=== PATIENT | female | born 1945 | race Caucasian/White ===

== ENCOUNTER → 2016-11-26 | Outpatient (CLI) | payer MEDICARE, BC ==
[2016-11-26 08:54] LABS: CHLORIDE,CL 108 mmol/L (98-110); SODIUM,NA 142 mmol/L (136-146)
== END ==
LOC: MW.CHFP 08:01
PROVIDERS: ATTEND Emergency Medicine
DX: I10 Essential (primary) hypertension (principal); K21.9 Gastro-esophageal reflux disease without esophagitis; K30 Functional dyspepsia
CPT/HCPCS: 36415; 80048; 80061; 99214

== ENCOUNTER → 2016-12-18 | Outpatient (CLI) | payer MEDICARE, BC | LOC: MW.CHFP 08:00 | PROVIDERS: ATTEND Emergency Medicine | DX: H10.10 Acute atopic conjunctivitis, unspecified eye (principal) | CPT/HCPCS: G0463 ==

== ENCOUNTER → 2016-12-27 | Outpatient (CLI) | payer MEDICARE, BC ==
--- NOTE | 2016-12-27 11:09 | US ---
ULTRASOUND EXAMINATION OF the left lower extremity WITH DOPPLER HISTORY: Pain FINDINGS: Examination of the left leg was performed from the groin to the calf region. All visualized segment s including common femoral, proximal greater saphenous, superficial femoral, popliteal and calf vein s appear patent with good compressibility and augmentation. There is no evidence of deep vein throm bosis. IMPRESSION: No evidence of a DVT.
== END ==
LOC: MW.CHFP 09:16
PROVIDERS: ATTEND Emergency Medicine
DX: M79.669 Pain in unspecified lower leg (principal)
CPT/HCPCS: 93971-26-LT; 93971-LT; G0463

== ENCOUNTER 2017-12-14 09:08 | Emergency (ER) | payer MEDICARE, BC ==
[2017-12-14] MEDS ORDERED: Sodium Chloride 0.9% 10 ML Syringe FLUSH PRN (09:48)
[2017-12-14] MEDS ORDERED: Sodium Chloride 0.9% 2.5 ML Syringe FLUSH PRN (09:48)
--- NOTE | 2017-12-14 09:51 | EDM.PDOC ---
ED HPI GENERAL MEDICAL PROBLEM - General Chief Complaint: Abdominal Pain Stated Complaint: ABDOMINAL PAIN Time Seen by Provider: 12/14/17 09:39 - History of Present Illness INITIAL COMMENTS - FREE TEXT/NARRATIVE: HISTORY AND PHYSICAL: History of present illness: The patient is a 72-year-old female has a history of hypertension and multiple myeloma and follows with Dr. Kirkland in our clinic and presents with complaints of one week of vague left lower and left mid abdominal pain without associated fevers chills nausea or vomiting. The patient said the pain got worse last evening and she had a restless night and she has not had a bowel movement for 2 days but then this morning did have a normal bowel movement without black or bloody stools. It was not hard in character this morning nor was it hard to pass. She said the bowel movement did not make her feel any better. She has no flank pain and no urinary complaints. Patient has a history of diverticulitis with flareups in the past and also has a surgical history of a hysterectomy appendectomy and colon resection for "ruptured intestines". She did not take anything specifically for pain. She has not had anything to eat or drink this morning. She describes the pain as annoying dull and deep and it radiates to her left back. For her history of multiple myeloma she is on oral chemotherapy. She also has an appointment with Dr. Kirkland in the clinic in several days but says she could not wait to see him due to the increase in pain last evening. Review of systems: As per history of present illness and below otherwise all systems reviewed and negative. Past medical history: As per history of present illness and as reviewed below otherwise noncontributory. Surgical history: As per history of present illness and as reviewed below otherwise noncontributory. Social history: No reported history of drug or alcohol abuse. Family history: As per history of present illness and as reviewed below otherwise noncontributory. Physical exam: General: Well-developed well-nourished female who moves easily in the ED without distress. Vital signs are noted by me HEENT: Atraumatic, normocephalic, negative for conjunctival pallor or scleral icterus, mucous membranes moist, throat clear, neck supple, nontender, trachea midline. Lungs: Clear to auscultation, breath sounds equal bilaterally, chest nontender. Heart: S1S2, regular rate and rhythm no overt murmurs Abdomen: Soft, nondistended, bowel sounds are slightly hypoactive but there is no tympany on percussion. There is discrete tenderness on palpation in the left lower and left mid abdominal areas with some voluntary guarding but no involuntary guarding or rebound. Negative for masses or hepatosplenomegaly. Negative for costovertebral tenderness. Pelvis: Stable nontender. Genitourinary: Deferred. Rectal: Deferred. Extremities: Atraumatic, negative for cords or calf pain. Neurovascular unremarkable. Neuro: Awake, alert, oriented. Cranial nerves II through XII unremarkable. Cerebellum unremarkable. Motor and sensory unremarkable throughout. Exam nonfocal. Diagnostics: CBC CMP lactic acid UA CT scan of the abdomen and pelvis Urine culture Therapeutics: IV fluids, patient deferred pain medications on my initial evaluation. Lynnette Dhillon testing results with the patient and have advised on increasing potassium in her diet. We will give her antibiotics for home as well as Bentyl and recommend close follow-up but she tells me she does have an appointment next week for follow-up. Impression: Left lower abdominal pain with descending colonic diverticulitis, UTI, mild hypokalemia Definitive disposition and diagnosis as appropriate pending reevaluation and review of above. left lower abd Pain Score (Numeric/FACES): 8 - Related Data Allergies Allergy/AdvReac Type Severity Reaction Status Date / Time codeine Allergy Difficulty Verified 12/21/15 14:58 Breathing Home Meds: Home Meds Bisoprolol/Hydrochlorothiazide [Bisoprolol/HCTZ 2.5-6.25 MG] 1 tab PO ACBRK [History] Potassium Chloride [Klor-Con 10] 2 tab PO ACBRK 01/01/14 [History] amLODIPine Besylate [Amlodipine Besylate] 5 mg PO ACBRK 01/01/14 [History] Aspirin 1 tab PO DAILY 12/17/15 [History] Calcium Carbonate/Vitamin D3 [Calcium 600 + Vit D Softgel] 1 cap PO DAILY [History] Cholecalciferol (Vitamin D3) [Vitamin D3] 1 tab PO DAILY 12/17/15 [History] Cyanocobalamin (Vitamin B12) [Vitamin B12] 1 tab PO DAILY 12/17/15 [History] Multivitamin [Multivitamins] 1 tab PO DAILY 12/17/15 [History] Lenalidomide [Revlimid] 20 mg PO DAILY 12/14/17 [History] Losartan [Cozaar] 100 mg PO DAILY 12/14/17 [History] Sucralfate 1 gm PO QID 12/14/17 [History] Past Medical History HEENT History: Reports: None Cardiovascular History: Reports: Hypertension Respiratory History: Reports: None Gastrointestinal History: Reports: Diverticulosis, Irritable Bowel Syndrome Other Gastrointestinal History: heartburn Genitourinary History: Reports: None 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 Dermatologic History: Reports: Other (See Below) Other Dermatologic History: Smoldering Myeloma - Infectious Disease History Infectious Disease History: Reports: Chicken Pox, Measles - Past Surgical History Head Surgeries/Procedures: Reports: None HEENT Surgical History: Reports: None GI Surgical History: Reports: Small Bowel Female Surgical History: Reports: Hysterectomy Endocrine Surgical History: Reports: None Neurological Surgical History: Reports: None Musculoskeletal Surgical History: Reports: None Social & Family History - Family History Family Medical History: Unobtainable HEENT: Reports: None Cardiac: Reports: None - Tobacco Use Smoking Status *Q: Never Smoker Month/Year Tobacco Last Used: Quit smoking 40 yrs ago Second Hand Smoke Exposure: No - Caffeine Use Caffeine Use: Reports: Soda - Alcohol Use Days Per Week of Alcohol Use: 0 Number of Drinks Per Day: 0 Total Drinks Per Week: 0 - Recreational Drug Use Recreational Drug Use: No ED ROS GENERAL - Review of Systems Review Of Systems: ROS reveals no pertinent complaints other than HPI. ED EXAM, GENERAL - Physical Exam Exam: See Below (See dictation) Course - Vital Signs Last Recorded V/S: Last Vital Signs Temp 36.9 C 12/14/17 11:38 Pulse 65 12/14/17 11:38 Resp 18 12/14/17 11:38 BP 99/49 L 12/14/17 11:38 Pulse Ox 96 12/14/17 11:38 - Orders/Labs/Meds Orders: Active Orders 24 hr Category Date Time Status Abdomen Pelvis w Cont [CT] Stat Exams 12/14/17 09:48 Taken CULTURE URINE [RM] Stat Lab 12/14/17 09:30 Received UA W/MICROSCOPIC [URIN] Stat Lab 12/14/17 09:30 Ordered Sodium Chloride 0.9% [Normal Saline] 500 ml Med 12/14/17 10:00 Active IV STAT Sodium Chloride 0.9% [Saline Flush] Med 12/14/17 09:48 Active 10 ml FLUSH ASDIRECTED PRN Sodium Chloride 0.9% [Saline Flush] Med 12/14/17 09:48 Active 2.5 ml FLUSH ASDIRECTED PRN metroNIDAZOLE/Normal Saline [Flagyl 500 MG in NS 100 ML Med 12/14/17 12:10 Active ] 500 mg Premix Bag 1 bag IV ONETIME Saline Lock Insert [OM.PC] Stat Oth 12/14/17 09:48 Ordered Medication Orders Sodium Chloride (Normal Saline) 500 mls @ 999 mls/hr IV STAT MARISA Last Admin: 12/14/17 10:24 Dose: 999 mls/hr Metronidazole 500 mg/ Premix 100 mls @ 100 mls/hr IV ONETIME ONE Stop: 12/14/17 13:09 Sodium Chloride (Saline Flush) 10 ml FLUSH ASDIRECTED PRN PRN Reason: Keep Vein Open Sodium Chloride (Saline Flush) 2.5 ml FLUSH ASDIRECTED PRN PRN Reason: Keep Vein Open Labs: Laboratory Tests 12/14/17 12/14/17 12/14/17 Range/Units 09:30 09:57 09:57 WBC 7.55 (4.0-11.0) K/uL RBC 3.61 L (4.30-5.90) M/uL Hgb 12.4 (12.0-16.0) g/dL Hct 35.2 L (36.0-46.0) % MCV 97.5 (80.0-98.0) fL MCH 34.3 H (27.0-32.0) pg MCHC 35.2 (31.0-37.0) g/dL RDW Std Deviation 46.1 (28.0-62.0) fl RDW Coeff of Bubba 13 (11.0-15.0) % Plt Count 192 (150-400) K/uL MPV 10.40 (7.40-12.00) fL Add Manual Diff YES Neutrophils % (Manual) 62 (48.0-80.0) % Band Neutrophils % 10 % Lymphocytes % (Manual) 13 L (16.0-40.0) % Monocytes % (Manual) 12 (0.0-15.0) % Eosinophils % (Manual) 3 (0.0-7.0) % Nucleated RBC % 0.0 /100WBC Absolute Seg Neuts 4.7 (1.4-5.7) Band Neutrophils # 0.8 Lymphocytes # (Manual) 1.0 (0.6-2.4) Monocytes # (Manual) 0.9 H (0.0-0.8) Eosinophils # (Manual) 0.2 (0.0-0.7) Nucleated RBCs # 0 K/uL Lactate 1.6 (0.20-2.00) mmol/L Sodium (136-145) mmol/L Potassium (3.5-5.1) mmol/L Chloride (98-107) mmol/L Carbon Dioxide (21.0-32.0) mmol/L BUN (7.0-18.0) mg/dL Creatinine (0.6-1.0) mg/dL Est Cr Clr Drug Dosing mL/min Estimated GFR (MDRD) ml/min Glucose (74-106) mg/dL Calcium (8.5-10.1) mg/dL Magnesium (1.5-2.0) mg/dL Total Bilirubin (0.2-1.0) mg/dL AST (15-37) IU/L ALT (14-63) IU/L Alkaline Phosphatase (46-116) U/L Total Protein (6.4-8.2) g/dL Albumin (3.4-5.0) g/dL Globulin (2.0-3.5) g/dL Albumin/Globulin Ratio (1.3-2.8) Urine Color YELLOW Urine Appearance CLEAR Urine pH 6.0 (5.0-8.0) Ur Specific Lincoln 1.020 (1.001-1.035) Urine Protein NEGATIVE (NEGATIVE) mg/dL Urine Glucose (UA) NEGATIVE (NEGATIVE) mg/dL Urine Ketones NEGATIVE (NEGATIVE) mg/dL Urine Occult Blood NEGATIVE (NEGATIVE) Urine Nitrite POSITIVE H (NEGATIVE) Urine Bilirubin NEGATIVE (NEGATIVE) Urine Urobilinogen 0.2 (<2.0) EU/dL Ur Leukocyte Esterase NEGATIVE (NEGATIVE) Urine RBC 0-1 (0-2/HPF) Urine WBC 0-1 (0-5/HPF) Ur Epithelial Cells OCCASIONAL (NONE-FEW) Urine Bacteria 1+ H (NEGATIVE) Urine Mucus LIGHT (NONE-MOD) 12/14/17 12/14/17 Range/Units 09:57 09:57 WBC (4.0-11.0) K/uL RBC (4.30-5.90) M/uL Hgb (12.0-16.0) g/dL Hct (36.0-46.0) % MCV (80.0-98.0) fL MCH (27.0-32.0) pg MCHC (31.0-37.0) g/dL RDW Std Deviation (28.0-62.0) fl RDW Coeff of Bubba (11.0-15.0) % Plt Count (150-400) K/uL MPV (7.40-12.00) fL Add Manual Diff Neutrophils % (Manual) (48.0-80.0) % Band Neutrophils % % Lymphocytes % (Manual) (16.0-40.0) % Monocytes % (Manual) (0.0-15.0) % Eosinophils % (Manual) (0.0-7.0) % Nucleated RBC % /100WBC Absolute Seg Neuts (1.4-5.7) Band Neutrophils # Lymphocytes # (Manual) (0.6-2.4) Monocytes # (Manual) (0.0-0.8) Eosinophils # (Manual) (0.0-0.7) Nucleated RBCs # K/uL Lactate (0.20-2.00) mmol/L Sodium 140 (136-145) mmol/L Potassium 2.8 L (3.5-5.1) mmol/L Chloride 103 (98-107) mmol/L Carbon Dioxide 27.4 (21.0-32.0) mmol/L BUN 9 (7.0-18.0) mg/dL Creatinine 0.9 (0.6-1.0) mg/dL Est Cr Clr Drug Dosing 49.16 mL/min Estimated GFR (MDRD) > 60.0 ml/min Glucose 111 H (74-106) mg/dL Calcium 9.0 (8.5-10.1) mg/dL Magnesium 1.9 (1.5-2.0) mg/dL Total Bilirubin 1.0 (0.2-1.0) mg/dL AST 13 L (15-37) IU/L ALT 14 (14-63) IU/L Alkaline Phosphatase 59 (46-116) U/L Total Protein 6.3 L (6.4-8.2) g/dL Albumin 2.9 L (3.4-5.0) g/dL Globulin 3.4 (2.0-3.5) g/dL Albumin/Globulin Ratio 0.9 L (1.3-2.8) Urine Color Urine Appearance Urine pH (5.0-8.0) Ur Specific Lincoln (1.001-1.035) Urine Protein (NEGATIVE) mg/dL Urine Glucose (UA) (NEGATIVE) mg/dL Urine Ketones (NEGATIVE) mg/dL Urine Occult Blood (NEGATIVE) Urine Nitrite (NEGATIVE) Urine Bilirubin (NEGATIVE) Urine Urobilinogen (<2.0) EU/dL Ur Leukocyte Esterase (NEGATIVE) Urine RBC (0-2/HPF) Urine WBC (0-5/HPF) Ur Epithelial Cells (NONE-FEW) Urine Bacteria (NEGATIVE) Urine Mucus (NONE-MOD) Meds: Medications Generic Name Dose Route Start Last Admin Trade Name Freq PRN Reason Stop Dose Admin Sodium Chloride 500 mls @ 999 mls/hr 12/14/17 10:00 12/14/17 10:24 Normal Saline IV 999 mls/hr STAT MARISA Administration Metronidazole 500 mg/ Premix 100 mls @ 100 mls/hr 12/14/17 12:10 IV 12/14/17 13:09 ONETIME ONE Sodium Chloride 10 ml 12/14/17 09:48 Saline Flush FLUSH ASDIRECTED PRN Keep Vein Open Sodium Chloride 2.5 ml 12/14/17 09:48 Saline Flush FLUSH ASDIRECTED PRN Keep Vein Open Discontinued Medications Generic Name Dose Route Start Last Admin Trade Name Freq PRN Reason Stop Dose Admin Ciprofloxacin 500 mg 12/14/17 12:10 Ciprofloxacin Hcl PO 12/14/17 12:11 ONETIME ONE Iopamidol 70 ml 12/14/17 11:04 12/14/17 11:20 Isovue Multipack-370 (76%) IVPUSH 12/14/17 11:05 70 ml ONETIME ONE Administration Potassium Chloride 40 meq 12/14/17 10:56 12/14/17 11:35 Klor-Con M20 PO 12/14/17 10:57 40 meq ONETIME ONE Administration Departure - Departure Time of Disposition: 12:15 Disposition: Home, Self-Care 01 Condition: Good Clinical Impression: Diverticulitis of colon UTI (urinary tract infection) Qualifiers: Urinary tract infection type: site unspecified Hematuria presence: without hematuria Qualified Code(s): N39.0 - Urinary tract infection, site not specified - Discharge Information Referrals: Jonnathan Kirkland MD [Primary Care Provider] - Forms: ED Department Discharge Additional Instructions: The following information is given to patients seen in the emergency department who are being discharged to home. This information is to outline your options for follow-up care. We provide all patients seen in our emergency department with a follow-up referral. The need for follow-up, as well as the timing and circumstances, are variable depending upon the specifics of your emergency department visit. If you don't have a primary care physician on staff, we will provide you with a referral. We always advise you to contact your personal physician following an emergency department visit to inform them of the circumstance of the visit and for follow-up with them and/or the need for any referrals to a consulting specialist. The emergency department will also refer you to a specialist when appropriate. This referral assures that you have the opportunity for followup care with a specialist. All of these measure are taken in an effort to provide you with optimal care, which includes your followup. Under all circumstances we always encourage you to contact your private physician who remains a resource for coordinating your care. When calling for followup care, please make the office aware that this follow-up is from your recent emergency room visit. If for any reason you are refused follow-up, please contact the [facility] emergency department at and ask to speak to the emergency department charge nurse. [facility]- Internal Medicine and Family [address] [address] Please fill all prescriptions and start them today. Push hydration and use over- the-counter meds for pain as needed. Please keep your appointment next week with your provider for follow-up and further care and return to ER as needed and as discussed. - My Orders Last 24 Hours: My Active Orders 12/14/17 09:30 CULTURE URINE [RM] Stat UA W/MICROSCOPIC [URIN] Stat 12/14/17 09:48 Abdomen Pelvis w Cont [CT] Stat Sodium Chloride 0.9% [Saline Flush] 10 ml FLUSH ASDIRECTED PRN Sodium Chloride 0.9% [Saline Flush] 2.5 ml FLUSH ASDIRECTED PRN Saline Lock Insert [OM.PC] Stat 12/14/17 10:00 Sodium Chloride 0.9% [Normal Saline] 500 ml IV STAT 12/14/17 12:10 metroNIDAZOLE/Normal Saline [Flagyl 500 MG in NS 100 ML] 500 mg Premix Bag 1 bag IV ONETIME - Assessment/Plan Last 24 Hours: My Active Orders 12/14/17 09:30 CULTURE URINE [RM] Stat UA W/MICROSCOPIC [URIN] Stat 12/14/17 09:48 Abdomen Pelvis w Cont [CT] Stat Sodium Chloride 0.9% [Saline Flush] 10 ml FLUSH ASDIRECTED PRN Sodium Chloride 0.9% [Saline Flush] 2.5 ml FLUSH ASDIRECTED PRN Saline Lock Insert [OM.PC] Stat 12/14/17 10:00 Sodium Chloride 0.9% [Normal Saline] 500 ml IV STAT 12/14/17 12:10 metroNIDAZOLE/Normal Saline [Flagyl 500 MG in NS 100 ML] 500 mg Premix Bag 1 bag IV ONETIME
[2017-12-14] MEDS ORDERED: Sodium Chloride 0.9% 500 ML IV SCH (10:00)
[2017-12-14 10:27] LABS: CHLORIDE,CL 103 mmol/L (98-107); SODIUM,NA 140 mmol/L (136-145)
[2017-12-14] MEDS ORDERED: Potassium Chloride 20 MEQ Tab.ER PO ONE (10:56)
[2017-12-14] MEDS ORDERED: Iopamidol 755 MG/ML 200 ML Multipack Bottle IVPUSH ONE (11:04)
[2017-12-14 11:41] VITALS: BP 99/49
[2017-12-14] MEDS ORDERED: Ciprofloxacin 500 MG Tab PO ONE (12:10)
[2017-12-14] MEDS ORDERED: metroNIDAZOLE/Normal Saline 500 MG in Premix Bag 1 BAG IV ONE (12:10)
--- NOTE | 2017-12-16 13:35 | CT ---
EXAM DATE: 12/14/17 PATIENT'S AGE: 72 Patient: YOLANDE SHEPPARD Facility: [place], [place] Site . Site : 1945 Study: CT Abdomen/Pelvis W NIKKY [id number] 11:26:31 AM Ordering Physician: Kit Martinez Final Report: INDICATION: Left lower quadrant abdominal pain. TECHNIQUE: CT abdomen and pelvis acquired with IV contrast. COMPARISON: CT 12/21/2015. FINDINGS: Lower chest: Unremarkable. Liver: There is focal fatty infiltration at the falciform ligament. Spleen: Unremarkable. Pancreas: Unremarkable. Gallbladder and bile ducts: Stable mild central intrahepatic biliary duct dilatation and dilatation of the proximal common bile duct is likely secondary to reservoir effect of cholecystectomy. Kidneys: Stable low-density lesion in the posterior lower pole of the right kidney. No other renal lesion. No hydronephrosis in either kidney. Adrenal glands: Stable thickening of the left adrenal gland. Right adrenal gland is normal. GI tract: There is abundant diverticulosis. There is wall thickening and pericolonic inflammatory stranding adjacent to the distal descending colon consistent with diverticulitis. No evidence of perforation or abscess formation. Likely sequelae of appendectomy noted. No acute small bowel abnormality. Vascular structures: No sign of aneurysm. Mild atherosclerotic calcification noted. Lymph nodes: Unremarkable. Miscellaneous: No ascites. No free air. Essentially stable appearance of left paramidline infraumbilical fat containing hernia. Pelvic Organs: The uterus is absent. Urinary bladder is normal. Bones: No acute abnormality. No suspicious bone lesion. Moderate degenerative disc disease at L5-S1. IMPRESSION: 1. Acute uncomplicated diverticulitis of the distal descending colon. 2. The remainder of the study is stable. Dictated by Jose Antonio Cho MD @ 12/14/2017 11:52:04 AM Please note that all CT scans at this facility use dose modulation, iterative reconstruction, and/or weight-based dosing when appropriate to reduce radiation dose to as low as reasonably achievable. Dictated by: Jose Antonio Cho MD @ 12/14/2017 11:52:21 (Electronic Signature) Report Signed by Proxy. [facility]
== END 2017-12-14 13:45 | disposition home or self-care (01) ==
LOC: MW.ED 09:08
DX: K57.30 Diverticulosis of large intestine without perforation or abscess without bleeding (principal); N39.0 Urinary tract infection, site not specified; I10 Essential (primary) hypertension; Z88.5 Allergy status to narcotic agent; Z79.82 Long term (current) use of aspirin; Z79.899 Other long term (current) drug therapy; Z87.891 Personal history of nicotine dependence; Z90.49 Acquired absence of other specified parts of digestive tract
CPT/HCPCS: 36415; 74177; 80053; 81001; 83605; 83735; 85025; 87086; 87088; 87186; 96361; 96365; 99284; A9270; J7040; Q9967; 99283

== ENCOUNTER 2018-01-16 13:23 | Emergency (ER) | payer MEDICARE, BC ==
[2018-01-16] MEDS ORDERED: Sodium Chloride 0.9% 1,000 ML IV ONE (14:13)
--- NOTE | 2018-01-16 14:22 | EDM.PDOC ---
ED HPI GENERAL MEDICAL PROBLEM - General Chief Complaint: Gastrointestinal Problem Stated Complaint: BLEEDING Time Seen by Provider: 01/16/18 13:55 Source of Information: Reports: Patient History Limitations: Reports: No Limitations - History of Present Illness INITIAL COMMENTS - FREE TEXT/NARRATIVE: HISTORY AND PHYSICAL: History of present illness: Patient is a 72-year-old female who presents to the emergency room today with complaints of abdominal pain 2 days and one episode bloody stool about 11:30 this afternoon. She does have a history of multiple GI problems which include but are not limited to IBS and diverticulitis. She states she was recently treated with antibiotics (which she has completed) for her diverticulitis but has never had bloody bowel movements in the past. She denies any fever, chills, chest pain, shortness of breath or cough. She denies any vomiting, diarrhea, constipation. Review of systems: As per history of present illness and below otherwise all systems reviewed and negative. Past medical history: As per history of present illness and as reviewed below otherwise noncontributory. Surgical history: As per history of present illness and as reviewed below otherwise noncontributory. Social history: No reported history of drug or alcohol abuse. Family history: As per history of present illness and as reviewed below otherwise noncontributory. Physical exam: General: Well-developed and well-nourished 72-year-old female. Alert and oriented. Nontoxic appearing and in no acute distress. HEENT: Atraumatic, normocephalic, pupils equal and reactive bilaterally, negative for conjunctival pallor or scleral icterus, mucous membranes moist, throat clear, neck supple, nontender, trachea midline. No drooling or trismus noted. No meningeal signs Lungs: Clear to auscultation, breath sounds equal bilaterally, chest nontender. Heart: S1S2, regular rate and rhythm without overt murmur Abdomen: Soft, nondistended, generalized/diffuse tenderness in all 4 quadrants. Negative for masses or hepatosplenomegaly. Mild costovertebral tenderness to right flank. Pelvis: Stable nontender. Genitourinary: Deferred. Rectal: This was done with a new vehicle sales consultant at the bedside. Patient does have external hemorrhoids noted. Good rectal tone. Hemoccult was positive. Although please note that he stool sample did not have any obvious blood in the sample or on my gloved finger. Skin: Intact, warm, dry. No lesions or rashes noted. Extremities: Atraumatic, negative for cords or calf pain. Neurovascular unremarkable. Neuro: Awake, alert, oriented. Cranial nerves II through XII unremarkable. Cerebellum unremarkable. Motor and sensory unremarkable throughout. Exam nonfocal. Notes: Rectal exam was done with new vehicle sales consultant at bedside. She is Hemoccult positive. We' ll do a CT of her abdomen and pelvis due to her multiple GI conditions/previous surgeries. Patient and deny any further questions at this time. Patient does not currently have an elevated WBC. Her hemoglobin is stable from previous lab draws. CT of the abdomen shows diverticulosis with resolution diverticulitis. This information was shared with the patient. She has not had any bloody stools, just the one isolated episode. She voices that she leaves that she had "hemorrhoid that broke open and let loose". She denies any dizziness or lightheadedness when changing positions or moving about. Vital signs are stable. States that she is comfortable going home, declines admission. Diagnostics: CBC, CMP, H. pylori CT abdomen and pelvis, UA Therapeutics: IV fluid, Bentyl PO Impression: Abdominal Pain History of Diverticulosis Plan: 1. An appointment has been made for you to see Dr. Zafar tomorrow (01/17/2018) at 10:30am at [facility]. 2. As we discussed, please follow-up with your primary care provider for further evaluation and management. Return to the ED as needed and as discussed. Definitive disposition and diagnosis as appropriate pending reevaluation and review of above. Bilateral Lower Abdomen Pain Score (Numeric/FACES): 8 - Related Data Allergies Allergy/AdvReac Type Severity Reaction Status Date / Time codeine Allergy Difficulty Verified 01/16/18 14:08 Breathing Home Meds: Home Meds Bisoprolol/Hydrochlorothiazide [Bisoprolol/HCTZ 2.5-6.25 MG] 1 tab PO ACBRK [History] Potassium Chloride [Klor-Con 10] 2 tab PO ACBRK 01/01/14 [History] amLODIPine Besylate [Amlodipine Besylate] 5 mg PO ACBRK 01/01/14 [History] Aspirin 1 tab PO DAILY 12/17/15 [History] Calcium Carbonate/Vitamin D3 [Calcium 600 + Vit D Softgel] 1 cap PO DAILY [History] Cholecalciferol (Vitamin D3) [Vitamin D3] 1 tab PO DAILY 12/17/15 [History] Cyanocobalamin (Vitamin B12) [Vitamin B12] 1 tab PO DAILY 12/17/15 [History] Multivitamin [Multivitamins] 1 tab PO DAILY 12/17/15 [History] Losartan [Cozaar] 100 mg PO DAILY 12/14/17 [History] Sucralfate 1 gm PO QID 12/14/17 [History] Magnesium Amino Acid Chelate [Magnesium] 100 mg PO DAILY 01/16/18 [History] Past Medical History HEENT History: Reports: Impaired Vision Cardiovascular History: Reports: Hypertension Respiratory History: Reports: None Gastrointestinal History: Reports: Diverticulosis, Irritable Bowel Syndrome Other Gastrointestinal History: heartburn Genitourinary History: Reports: None 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 Dermatologic History: Reports: Other (See Below) Other Dermatologic History: multiple Myeloma - Infectious Disease History Infectious Disease History: Reports: Chicken Pox, Measles - Past Surgical History Head Surgeries/Procedures: Reports: None HEENT Surgical History: Reports: None GI Surgical History: Reports: Cholecystectomy, Small Bowel, Other (See Below) Other GI Surgeries/Procedures: ruptured intestines, dumping syndrome Female Surgical History: Reports: Breast Biopsy, Hysterectomy Endocrine Surgical History: Reports: None Neurological Surgical History: Reports: None Musculoskeletal Surgical History: Reports: None Social & Family History - Family History Family Medical History: Noncontributory HEENT: Reports: None Cardiac: Reports: None - Tobacco Use Smoking Status *Q: Former Smoker Used Tobacco, but Quit: Yes Month/Year Tobacco Last Used: 1977 - Caffeine Use Caffeine Use: Reports: Soda - Recreational Drug Use Recreational Drug Use: No ED ROS GENERAL - Review of Systems Review Of Systems: ROS reveals no pertinent complaints other than HPI. ED EXAM, GI/ABD - Physical Exam Exam: See Below (See dictation) Course - Vital Signs Last Recorded V/S: Last Vital Signs Temp 98.3 F 01/16/18 14:05 Pulse 58 L 01/16/18 14:13 Resp 18 01/16/18 14:13 BP 111/56 L 01/16/18 14:13 Pulse Ox 98 01/16/18 14:13 - Orders/Labs/Meds Orders: Active Orders 24 hr Category Date Time Status Fecal Occult Blood Collection [RC] ASDIRECTED Care 01/16/18 14:20 Active UA W/MICROSCOPIC [URIN] Stat Lab 01/16/18 14:13 Ordered Labs: Laboratory Tests 01/16/18 01/16/18 01/16/18 Range/Units 14:50 14:50 14:50 WBC 3.60 L (4.0-11.0) K/uL RBC 3.45 L (4.30-5.90) M/uL Hgb 11.7 L (12.0-16.0) g/dL Hct 33.9 L (36.0-46.0) % MCV 98.3 H (80.0-98.0) fL MCH 33.9 H (27.0-32.0) pg MCHC 34.5 (31.0-37.0) g/dL RDW Std Deviation 47.9 (28.0-62.0) fl RDW Coeff of Bubba 13 (11.0-15.0) % Plt Count 183 (150-400) K/uL MPV 10.30 (7.40-12.00) fL Add Manual Diff YES Neutrophils % (Manual) 44 L (48.0-80.0) % Lymphocytes % (Manual) 37 (16.0-40.0) % Monocytes % (Manual) 14 (0.0-15.0) % Eosinophils % (Manual) 5 (0.0-7.0) % Nucleated RBC % 0.0 /100WBC Absolute Seg Neuts 1.6 (1.4-5.7) Lymphocytes # (Manual) 1.3 (0.6-2.4) Monocytes # (Manual) 0.5 (0.0-0.8) Eosinophils # (Manual) 0.2 (0.0-0.7) Nucleated RBCs # 0 K/uL Sodium 141 (136-145) mmol/L Potassium 4.1 (3.5-5.1) mmol/L Chloride 107 (98-107) mmol/L Carbon Dioxide 27.1 (21.0-32.0) mmol/L BUN 14 (7.0-18.0) mg/dL Creatinine 1.0 (0.6-1.0) mg/dL Est Cr Clr Drug Dosing 43.32 mL/min Estimated GFR (MDRD) 54.2 ml/min Glucose 101 (74-106) mg/dL Calcium 9.5 (8.5-10.1) mg/dL Total Bilirubin 0.7 (0.2-1.0) mg/dL AST 14 L (15-37) IU/L ALT 19 (14-63) IU/L Alkaline Phosphatase 47 (46-116) U/L Total Protein 6.2 L (6.4-8.2) g/dL Albumin 3.2 L (3.4-5.0) g/dL Globulin 3.0 (2.0-3.5) g/dL Albumin/Globulin Ratio 1.1 L (1.3-2.8) H. pylori IgG Antibody NEGATIVE (NEG) Meds: Medications Discontinued Medications Generic Name Dose Route Start Last Admin Trade Name Freq PRN Reason Stop Dose Admin Dicyclomine HCl 10 mg 01/16/18 16:10 Bentyl PO 01/16/18 16:11 ONETIME ONE Sodium Chloride 1,000 mls @ 999 mls/hr 01/16/18 14:13 01/16/18 15:33 Normal Saline IV 01/16/18 15:13 999 mls/hr STAT ONE Administration Departure - Departure Time of Disposition: 16:17 Disposition: Home, Self-Care 01 Clinical Impression: Abdominal pain Qualifiers: Abdominal location: generalized Qualified Code(s): R10.84 - Generalized abdominal pain - Discharge Information Instructions: Abdominal Pain, Adult, [id number] Referrals: PCP,None [Primary Care Provider] - Forms: ED Department Discharge Additional Instructions: The following information is given to patients seen in the emergency department who are being discharged to home. This information is to outline your options for follow-up care. We provide all patients seen in our emergency department with a follow-up referral. The need for follow-up, as well as the timing and circumstances, are variable depending upon the specifics of your emergency department visit. If you don't have a primary care physician on staff, we will provide you with a referral. We always advise you to contact your personal physician following an emergency department visit to inform them of the circumstance of the visit and for follow-up with them and/or the need for any referrals to a consulting specialist. The emergency department will also refer you to a specialist when appropriate. This referral assures that you have the opportunity for follow-up care with a specialist. All of these measure are taken in an effort to provide you with optimal care, which includes your follow-up. Under all circumstances we always encourage you to contact your private physician who remains a resource for coordinating your care. When calling for follow-up care, please make the office aware that this follow-up is from your recent emergency room visit. If for any reason you are refused follow-up, please contact the [facility] Emergency Department at and asked to speak to the emergency department charge nurse. [facility] [address] [place] [id number] 1. An appointment has been made for you to see Dr. Zafar tomorrow (01/17/2018) at 10:30am at [facility]. 2. As we discussed, please follow-up with your primary care provider for further evaluation and management. Return to the ED as needed and as discussed. - My Orders Last 24 Hours: My Active Orders 01/16/18 14:13 UA W/MICROSCOPIC [URIN] Stat 01/16/18 14:20 Fecal Occult Blood Collection [RC] ASDIRECTED - Assessment/Plan Last 24 Hours: My Active Orders 01/16/18 14:13 UA W/MICROSCOPIC [URIN] Stat 01/16/18 14:20 Fecal Occult Blood Collection [RC] ASDIRECTED
[2018-01-16 15:36] VITALS: BP 111/56
--- NOTE | 2018-01-16 15:45 | CT ---
CT scan of the abdomen and pelvis Clinical history: Abdominal pain and bloody stools. Comparison: Prior examination December 06 8017. Findings: Lung bases are clear. The liver spleen and pancreas are normal. Patient has undergone prior cholecystectomy. The kidneys and retroperitoneum are normal. There is a surgical staple line in the right lower quadrant with no evidence to suggest bowel obstruc tion. Somewhat prominent fluid-filled segment of ascending colon with surgical clips present. There m ay have been partial resection of the cecum. Fluid extends into the right upper quadrant within colon . Previous findings of diverticulitis in the left lower quadrant are no longer evident. There is no e vidence of intra-abdominal abscess or intraperitoneal fluid collection. Diverticulosis of the descend ing colon is still noted. Impression: Somewhat prominent fluid containing right colon with possible partial resection of the ce cum. No intra-abdominal intracranial acute pathology. Diverticulosis with interval resolution of dive rticulitis
[2018-01-16] MEDS ORDERED: Dicyclomine 10 MG Cap PO ONE (16:10)
== END 2018-01-16 17:00 | disposition home or self-care (01) ==
LOC: MW.ED 13:23
DX: R10.84 Generalized abdominal pain (principal); I10 Essential (primary) hypertension; Z88.5 Allergy status to narcotic agent; Z79.899 Other long term (current) drug therapy; Z87.891 Personal history of nicotine dependence
CPT/HCPCS: 36415; 74177; 80053; 85025; 86677; 96360; 99284; A9270; J7040

== ENCOUNTER 2019-04-18 13:26 | Emergency (ER) | payer MEDICARE, BC ==
[2019-04-18] MEDS ORDERED: Ketorolac 30 MG/ML SDV IVPUSH ONE (13:39)
[2019-04-18] MEDS ORDERED: Sodium Chloride 0.9% 500 ML IV SCH (13:45)
--- NOTE | 2019-04-18 13:46 | EDM.PDOC ---
ED HPI GENERAL MEDICAL PROBLEM - General Chief Complaint: Headache Stated Complaint: HEADACHE Time Seen by Provider: 04/18/19 13:38 Source of Information: Reports: Patient History Limitations: Reports: No Limitations - History of Present Illness INITIAL COMMENTS - FREE TEXT/NARRATIVE: HISTORY AND PHYSICAL: History of present illness: Patient is a 73-year-old female who presents to the emergency room with complaints of a headache that is on the right side of her scalp starting above the right ear and goes down into her posterior neck. She states she does have intermittent blurred vision that lasts just a few seconds and feels like she is able to blink a few times and clear her vision back to normal. She does have mild light sensitivity. Denies any head injury, trauma or falls. Patient denies any fever, chills, syncope or near syncope. Denies any difficulty with balance or dizziness. Denies any chest pain, back pain, shortness of breath or cough. Denies any GI or symptoms. Patient has been eating and drinking appropriately. Review of systems: As per history of present illness and below otherwise all systems reviewed and negative. Past medical history: As per history of present illness and as reviewed below otherwise noncontributory. Surgical history: As per history of present illness and as reviewed below otherwise noncontributory. Social history: See social history for further information Family history: As per history of present illness and as reviewed below otherwise noncontributory. Physical exam: General: Well-developed and well-nourished 73-year-old female. Alert and oriented. Nontoxic appearing and in no acute distress. HEENT: Atraumatic, normocephalic, pupils equal and reactive bilaterally, negative for conjunctival pallor or scleral icterus, mucous membranes moist, TMs normal bilaterally, throat clear, neck supple, nontender, trachea midline. No drooling or trismus noted. No meningeal signs. No hot potato voice noted. Lungs: Clear to auscultation, breath sounds equal bilaterally, chest nontender. Heart: S1S2, regular rate and rhythm without overt murmur Abdomen: Soft, nondistended, nontender. Skin: Intact, warm, dry. No lesions or rashes noted. Extremities: Atraumatic, moves all extremities per self without difficulty or deficits, negative for cords or calf pain. Neurovascular unremarkable. Neuro: Awake, alert, oriented. Cranial nerves II through XII unremarkable. Cerebellum unremarkable. Motor and sensory unremarkable throughout. Exam nonfocal. Notes: Patient is describing a tension type headache although does have some migraine components with the light sensitivity. She is agreeable to lab work and IV medications. is at bedside and driving. Lab work is unremarkable. Head CT shows no acute findings. Patient found relief with medications. Supportive care measures were reviewed and discussed. Voices understanding and is agreeable to plan of care. Denies any further questions or concerns at this time. Diagnostics: Head CT Therapeutics: IV fluids, Toradol, Ativan Prescription: None Impression: Headache Plan: 1. Please do not drive the remainder of the afternoon is a medication he received today may cause drowsiness. 2. May use Tylenol and/or ibuprofen as needed for pain management. 3. Follow-up with your primary care provider as we discussed. Return to the ED as needed and as discussed. Definitive disposition and diagnosis as appropriate pending reevaluation and review of above. right side of head Pain Score (Numeric/FACES): 7 - Related Data Allergies Allergy/AdvReac Type Severity Reaction Status Date / Time codeine Allergy Difficulty Verified 04/18/19 13:36 Breathing Home Meds: Home Meds Bisoprolol/Hydrochlorothiazide [Bisoprolol/HCTZ 2.5-6.25 MG] 1 tab PO ACBRK [History] Potassium Chloride [Klor-Con 10] 2 tab PO ACBRK 01/01/14 [History] amLODIPine Besylate [Amlodipine Besylate] 5 mg PO ACBRK 01/01/14 [History] Aspirin 1 tab PO DAILY 12/17/15 [History] Calcium Carbonate/Vitamin D3 [Calcium 600 + Vit D Softgel] 1 cap PO DAILY [History] Cholecalciferol (Vitamin D3) [Vitamin D3] 1 tab PO DAILY 12/17/15 [History] Cyanocobalamin (Vitamin B12) [Vitamin B12] 1 tab PO DAILY 12/17/15 [History] Multivitamin [Multivitamins] 1 tab PO DAILY 12/17/15 [History] Losartan [Cozaar] 100 mg PO DAILY 12/14/17 [History] Sucralfate 1 gm PO QID 12/14/17 [History] Magnesium Amino Acid Chelate [Magnesium] 100 mg PO DAILY 01/16/18 [History] Past Medical History HEENT History: Reports: Impaired Vision Cardiovascular History: Reports: Hypertension Respiratory History: Reports: None Gastrointestinal History: Reports: Diverticulosis Other Gastrointestinal History: heartburn Genitourinary History: Reports: 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 Dermatologic History: Reports: Other (See Below) Other Dermatologic History: multiple Myeloma - Infectious Disease History Infectious Disease History: Reports: Chicken Pox - Past Surgical History Head Surgeries/Procedures: Reports: None HEENT Surgical History: Reports: None GI Surgical History: Reports: Cholecystectomy, Small Bowel, Other (See Below) Other GI Surgeries/Procedures: ruptured intestines, dumping syndrome Female Surgical History: Reports: Breast Biopsy, Hysterectomy Endocrine Surgical History: Reports: None Neurological Surgical History: Reports: None Musculoskeletal Surgical History: Reports: None Social & Family History - Family History Family Medical History: Noncontributory HEENT: Reports: None Cardiac: Reports: None - Tobacco Use Smoking Status *Q: Never Smoker - Caffeine Use Caffeine Use: Reports: Soda - Recreational Drug Use Recreational Drug Use: No ED ROS GENERAL - Review of Systems Review Of Systems: ROS reveals no pertinent complaints other than HPI. - Physical Exam Exam: See Below (See dictation) Course - Vital Signs Last Recorded V/S: Last Vital Signs Temp 96.4 F 04/18/19 13:37 Pulse 83 04/18/19 15:48 Resp 18 04/18/19 15:48 BP 147/86 H 04/18/19 15:48 Pulse Ox 95 04/18/19 15:48 - Orders/Labs/Meds Orders: Active Orders 24 hr Category Date Time Status Visual Acuity [Vision Test] [RC] ASDIRECTED Care 04/18/19 13:54 Active Labs: Laboratory Tests 04/18/19 04/18/19 Range/Units 13:53 13:53 WBC 3.61 L (4.0-11.0) K/uL RBC 3.76 L (4.30-5.90) M/uL Hgb 12.2 (12.0-16.0) g/dL Hct 36.6 (36.0-46.0) % MCV 97.3 (80.0-98.0) fL MCH 32.4 H (27.0-32.0) pg MCHC 33.3 (31.0-37.0) g/dL RDW Std Deviation 50.8 (28.0-62.0) fl RDW Coeff of Bubba 14 (11.0-15.0) % Plt Count 192 (150-400) K/uL MPV 10.80 (7.40-12.00) fL Neut % (Auto) 46.9 L (48.0-80.0) % Lymph % (Auto) 32.1 (16.0-40.0) % Gooding % (Auto) 11.6 (0.0-15.0) % Eos % (Auto) 9.1 H (0.0-7.0) % Baso % (Auto) 0.3 (0.0-1.5) % Neut # (Auto) 1.7 (1.4-5.7) K/uL Lymph # (Auto) 1.2 (0.6-2.4) K/uL Gooding # (Auto) 0.4 (0.0-0.8) K/uL Eos # (Auto) 0.3 (0.0-0.7) K/uL Baso # (Auto) 0.0 (0.0-0.1) K/uL Nucleated RBC % 0.0 /100WBC Nucleated RBCs # 0 K/uL ESR 8 (0-29) mm/hr Sodium 146 H (136-145) mmol/L Potassium 3.9 (3.5-5.1) mmol/L Chloride 106 (98-107) mmol/L Carbon Dioxide 30.0 (21.0-32.0) mmol/L BUN 10 (7.0-18.0) mg/dL Creatinine 0.9 (0.6-1.0) mg/dL Est Cr Clr Drug Dosing 46.64 mL/min Estimated GFR (MDRD) > 60.0 ml/min Glucose 86 (74-106) mg/dL Calcium 9.2 (8.5-10.1) mg/dL Total Bilirubin 0.6 (0.2-1.0) mg/dL AST 14 L (15-37) IU/L ALT 20 (14-63) IU/L Alkaline Phosphatase 109 (46-116) U/L Total Protein 6.0 L (6.4-8.2) g/dL Albumin 3.2 L (3.4-5.0) g/dL Globulin 2.8 (2.6-4.0) g/dL Albumin/Globulin Ratio 1.1 (0.9-1.6) Meds: Medications Discontinued Medications Generic Name Dose Route Start Last Admin Trade Name Nara PRN Reason Stop Dose Admin Sodium Chloride 500 mls @ 999 mls/hr 04/18/19 13:45 04/18/19 14:17 Normal Saline IV 999 mls/hr STAT MARISA Administration Ketorolac Tromethamine 30 mg 04/18/19 13:39 04/18/19 14:18 Toradol IVPUSH 04/18/19 13:40 30 mg ONETIME ONE Administration Lorazepam 0.5 mg 04/18/19 14:32 04/18/19 14:42 Ativan IVPUSH 04/18/19 14:33 0.5 mg ONETIME ONE Administration Departure - Departure Time of Disposition: 15:35 Disposition: Home, Self-Care 01 Clinical Impression: Migraine - Discharge Information Instructions: Migraine Headache, [id number] Referrals: Jonnathan Kirkland MD [Primary Care Provider] - Forms: ED Department Discharge Additional Instructions: The following information is given to patients seen in the emergency department who are being discharged to home. This information is to outline your options for follow-up care. We provide all patients seen in our emergency department with a follow-up referral. The need for follow-up, as well as the timing and circumstances, are variable depending upon the specifics of your emergency department visit. If you don't have a primary care physician on staff, we will provide you with a referral. We always advise you to contact your personal physician following an emergency department visit to inform them of the circumstance of the visit and for follow-up with them and/or the need for any referrals to a consulting specialist. The emergency department will also refer you to a specialist when appropriate. This referral assures that you have the opportunity for follow-up care with a specialist. All of these measure are taken in an effort to provide you with optimal care, which includes your follow-up. Under all circumstances we always encourage you to contact your private physician who remains a resource for coordinating your care. When calling for follow-up care, please make the office aware that this follow-up is from your recent emergency room visit. If for any reason you are refused follow-up, please contact the [facility] Emergency Department at and asked to speak to the emergency department charge nurse. [facility] [address], [place] [address] [facility] [address] [place] [id number] [address] not drive the remainder of the afternoon is a medication he received today may cause drowsiness. 2. May use Tylenol and/or ibuprofen as needed for pain management. 3. Follow-up with your primary care provider as we discussed. Return to the ED as needed and as discussed. - My Orders Last 24 Hours: My Active Orders 04/18/19 13:54 Visual Acuity [Vision Test] [RC] ASDIRECTED - Assessment/Plan Last 24 Hours: My Active Orders 04/18/19 13:54 Visual Acuity [Vision Test] [RC] ASDIRECTED
[2019-04-18 14:15] LABS: CHLORIDE,CL 106 mmol/L (98-107); SODIUM,NA 146 mmol/L (136-145)
[2019-04-18] MEDS ORDERED: LORazepam 2 MG/ML SDV IVPUSH ONE (14:32)
--- NOTE | 2019-04-18 15:28 | CT ---
INDICATION: Headache. TECHNIQUE: CT head without IV contrast. FINDINGS: No acute intracranial hemorrhage, edema, or mass effect. Ill-defined dense calcifications along the right anterior lateral mid and lower cerebellum are of uncertain etiology. These are likely chronic and/or dystrophic but are nonspecific. These calcifications extend over an area of 1.5 cm. Consider comparison with prior imaging of the head to ensure this is stable. 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 Mild cerebral and minimal cerebellar atrophy. Small calcification in the left aspect of the maria l benign. Remainder negative. IMPRESSION: 1. No acute intracranial disease. 2. Focal area of ill-defined nodular dense calcifications in the right mid to lower anterior cerebellum are likely dystrophic and/or chronic in etiology. Comparison with any available imaging of the head or followup imaging would be helpful ensuring these are stable. 3. Other chronic findings intracranially as above. Please note that all CT scans at this facility use dose modulation, iterative reconstruction, and/or weight-based dosing when appropriate to reduce radiation dose to as low as reasonably achievable. Dictated by Pradip Purdy MD @ Apr 18 2019 3:22PM Signed by Dr. Pradip Purdy @ Apr 18 2019 3:27PM
[2019-04-18 15:48] VITALS: BP 147/86
== END 2019-04-18 15:48 | disposition home or self-care (01) ==
LOC: MW.ED 13:26
DX: R51 Headache (principal); I10 Essential (primary) hypertension; Z79.899 Other long term (current) drug therapy; Z88.5 Allergy status to narcotic agent
CPT/HCPCS: 70450; 80053; 85025; 85652; 96361; 96374; 96375; 99284; J1885; J2060; J7040

== ENCOUNTER 2020-03-12 13:25 | Emergency (ER) | payer MEDICARE, BC ==
[2020-03-12] MEDS ORDERED: Sodium Chloride 0.9% 10 ML Syringe FLUSH PRN (13:42)
[2020-03-12] MEDS ORDERED: Sodium Chloride 0.9% 2.5 ML Syringe FLUSH PRN (13:42)
[2020-03-12 14:34] LABS: BLOOD UREA NITROGEN,BUN 12 mg/dL (7.0-18.0); CARBON DIOXIDE,CO2 28.3 mmol/L (21.0-32.0); CHLORIDE,CL 104 mmol/L (98-107); GLUCOSE RANDOM 88 mg/dL (74-106); LIPASE 252 U/L (73-393); POTASSIUM,K 3.1 mmol/L (3.5-5.1); SODIUM,NA 142 mmol/L (136-145)
--- NOTE | 2020-03-12 15:37 | EDM.PDOC ---
ED HPI GENERAL MEDICAL PROBLEM - General Chief Complaint: Gastrointestinal Problem Stated Complaint: BLOOD IN STOOL Time Seen by Provider: 03/12/20 13:32 Source of Information: Reports: Patient History Limitations: Reports: No Limitations - History of Present Illness INITIAL COMMENTS - FREE TEXT/NARRATIVE: 74-year-old female with history of diverticulosis, multiple myeloma presents with rectal bleeding today. She complained of melanotic stool followed by bright red blood per rectum. She denies fever, chills, chest pain, lightheadedness, dizziness, abdominal pain, N,V,D, dysuria. She recently had chemotherapy. ROS: A 10-point review of systems, other than pertinent positives and negatives as stated per HPI, is otherwise negative Past medical history: No additional pertinent history Past Surgical history: No additional pertinent history Social history: No additional pertinent history Family history: No additional pertinent history PHYSICAL EXAM General: AOx4, GCS = 15, No distress HEENT: dry mucous membrane Neck: supple, no meningismus, no Kernig or Brudzinski Cardiac: S1S2 RRR Respiratory: CTAB, no crackles or rales, no wheezing Abdomen: Soft, nontender, no rebound or guarding, nondistended, no pulsatile mass. NO mckinley rectal bleeding on rectal exam, no obvious bleeding on TEMI, however hemoccult positive Back: nontender Musculoskeletal: NVI distally, no deformity Neuro: No focal deficits. - Related Data Allergies Allergy/AdvReac Type Severity Reaction Status Date / Time codeine Allergy Difficulty Verified 03/12/20 13:38 Breathing Home Meds: Home Meds Potassium Chloride [Klor-Con 10] 2 tab PO ACBRK 01/01/14 [History] Aspirin 1 tab PO DAILY 12/17/15 [History] Calcium Carbonate/Vitamin D3 [Calcium 600 + Vit D Softgel] 1 cap PO DAILY 12/17/15 [History] Cholecalciferol (Vitamin D3) [Vitamin D3] 1 tab PO DAILY 12/17/15 [History] Multivitamin [Multivitamins] 1 tab PO DAILY 12/17/15 [History] Losartan [Cozaar] 100 mg PO DAILY 12/14/17 [History] Ciprofloxacin [Ciprofloxacin HCl] 500 mg PO BID #20 tab 03/12/20 [Rx] Lenalidomide [Revlimid] 10 mg PO DAILY 03/12/20 [History] metroNIDAZOLE [Flagyl] 500 mg PO Q8H #30 tab 03/12/20 [Rx] Past Medical History HEENT History: Reports: Impaired Vision Cardiovascular History: Reports: Hypertension Respiratory History: Reports: None Gastrointestinal History: Reports: Diverticulosis Other Gastrointestinal History: heartburn Genitourinary History: Reports: None 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 Dermatologic History: Reports: Other (See Below) Other Dermatologic History: multiple Myeloma - Infectious Disease History Infectious Disease History: Reports: Chicken Pox - Past Surgical History Head Surgeries/Procedures: Reports: None HEENT Surgical History: Reports: None GI Surgical History: Reports: Cholecystectomy, Small Bowel, Other (See Below) Other GI Surgeries/Procedures: ruptured intestines, dumping syndrome Female Surgical History: Reports: Breast Biopsy, Hysterectomy Endocrine Surgical History: Reports: None Neurological Surgical History: Reports: None Musculoskeletal Surgical History: Reports: None Social & Family History - Family History Family Medical History: Noncontributory HEENT: Reports: None Cardiac: Reports: None - Tobacco Use Smoking Status *Q: Never Smoker - Caffeine Use Caffeine Use: Reports: Soda ED ROS GENERAL - Review of Systems Review Of Systems: Comprehensive ROS is negative, except as noted in HPI. ED EXAM, GENERAL - Physical Exam Exam: See Below (see dictation) EKG INTERPRETATION EKG Interpretation Comments: 76 Bpm, NSR, normal QRS interval, no STEMI. EKG and rhythm strip interpreted by me at 1659 Course - Vital Signs Last Recorded V/S: Last Vital Signs Temp 97.8 F 03/12/20 13:39 Pulse 86 03/12/20 13:39 Resp 17 03/12/20 13:39 BP 145/96 H 03/12/20 13:39 Pulse Ox 98 03/12/20 13:39 - Orders/Labs/Meds Orders: Active Orders 24 hr Category Date Time Status EKG Documentation Completion [RC] STAT Care 03/12/20 13:43 Active PROCALCITONIN [REF] Stat Lab 03/12/20 13:48 Received Sodium Chloride 0.9% [Saline Flush] Med 03/12/20 13:42 Active 10 ml FLUSH ASDIRECTED PRN Sodium Chloride 0.9% [Saline Flush] Med 03/12/20 13:42 Active 2.5 ml FLUSH ASDIRECTED PRN Saline Lock Insert [OM.PC] Stat Oth 03/12/20 13:42 Ordered Medication Orders Sodium Chloride (Saline Flush) 10 ml FLUSH ASDIRECTED PRN PRN Reason: Keep Vein Open Sodium Chloride (Saline Flush) 2.5 ml FLUSH ASDIRECTED PRN PRN Reason: Keep Vein Open Labs: Laboratory Tests 03/12/20 03/12/20 03/12/20 Range/Units 13:48 13:48 13:48 WBC 7.08 (4.0-11.0) K/uL RBC 3.98 L (4.30-5.90) M/uL Hgb 12.8 (12.0-16.0) g/dL Hct 38.5 (36.0-46.0) % MCV 96.7 (80.0-98.0) fL MCH 32.2 H (27.0-32.0) pg MCHC 33.2 (31.0-37.0) g/dL RDW Std Deviation 51.3 (28.0-62.0) fl RDW Coeff of Bubba 14 (11.0-15.0) % Plt Count 187 (150-400) K/uL MPV 11.00 (7.40-12.00) fL Neut % (Auto) 62.8 (48.0-80.0) % Lymph % (Auto) 21.5 (16.0-40.0) % Dyer % (Auto) 7.6 (0.0-15.0) % Eos % (Auto) 7.8 H (0.0-7.0) % Baso % (Auto) 0.3 (0.0-1.5) % Neut # (Auto) 4.5 (1.4-5.7) K/uL Lymph # (Auto) 1.5 (0.6-2.4) K/uL Dyer # (Auto) 0.5 (0.0-0.8) K/uL Eos # (Auto) 0.6 (0.0-0.7) K/uL Baso # (Auto) 0.0 (0.0-0.1) K/uL Nucleated RBC % 0.0 /100WBC Nucleated RBCs # 0 K/uL INR 0.97 APTT (18.6-31.3) SEC Lactate 1.9 (0.20-2.00) mmol/L Sodium (136-145) mmol/L Potassium (3.5-5.1) mmol/L Chloride (98-107) mmol/L Carbon Dioxide (21.0-32.0) mmol/L BUN (7.0-18.0) mg/dL Creatinine (0.6-1.0) mg/dL Est Cr Clr Drug Dosing mL/min Estimated GFR (MDRD) ml/min Glucose (74-106) mg/dL Calcium (8.5-10.1) mg/dL Total Bilirubin (0.2-1.0) mg/dL AST (15-37) IU/L ALT (14-63) IU/L Alkaline Phosphatase (46-116) U/L Troponin I (0.000-0.056) ng/mL Total Protein (6.4-8.2) g/dL Albumin (3.4-5.0) g/dL Globulin (2.6-4.0) g/dL Albumin/Globulin Ratio (0.9-1.6) Lipase (73-393) U/L Urine Color Urine Appearance Urine pH (5.0-8.0) Ur Specific Savanna (1.001-1.035) Urine Protein (NEGATIVE) mg/dL Urine Glucose (UA) (NEGATIVE) mg/dL Urine Ketones (NEGATIVE) mg/dL Urine Occult Blood (NEGATIVE) Urine Nitrite (NEGATIVE) Urine Bilirubin (NEGATIVE) Urine Urobilinogen (<2.0) EU/dL Ur Leukocyte Esterase (NEGATIVE) Urine RBC (0-2/HPF) Urine WBC (0-5/HPF) Ur Epithelial Cells (NONE-FEW) Urine Bacteria (NEGATIVE) 03/12/20 03/12/20 03/12/20 Range/Units 13:48 13:48 13:50 WBC (4.0-11.0) K/uL RBC (4.30-5.90) M/uL Hgb (12.0-16.0) g/dL Hct (36.0-46.0) % MCV (80.0-98.0) fL MCH (27.0-32.0) pg MCHC (31.0-37.0) g/dL RDW Std Deviation (28.0-62.0) fl RDW Coeff of Bubba (11.0-15.0) % Plt Count (150-400) K/uL MPV (7.40-12.00) fL Neut % (Auto) (48.0-80.0) % Lymph % (Auto) (16.0-40.0) % Dyer % (Auto) (0.0-15.0) % Eos % (Auto) (0.0-7.0) % Baso % (Auto) (0.0-1.5) % Neut # (Auto) (1.4-5.7) K/uL Lymph # (Auto) (0.6-2.4) K/uL Dyer # (Auto) (0.0-0.8) K/uL Eos # (Auto) (0.0-0.7) K/uL Baso # (Auto) (0.0-0.1) K/uL Nucleated RBC % /100WBC Nucleated RBCs # K/uL INR APTT 22.3 (18.6-31.3) SEC Lactate (0.20-2.00) mmol/L Sodium 142 (136-145) mmol/L Potassium 3.1 L (3.5-5.1) mmol/L Chloride 104 (98-107) mmol/L Carbon Dioxide 28.3 (21.0-32.0) mmol/L BUN 12 (7.0-18.0) mg/dL Creatinine 1.1 H (0.6-1.0) mg/dL Est Cr Clr Drug Dosing 39.15 mL/min Estimated GFR (MDRD) 48.3 ml/min Glucose 88 (74-106) mg/dL Calcium 8.7 (8.5-10.1) mg/dL Total Bilirubin 0.8 (0.2-1.0) mg/dL AST 16 (15-37) IU/L ALT 32 (14-63) IU/L Alkaline Phosphatase 94 (46-116) U/L Troponin I < 0.050 (0.000-0.056) ng/mL Total Protein 6.7 (6.4-8.2) g/dL Albumin 3.8 (3.4-5.0) g/dL Globulin 2.9 (2.6-4.0) g/dL Albumin/Globulin Ratio 1.3 (0.9-1.6) Lipase 252 (73-393) U/L Urine Color YELLOW Urine Appearance CLEAR Urine pH 5.5 (5.0-8.0) Ur Specific Savanna 1.015 (1.001-1.035) Urine Protein NEGATIVE (NEGATIVE) mg/dL Urine Glucose (UA) NEGATIVE (NEGATIVE) mg/dL Urine Ketones NEGATIVE (NEGATIVE) mg/dL Urine Occult Blood TRACE-INTACT H (NEGATIVE) Urine Nitrite POSITIVE H (NEGATIVE) Urine Bilirubin NEGATIVE (NEGATIVE) Urine Urobilinogen 0.2 (<2.0) EU/dL Ur Leukocyte Esterase NEGATIVE (NEGATIVE) Urine RBC 1-2 (0-2/HPF) Urine WBC 1-2 (0-5/HPF) Ur Epithelial Cells RARE (NONE-FEW) Urine Bacteria FEW (NEGATIVE) Meds: Medications Generic Name Dose Route Start Last Admin Trade Name Freq PRN Reason Stop Dose Admin Sodium Chloride 10 ml 03/12/20 13:42 Saline Flush FLUSH ASDIRECTED PRN Keep Vein Open Sodium Chloride 2.5 ml 03/12/20 13:42 Saline Flush FLUSH ASDIRECTED PRN Keep Vein Open Discontinued Medications Generic Name Dose Route Start Last Admin Trade Name Freq PRN Reason Stop Dose Admin Iopamidol 100 ml 03/12/20 16:38 03/12/20 16:38 Isovue Multipack-370 (76%) IVPUSH 03/12/20 16:39 100 ml ONETIME ONE Administration Potassium Chloride 40 meq 03/12/20 16:25 03/12/20 17:00 Potassium Chloride PO 03/12/20 16:26 40 meq ONETIME ONE Administration - Re-Assessments/Exams Free Text/Narrative Re-Assessment/Exam: 03/12/20 18:16 After treatments and observation in the ER, patient improved clinically and is currently stable for discharge. I performed a repeat exam and did not appreciate new abnormal findings. Patient exhibits normal vital signs and has a normal gait. I advised the patient to return to the ER for reevaluation if symptoms worsened, including fever, worsening pain, or any other worrisome symptoms. I instructed the patient to follow up with their PCP within 2-3 days. MEDICAL DECISION MAKING: I reviewed the patients past medical records, lab and radiographic findings. I discussed the case with the patient. My differential diagnosis included: Patient's hemoglobin is stable despite history of rectal bleeding, on my digital rectal exam she had no noticeable blood on my digit, she was however Hemoccult positive, her hemoglobin is stable for discharge, she is not tachycardic, I do not suspect hemorrhagic shock warranting blood transfusion. She is well-appearing in no distress. She denies abdominal discomfort or pain. CT demonstrated diverticulosis with possible colitis, I will give her Cipro and Flagyl for concern for colitis. I gave her strict return precautions for worsening pain, worsening rectal bleeding, dizziness, shortness of breath, lightheadedness. Departure - Departure Time of Disposition: 18:18 Disposition: Home, Self-Care 01 Condition: Good Clinical Impression: Diverticulosis, Rectal bleeding - Discharge Information *PRESCRIPTION DRUG MONITORING PROGRAM REVIEWED*: Not Applicable *COPY OF PRESCRIPTION DRUG MONITORING REPORT IN PATIENT JOHN: Not Applicable Prescriptions: Ciprofloxacin [Ciprofloxacin HCl] 500 mg PO BID #20 tab metroNIDAZOLE [Flagyl] 500 mg PO Q8H #30 tab Instructions: Rectal Bleeding, Diverticulosis Referrals: Jonnathan Kirkland MD [Primary Care Provider] - 3 Days Forms: ED Department Discharge Additional Instructions: The following information is given to patients seen in the emergency department who are being discharged to home. This information is to outline your options for follow-up care. We provide all patients seen in our emergency department with a follow-up referral. The need for follow-up, as well as the timing and circumstances, are variable depending upon the specifics of your emergency department visit. If you don't have a primary care physician on staff, we will provide you with a referral. We always advise you to contact your personal physician following an emergency department visit to inform them of the circumstance of the visit and for follow-up with them and/or the need for any referrals to a consulting specialist. The emergency department will also refer you to a specialist when appropriate. This referral assures that you have the opportunity for follow-up care with a specialist. All of these measure are taken in an effort to provide you with optimal care, which includes your follow-up. Under all circumstances we always encourage you to contact your private physi elena who remains a resource for coordinating your care. When calling for follow- up care, please make the office aware that this follow-up is from your recent emergency room visit. If for any reason you are refused follow-up, please contact the [facility] Emergency Department at and asked to speak to the emergency department charge nurse. If you do not have a primary care doctor, please follow up with the clinics below within 3-5 days. [facility] - Primary Care [address] [place] [id number] [address] [address] Sepsis Event Note (ED) - Evaluation Sepsis Screening Result: No Definite Risk - Focused Exam Vital Signs: Vital Signs Temp Pulse Resp BP Pulse Ox 03/12/20 13:39 97.8 F 86 17 145/96 H 98 - My Orders Last 24 Hours: My Active Orders 03/12/20 13:42 Sodium Chloride 0.9% [Saline Flush] 10 ml FLUSH ASDIRECTED PRN Sodium Chloride 0.9% [Saline Flush] 2.5 ml FLUSH ASDIRECTED PRN Saline Lock Insert [OM.PC] Stat 03/12/20 13:43 EKG Documentation Completion [RC] STAT 03/12/20 13:48 PROCALCITONIN [REF] Stat - Assessment/Plan Last 24 Hours: My Active Orders 07/25/20 13:42 Sodium Chloride 0.9% [Saline Flush] 10 ml FLUSH ASDIRECTED PRN Sodium Chloride 0.9% [Saline Flush] 2.5 ml FLUSH ASDIRECTED PRN Saline Lock Insert [OM.PC] Stat 03/12/20 13:43 EKG Documentation Completion [RC] STAT 03/12/20 13:48 PROCALCITONIN [REF] Stat
[2020-03-12] MEDS ORDERED: Potassium Chloride 10% 20 MEQ/15 ML Soln 30 ML UD Cup PO ONE (16:25)
[2020-03-12] MEDS ORDERED: Iopamidol 755 MG/ML 200 ML Multipack Bottle IVPUSH ONE (16:38)
--- NOTE | 2020-03-12 17:00 | CT ---
CT abdomen and pelvis Technique: Multiple axial sections were obtained from above the dome of the diaphragm inferiorly through the pubic symphysis. Intravenous contrast was utilized. No oral contrast has been given. Comparison: No previous study. Findings: Visualized lung bases show nothing acute. Liver contains no focal abnormality. Slight fatty infiltration is seen next to the ligamentum teres fissure which is believed to be normal. Soft tissue nodule is noted next to the spleen believed to represent accessory splenic tissue. Kidneys show symmetric contrast enhancement without hydronephrosis. Surgical clips are seen from prior cholecystectomy. Aorta shows no aneurysm. No retroperitoneal adenopathy or mesenteric abnormalities are seen. Numerous diverticuli are seen around the sigmoid and descending colon. Anterior lower abdominal wall hernia seen containing fat. No additional abdominal wall abnormality is appreciated. Bone window settings were reviewed which shows diffuse degenerative change within the lumbar spine. No acute osseous finding is appreciated. Impression: 1. Bowel wall thickening within the colon as described above most likely due to a nonspecific colitis. 2. Colonic diverticuli without findings of diverticulitis. Other nonacute findings are seen as described above. Diagnostic code #3 This report was dictated in MDT
[2020-03-12 18:34] VITALS: BP 148/98; PULSE 106
== END 2020-03-12 18:35 | disposition home or self-care (01) ==
LOC: MW.ED 13:25
DX: K57.90 Diverticulosis of intestine, part unspecified, without perforation or abscess without bleeding (principal); K62.5 Hemorrhage of anus and rectum; M19.90 Unspecified osteoarthritis, unspecified site; I10 Essential (primary) hypertension; Z79.82 Long term (current) use of aspirin; Z79.899 Other long term (current) drug therapy; Z88.5 Allergy status to narcotic agent
CPT/HCPCS: 36415; 74177; 80053; 81001; 83605; 83690; 84145; 84484; 85025; 85610; 85730; 93005; 99284; A9270; Q9967; 99283

== ENCOUNTER 2021-02-10 13:48 | Observation (INO) | payer MEDICARE, BC ==
[~2021-02-10 13:48] MED LIST: Apixaban 2.5 MG Tab PO SCH
[2021-02-10] MEDS ORDERED: Sodium Chloride 0.9% 1,000 ML IV ONE ×2 (14:17→14:37)
[2021-02-10] MEDS ORDERED: Diltiazem 25 MG/5 ML SDV IVPUSH ONE (14:43)
[2021-02-10] MEDS ORDERED: Diltiazem 120 MG Cap.CD PO ONE ×2 (14:47→15:21)
[2021-02-10 15:09] LABS: CARBON DIOXIDE,CO2 21.2 mmol/L (21.0-32.0); POTASSIUM,K 3.3 mmol/L (3.5-5.1)
--- NOTE | 2021-02-10 15:37 | PCM.EKG ---
#1 Interpretation EKG Date: 02/10/21 Time: 14:37 Rhythm: A-Fib Rate (Beats/Min): 143 ST-T: Normal
--- NOTE | 2021-02-10 15:43 | CR ---
INDICATION: Pain, shortness of breath. TECHNIQUE: Chest 1 view. COMPARISON: Chest radiograph 12/17/2015. FINDINGS: New small left pleural effusion. Consolidation in the left lung base may represent atelectasis or infiltrate. No pneumothorax. Normal heart size and pulmonary vascularity. Surgical clips right upper quadrant. The bones are unremarkable. IMPRESSION: 1. New small left pleural effusion. 2. Consolidation in the left lung base may represent atelectasis or infiltrate. Dictated by Kavita Arredondo MD @ 02/10/2021 3:41:[address] Kavita Arredondo @ Feb 10 2021 3:41PM
--- NOTE | 2021-02-10 16:50 | CT ---
Indication: Dizziness Technique: Nonenhanced axial CT imaging through the head. Sagittal and coronal reconstructions are provided. Comparison: CT and allowing contrast 04/18/2019 Findings: There is no intracranial hemorrhage, edema, or mass effect. Otoole-white matter differentiation is preserved. Old lacunar infarct is again noted in the right thalamus. There is stable parenchymal calcification in the inferior lateral aspect of the right cerebellar hemisphere. The ventricles are normal in size. The basal cisterns are patent. The calvarium is intact. The visualized paranasal sinuses and mastoid air cells are aerated. Impression: 1. No acute intracranial process. 2. Stable chronic findings, as above. Please note that all CT scans at this facility use dose modulation, iterative reconstruction, and/or weight-based dosing when appropriate to reduce radiation dose to as low as reasonably achievable. Dictated by Rafia Cool MD @ 02/10/2021 4:48:[address] Rafia Cool @ Feb 10 2021 4:48PM
[2021-02-10] MEDS ORDERED: Diltiazem IR 60 MG Tab ONE (16:57)
[2021-02-10] MEDS ORDERED: Diltiazem IR 60 MG Tab PO ONE (17:02)
--- NOTE | 2021-02-10 17:22 | CT ---
INDICATION: Dyspnea, tachycardia, history of cancer TECHNIQUE: CT chest without contrast. COMPARISON: Chest radiograph same date FINDINGS: Cardiovascular structures: Heart size is normal. Coronary artery calcifications. Thoracic aorta and main pulmonary artery are normal in caliber. Mediastinum and luz: No sign of mass or adenopathy. Lungs: Several sub centimeter pulmonary nodules in the left lung. Pleura and pericardium: Small to moderate simple left pleural effusion. Chest wall and axilla: No mass or adenopathy. Upper abdomen: Status post cholecystectomy. Thickening of both adrenal glands. Bones: No significant findings. IMPRESSION: Small to moderate sized left simple pleural effusion. Several sub centimeter pulmonary nodules in the left lung. Coronary artery disease. Bilateral adrenal gland hyperplasia. Status post cholecystectomy. Please note that all CT scans at this facility use dose modulation, iterative reconstruction, and/or weight-based dosing when appropriate to reduce radiation dose to as low as reasonably achievable. Dictated by Vee Johnson MD @ 02/10/2021 5:20:[address] Vee Johnson @ Feb 10 2021 5:20PM
--- NOTE | 2021-02-10 17:52 | PCM.EKG ---
#1 Interpretation EKG Date: 02/10/21 Time: 17:09 Rhythm: A-Fib Rate (Beats/Min): 96 ST-T: Normal
--- NOTE | 2021-02-10 18:16 | EDM.PDOC ---
ED HPI GENERAL MEDICAL PROBLEM - General Chief Complaint: General Stated Complaint: WEAKNESS, VOMITING Time Seen by Provider: 02/10/21 13:49 Source of Information: Reports: Patient History Limitations: Reports: No Limitations - History of Present Illness INITIAL COMMENTS - FREE TEXT/NARRATIVE: HISTORY AND PHYSICAL: History of present illness: Patient is a 75-year-old female with multiple myeloma who is currently on chemotherapy, a fib with prior RVR, and hypertension, who presents to the emergency department secondary to a 1 week history of intermittent non bilious/non bloody vomiting (last vomited 4 days ago) and non bloody / watery diarrhea that has been constant and too numerous to count episodes daily. Patient reports that 5 days ago she vomited and then had diarrhea which has persisted throughout the week. Patient reports that she is able to eat and drink but has felt she has had a reduced appetite. Patient states that she awoke this morning and had a syncopal episode and felt dehydrated and when she woke up was laying on the the ground. Patient denies any pain or injuries due to the fall at this time. Patient reports that she gets monthly chemo infusions and that she has not had an infusion yet this month and was scheduled to do so in a couple of days but does take a pill daily. Patient states that she has been short of breath throughout this last week and she says she is particularly short of breath when she is ambulating and this causes her to feel weak. Patient denies fever, chills, chest pain. Denies headache, neck stiff ness, change in vision. Denies abdominal pain, or dysuria. Has not noted any blood in urine or stool. Patient has been eating and drinking appropriately. Review of systems: As per history of present illness and below otherwise all systems reviewed and negative. Past medical history: As per history of present illness and as reviewed below otherwise noncontributory. Surgical history: As per history of present illness and as reviewed below otherwise noncontributory. Social history: See social history for further information Family history: As per history of present illness and as reviewed below otherwise noncontributory. Physical exam: General: Patient is alert, oriented, and in no acute distress. Patient laying comfortably on exam table. Patient is noted to be tachycardic in the 150s with a blood pressure of 96/58. Patient O2 94%. Patient noted to be dyspneic when ambulating from wheelchair to bed which improves when laying in the bed. HEENT: Atraumatic, normocephalic, pupils equal and reactive bilaterally, negative for conjunctival pallor or scleral icterus, mucous membranes dry, TMs normal bilaterally, throat clear, neck supple, nontender, trachea midline. No drooling or trismus noted. No meningeal signs. No hot potato voice noted. Lungs: Clear to auscultation, breath sounds equal bilaterally, chest nontender. Patient speaking clearly without breathlessness, no wheezing or stridor, no accessory muscle use or respiratory distress. Patient is dyspneic when ambulating from wheelchair to the bed and does have an increased respiratory rate when doing this which resolves once moved to the bed. Heart: S1S2, tachycardic in the 150s without overt murmur Abdomen: Soft, nondistended, nontender. Negative for masses or hepatosplenomegaly. Negative for costovertebral tenderness. Pelvis: Stable nontender. Genitourinary: Deferred. Rectal: Deferred. Skin: Intact, warm, dry. No lesions or rashes noted. Extremities: No obvious deformity the complete spine. No step-offs, crepitus, or point tenderness to palpation of the complete spine. Otherwise, atraumatic, negative for cords or calf pain. Neurovascular unremarkable. Neuro: Awake, alert, oriented. Cranial nerves II through XII unremarkable. Cerebellum unremarkable. Motor and sensory unremarkable throughout. Exam nonfocal. Notes: Patient is a 75-year-old female, with multiple myeloma who is currently on chemotherapy and prior afib with RVR, who presents to the emergency department secondary to a 1 week history of non bloody diarrhea and intermittent diarrhea with syncope episode today. Upon arrival to the ED, she is noted to be tachycardic in the 150s with a blood pressure of 96/58 and O2 on RA 94%. Patient is noted to be mildly short of breath when ambulating from wheelchair to the exam table but alert and oriented and in no acute distress, dyspnea resolves with laying on exam table. Will initiate normal saline bolu. Will obtain cardiac evaluation as well as head CT scan due to syncope with uncertain head injury. See Dr. Crocker's dictation for specific EKG findings, otherwise patient noted to have A. fib with a rapid ventricular rate of 143, otherwise no ST elevation or signs of ischemia. Administered 10 mg of diltiazem IV and noted that the patient's heart rate began to decrease into the low 100s to upper 90s. Patient was provided with 60 mg diltiazem p.o. about 20 minutes later. Patient's heart rate remains in the 90s. Reevaluation of blood pressure improved to 100s/60s. Patient remains otherwise vitally stable. Patient's CBC has mild derangements unremarkable. Patient is noted to have a mildly elevated D-dimer of 0.54. Patient's CMP shows a creatinine of increase 1.8 (1.5 on 02/09/21 and 1.1 on 01/12/21) with an estimated GFR of 27.3 and BNP elevation of 295. Stool studies are negative for C. difficile and the remainder studies stool pending. Troponin negative. Patient's chest x-ray shows new small left pleural effusion. Consolidation in left lung base may represent atelectasis or infiltrate. No pneumothorax. Normal heart size and pulmonary vascularity. Surgical clips right upper quadrant. The bones are unremarkable. Patient's head CT showed no acute intracranial process. Stable chronic findings. Unable to obtain Ang CT chest due to low GFR. I did call and speak to the radiologist Dr. Vee Johnson who would recommend not giving IV contrast at this time and to consider non contrast CT in order to better visualize pleural effusion and consider hydration and Ang CT after repeat GFR. Patient's chest CT w/o contrast showed small to moderate size left simple pleur al effusion. Several subcentimeter pulmonary nodules in the left lung. Coronary artery disease. Bilateral adrenal gland hyperplasia. Status post cholecystectomy. Upon reexamination the patient is noted to have a heart rate in the 90s with blood pressures in the 120s over 80s and O2 94%. Patient is feeling better and feels less fatigued. Patient has not had any more runs of RVR while being in the emergency department. I did call and speak to the hospitalist in tube conversion technician, Dr. Chan, and thoroughly discussed the patient's case. Will admit to observation on telemetry to Dr. Pisano. Patient discharged to the floor under care of Dr. Chan in stable condition. Diagnostics: CBC, CMP, UA, EKG, D-dimer, chest CT w/o cont, head CT, chest x-ray, stool studies Therapeutics: Normal saline, diltiazem Impression: Atrial fibrillation with RVR Dehydration Diarrhea, unspecified Syncope, unspecified Exertional dyspnea Pleural effusion, mild-moderate, left Immunocompromised Plan: Admit to Dr. Pisano for observation on telemetry Definitive disposition and diagnosis as appropriate pending reevaluation and review of above. - Related Data Allergies Allergy/AdvReac Type Severity Reaction Status Date / Time cantaloupe Allergy Other Verified 02/10/21 14:28 codeine Allergy Difficulty Verified 02/10/21 14:28 Breathing Home Meds: Home Meds Potassium Chloride [Klor-Con 10] 2 tab PO ACBRK 01/01/14 [History] Aspirin 1 tab PO DAILY 12/17/15 [History] Calcium Carbonate/Vitamin D3 [Calcium 600 + Vit D Softgel] 1 cap PO DAILY 12/17/15 [History] Cholecalciferol (Vitamin D3) [Vitamin D3] 1 tab PO DAILY 12/17/15 [History] Multivitamin [Multivitamins] 1 tab PO DAILY 12/17/15 [History] Losartan [Cozaar] 100 mg PO DAILY 12/14/17 [History] Lenalidomide [Revlimid] 10 mg PO DAILY 03/12/20 [History] ALPRAZolam [Alprazolam] 0.25 mg PO ASDIRECTED 02/10/21 [History] Diltiazem HCl [Diltiazem 24Hr Cd] 120 mg PO DAILY 02/10/21 [History] Past Medical History HEENT History: Reports: Impaired Vision Cardiovascular History: Reports: Hypertension Respiratory History: Reports: None Gastrointestinal History: Reports: Diverticulosis Other Gastrointestinal History: heartburn Genitourinary History: Reports: None DIRECTOR IMAGING History: Reports: Musculoskeletal History: Reports: Arthritis Neurological History: Reports: Migraines Psychiatric History: Reports: None Endocrine/Metabolic History: Reports: None Hematologic History: Reports: None Immunologic History: Reports: None Oncologic (Cancer) History: Reports: Other (See Below) 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 Dermatologic History: Reports: Other (See Below) Other Dermatologic History: multiple Myeloma - Infectious Disease History Infectious Disease History: Reports: Chicken Pox - Past Surgical History Head Surgeries/Procedures: Reports: None HEENT Surgical History: Reports: None Cardiovascular Surgical History: Reports: None GI Surgical History: Reports: Cholecystectomy, Small Bowel, Other (See Below) Other GI Surgeries/Procedures: ruptured intestines, dumping syndrome Female Surgical History: Reports: Breast Biopsy, Hysterectomy Endocrine Surgical History: Reports: None Neurological Surgical History: Reports: None Musculoskeletal Surgical History: Reports: None Oncologic Surgical History: Reports: None Dermatological Surgical History: Reports: None Social & Family History - Family History Family Medical History: No Pertinent Family History HEENT: Reports: None Cardiac: Reports: None - Tobacco Use Tobacco Use Status *Q: Never Tobacco User - Caffeine Use Caffeine Use: Reports: None - Recreational Drug Use Recreational Drug Use: No ED ROS GENERAL - Review of Systems Review Of Systems: Comprehensive ROS is negative, except as noted in HPI. ED EXAM, GENERAL - Physical Exam Exam: See Below (see dictation) Course - Vital Signs Last Recorded V/S: Last Vital Signs Temp 97.5 F 02/10/21 14:17 Pulse 98 02/10/21 18:00 Resp 17 02/10/21 18:00 BP 121/82 02/10/21 18:00 Pulse Ox 94 L 02/10/21 18:00 - Orders/Labs/Meds Orders: Active Orders 24 hr Category Date Time Status EKG Documentation Completion [RC] STAT Care 02/10/21 14:31 Active EKG Documentation Completion [RC] STAT Care 02/10/21 17:09 Active OVA & PARASITES BY IMMUNOASSAY [MREF] Stat Lab 02/10/21 16:50 Received STOOL CULTURE/SHIGA TOXIN [MREF] Stat Lab 02/10/21 16:50 Received Sodium Chloride 0.9% [Normal Saline] 1,000 ml Med 02/10/21 14:37 Active IV STAT Medication Orders Acetaminophen (Acetaminophen 325 Mg Tab) 650 mg PO Q4H PRN PRN Reason: Pain (Mild 1-3)/fever Albuterol/Ipratropium (Albuterol/Ipratropium 3.0-0.5 Mg/3 Ml Neb Soln) 3 ml NEB Q4HRRT PRN PRN Reason: Shortness Of Breath/wheezing Alprazolam (Alprazolam 0.25 Mg Tab) 0.25 mg PO ASDIRECTED MARISA Aspirin (Aspirin 81 Mg Tab.Chew) 81 mg PO DAILY MARISA Cholecalciferol (Cholecalciferol (Vitamin D3) 25 Mcg Tab) 25 mcg PO DAILY MARISA Diltiazem HCl (Diltiazem 180 Mg Cap.Cd) 120 mg PO DAILY MARISA Heparin Sodium (Porcine) (Heparin Sodium 5,000 Units/Ml Vial) 5,000 units SUBCUT Q8H MARISA Sodium Chloride (Normal Saline) 1,000 mls @ 90 mls/hr IV STAT ONE Stop: 02/11/21 01:43 Last Infusion: 02/10/21 18:58 Dose: 90 mls/hr Documented by: Infusion: 02/10/21 17:00 Dose: 0 mls/hr Documented by: Admin: 02/10/21 14:51 Dose: 90 mls/hr Documented by: MARY Lactated Ringer's (Ringers, Lactated) 1,000 mls @ 125 mls/hr IV ASDIRECTED MARISA Pantoprazole Sodium 40 mg/ (Sodium Chloride) 10 mls @ 300 mls/hr IV DAILY MARISA Levofloxacin/Dextrose 750 mg/ (Premix) 150 mls @ 100 mls/hr IV Q24H [facility] Non-Formulary Medication (Calcium Carbonate/Vitamin D3 [Calcium 600-Vit D3 500 Softgel]) 1 cap PO DAILY MARISA Non-Formulary Medication (Multivitamin [Multivitamins]) 1 tab PO DAILY [facility]ISA Ondansetron HCl (Ondansetron 4 Mg/2 Ml Sdv) 4 mg IVPUSH Q4H PRN PRN Reason: Nausea/Vomiting Labs: Laboratory Tests 02/10/21 02/10/21 02/10/21 Range/Units 14:30 14:30 14:30 WBC 8.59 (4.0-11.0) K/uL RBC 4.58 (4.30-5.90) M/uL Hgb 15.3 (12.0-16.0) g/dL Hct 43.8 (36.0-46.0) % MCV 95.6 (80.0-98.0) fL MCH 33.4 H (27.0-32.0) pg MCHC 34.9 (31.0-37.0) g/dL RDW Std Deviation 48.1 (28.0-62.0) fl RDW Coeff of Bubba 14 (11.0-15.0) % Plt Count 234 (150-400) K/uL MPV 11.10 (7.40-12.00) fL Neut % (Auto) 81.7 H (48.0-80.0) % Lymph % (Auto) 10.1 L (16.0-40.0) % Baca % (Auto) 7.3 (0.0-15.0) % Eos % (Auto) 0.8 (0.0-7.0) % Baso % (Auto) 0.1 (0.0-1.5) % Neut # (Auto) 7.0 H (1.4-5.7) K/uL Lymph # (Auto) 0.9 (0.6-2.4) K/uL Baca # (Auto) 0.6 (0.0-0.8) K/uL Eos # (Auto) 0.1 (0.0-0.7) K/uL Baso # (Auto) 0.0 (0.0-0.1) K/uL D-Dimer, Quantitative (0.0-0.50) mg/L FEU Sodium 141 (136-145) mmol/L Potassium 3.3 L (3.5-5.1) mmol/L Chloride 108 H (98-107) mmol/L Carbon Dioxide 21.2 (21.0-32.0) mmol/L BUN 26 H (7.0-18.0) mg/dL Creatinine 1.8 H (0.6-1.0) mg/dL Est Cr Clr Drug Dosing 22.49 mL/min Estimated GFR (MDRD) 27.3 ml/min Glucose 172 H (74-106) mg/dL Calcium 8.7 (8.5-10.1) mg/dL Magnesium (1.8-2.4) mg/dL Total Bilirubin 1.0 (0.2-1.0) mg/dL AST 26 (15-37) IU/L ALT 31 (14-63) IU/L Alkaline Phosphatase 71 (46-116) U/L Troponin I < 0.050 (0.000-0.056) ng/mL B-Natriuretic Peptide (<100) PG/ML Total Protein 6.5 (6.4-8.2) g/dL Albumin 3.4 (3.4-5.0) g/dL Globulin 3.1 (2.6-4.0) g/dL Albumin/Globulin Ratio 1.1 (0.9-1.6) Lipase 125 (73-393) U/L Urine Color Urine Appearance Urine pH (5.0-8.0) Ur Specific Trent (1.001-1.035) Urine Protein (NEGATIVE) mg/dL Urine Glucose (UA) (NEGATIVE) mg/dL Urine Ketones (NEGATIVE) mg/dL Urine Occult Blood (NEGATIVE) Urine Nitrite (NEGATIVE) Urine Bilirubin (NEGATIVE) Urine Urobilinogen (<2.0) EU/dL Ur Leukocyte Esterase (NEGATIVE) U Hyaline Cast (Auto) (0-2/LPF) Urine RBC (0-2/HPF) Urine WBC (0-5/HPF) Ur Epithelial Cells (NONE-FEW) Urine Bacteria (NEGATIVE) Urine Mucus (NONE-MOD) 02/10/21 02/10/21 02/10/21 Range/Units 14:30 14:30 14:30 WBC (4.0-11.0) K/uL RBC (4.30-5.90) M/uL Hgb (12.0-16.0) g/dL Hct (36.0-46.0) % MCV (80.0-98.0) fL MCH (27.0-32.0) pg MCHC (31.0-37.0) g/dL RDW Std Deviation (28.0-62.0) fl RDW Coeff of Bubba (11.0-15.0) % Plt Count (150-400) K/uL MPV (7.40-12.00) fL Neut % (Auto) (48.0-80.0) % Lymph % (Auto) (16.0-40.0) % Baca % (Auto) (0.0-15.0) % Eos % (Auto) (0.0-7.0) % Baso % (Auto) (0.0-1.5) % Neut # (Auto) (1.4-5.7) K/uL Lymph # (Auto) (0.6-2.4) K/uL Baca # (Auto) (0.0-0.8) K/uL Eos # (Auto) (0.0-0.7) K/uL Baso # (Auto) (0.0-0.1) K/uL D-Dimer, Quantitative 0.54 H (0.0-0.50) mg/L FEU Sodium (136-145) mmol/L Potassium (3.5-5.1) mmol/L Chloride (98-107) mmol/L Carbon Dioxide (21.0-32.0) mmol/L BUN (7.0-18.0) mg/dL Creatinine (0.6-1.0) mg/dL Est Cr Clr Drug Dosing mL/min Estimated GFR (MDRD) ml/min Glucose (74-106) mg/dL Calcium (8.5-10.1) mg/dL Magnesium 2.1 (1.8-2.4) mg/dL Total Bilirubin (0.2-1.0) mg/dL AST (15-37) IU/L ALT (14-63) IU/L Alkaline Phosphatase (46-116) U/L Troponin I (0.000-0.056) ng/mL B-Natriuretic Peptide 295 H (<100) PG/ML Total Protein (6.4-8.2) g/dL Albumin (3.4-5.0) g/dL Globulin (2.6-4.0) g/dL Albumin/Globulin Ratio (0.9-1.6) Lipase (73-393) U/L Urine Color Urine Appearance Urine pH (5.0-8.0) Ur Specific Trent (1.001-1.035) Urine Protein (NEGATIVE) mg/dL Urine Glucose (UA) (NEGATIVE) mg/dL Urine Ketones (NEGATIVE) mg/dL Urine Occult Blood (NEGATIVE) Urine Nitrite (NEGATIVE) Urine Bilirubin (NEGATIVE) Urine Urobilinogen (<2.0) EU/dL Ur Leukocyte Esterase (NEGATIVE) U Hyaline Cast (Auto) (0-2/LPF) Urine RBC (0-2/HPF) Urine WBC (0-5/HPF) Ur Epithelial Cells (NONE-FEW) Urine Bacteria (NEGATIVE) Urine Mucus (NONE-MOD) 02/10/21 Range/Units 16:50 WBC (4.0-11.0) K/uL RBC (4.30-5.90) M/uL Hgb (12.0-16.0) g/dL Hct (36.0-46.0) % MCV (80.0-98.0) fL MCH (27.0-32.0) pg MCHC (31.0-37.0) g/dL RDW Std Deviation (28.0-62.0) fl RDW Coeff of Bubba (11.0-15.0) % Plt Count (150-400) K/uL MPV (7.40-12.00) fL Neut % (Auto) (48.0-80.0) % Lymph % (Auto) (16.0-40.0) % Baca % (Auto) (0.0-15.0) % Eos % (Auto) (0.0-7.0) % Baso % (Auto) (0.0-1.5) % Neut # (Auto) (1.4-5.7) K/uL Lymph # (Auto) (0.6-2.4) K/uL Baca # (Auto) (0.0-0.8) K/uL Eos # (Auto) (0.0-0.7) K/uL Baso # (Auto) (0.0-0.1) K/uL D-Dimer, Quantitative (0.0-0.50) mg/L FEU Sodium (136-145) mmol/L Potassium (3.5-5.1) mmol/L Chloride (98-107) mmol/L Carbon Dioxide (21.0-32.0) mmol/L BUN (7.0-18.0) mg/dL Creatinine (0.6-1.0) mg/dL Est Cr Clr Drug Dosing mL/min Estimated GFR (MDRD) ml/min Glucose (74-106) mg/dL Calcium (8.5-10.1) mg/dL Magnesium (1.8-2.4) mg/dL Total Bilirubin (0.2-1.0) mg/dL AST (15-37) IU/L ALT (14-63) IU/L Alkaline Phosphatase (46-116) U/L Troponin I (0.000-0.056) ng/mL B-Natriuretic Peptide (<100) PG/ML Total Protein (6.4-8.2) g/dL Albumin (3.4-5.0) g/dL Globulin (2.6-4.0) g/dL Albumin/Globulin Ratio (0.9-1.6) Lipase (73-393) U/L Urine Color YELLOW Urine Appearance HAZY Urine pH 6.0 (5.0-8.0) Ur Specific Trent 1.025 (1.001-1.035) Urine Protein TRACE H (NEGATIVE) mg/dL Urine Glucose (UA) NEGATIVE (NEGATIVE) mg/dL Urine Ketones NEGATIVE (NEGATIVE) mg/dL Urine Occult Blood TRACE-LYSED H (NEGATIVE) Urine Nitrite NEGATIVE (NEGATIVE) Urine Bilirubin NEGATIVE (NEGATIVE) Urine Urobilinogen 0.2 (<2.0) EU/dL Ur Leukocyte Esterase NEGATIVE (NEGATIVE) U Hyaline Cast (Auto) 3-6 (0-2/LPF) Urine RBC 0-3 (0-2/HPF) Urine WBC 0-2 (0-5/HPF) Ur Epithelial Cells OCCASIONAL (NONE-FEW) Urine Bacteria FEW (NEGATIVE) Urine Mucus LIGHT (NONE-MOD) Meds: Medications Generic Name Dose Route Start Last Admin Trade Name Freq PRN Reason Stop Dose Admin Acetaminophen 650 mg 02/10/21 19:06 Acetaminophen 325 Mg Tab PO Q4H PRN Pain (Mild 1-3)/fever Albuterol/Ipratropium 3 ml 02/10/21 19:06 Albuterol/Ipratropium 3.0-0.5 Mg/3 Ml Neb Soln NEB Q4HRRT PRN Shortness Of Breath/wheezing Alprazolam 0.25 mg 02/10/21 19:15 Alprazolam 0.25 Mg Tab PO ASDIRECTED [facility] Aspirin 81 mg 02/11/21 09:00 Aspirin 81 Mg Tab.Chew PO DAILY MARISA Cholecalciferol 25 mcg 02/11/21 09:00 Cholecalciferol (Vitamin D3) 25 Mcg Tab PO DAILY MARISA Diltiazem HCl 120 mg 02/11/21 09:00 Diltiazem 180 Mg Cap.Cd PO DAILY MARISA Heparin Sodium (Porcine) 5,000 units 02/10/21 19:15 Heparin Sodium 5,000 Units/Ml Vial SUBCUT Q8H MARISA Sodium Chloride 1,000 mls @ 90 mls/hr 02/10/21 14:37 02/10/21 18:58 Normal Saline IV 02/11/21 01:43 90 mls/hr STAT ONE Infusion Lactated Ringer's 1,000 mls @ 125 mls/hr 02/10/21 19:15 Ringers, Lactated IV ASDIRECTED [facility] Pantoprazole Sodium 40 mg/ 10 mls @ 300 mls/hr 02/11/21 09:00 Sodium Chloride IV DAILY [facility] Levofloxacin/Dextrose 750 mg/ 150 mls @ 100 mls/hr 02/10/21 19:15 Premix IV Q24H [facility] Non-Formulary Medication 1 cap 02/11/21 09:00 Calcium Carbonate/Vitamin D3 [Calcium 600-Vit D3 500 Softgel] PO DAILY [facility] Non-Formulary Medication 1 tab 02/11/21 09:00 Multivitamin [Multivitamins] PO DAILY [facility] Ondansetron HCl 4 mg 02/10/21 19:06 Ondansetron 4 Mg/2 Ml Sdv IVPUSH Q4H PRN Nausea/Vomiting Discontinued Medications Generic Name Dose Route Start Last Admin Trade Name Freq PRN Reason Stop Dose Admin Diltiazem HCl 10 mg 02/10/21 14:43 02/10/21 14:51 Diltiazem 25 Mg/5 Ml Sdv IVPUSH 02/10/21 14:44 10 mg ONETIME ONE Administration Diltiazem HCl 120 mg 02/10/21 14:47 Diltiazem 120 Mg Cap.Cd PO 02/10/21 14:48 ONETIME ONE Diltiazem HCl 60 mg 02/10/21 15:21 02/10/21 17:06 Diltiazem 120 Mg Cap.Cd PO 02/10/21 15:22 Not Given ONETIME ONE Diltiazem HCl Confirm 02/10/21 16:57 02/10/21 17:06 Diltiazem Ir 60 Mg Tab Administered 02/10/21 16:58 Not Given Dose 60 mg .ROUTE .STK-MED ONE Diltiazem HCl 60 mg 02/10/21 17:02 02/10/21 17:06 Diltiazem Ir 60 Mg Tab PO 02/10/21 17:03 60 mg ONETIME ONE Administration Sodium Chloride 1,000 mls @ 999 mls/hr 02/10/21 14:17 02/10/21 14:27 Normal Saline IV 02/10/21 15:17 999 mls/hr BOLUS ONE Administration Potassium Chloride 40 meq 02/10/21 19:16 Potassium Chloride 20 Meq Tab.Er PO 02/10/21 19:17 ONETIME ONE Departure - Departure Time of Disposition: 18:51 Disposition: Refer to Observation Clinical Impression: Atrial fibrillation with RVR, Dehydration, Pleural effusion Diarrhea Qualifiers: Diarrhea type: unspecified type Qualified Code(s): R19.7 - Diarrhea, unspecified Syncope Qualifiers: Syncope type: unspecified Qualified Code(s): R55 - Syncope and collapse Dyspnea Qualifiers: Dyspnea type: dyspnea on exertion Qualified Code(s): R06.00 - Dyspnea, unspecified - Discharge Information Sepsis Event Note (ED) - Evaluation Sepsis Screening Result: No Definite Risk - Focused Exam Vital Signs: Vital Signs Temp Pulse Resp BP Pulse Ox 02/10/21 18:00 98 17 121/82 94 L 02/10/21 17:28 103 H 17 103/69 94 L 02/10/21 17:08 116 H 17 115/67 97 02/10/21 16:28 104 H 16 102/71 97 02/10/21 15:22 100 17 97/65 99 02/10/21 15:10 90 97 02/10/21 15:05 84 98 02/10/21 14:59 109 H 17 98/51 L 98 02/10/21 14:30 148 H 18 82/60 L 96 02/10/21 14:25 96 17 94/69 92 L 02/10/21 14:17 97.5 F 95 20 74/51 L 96 - My Orders Last 24 Hours: My Active Orders 02/10/21 14:31 EKG Documentation Completion [RC] STAT 02/10/21 14:37 Sodium Chloride 0.9% [Normal Saline] 1,000 ml IV STAT 02/10/21 16:50 OVA & PARASITES BY IMMUNOASSAY [MREF] Stat STOOL CULTURE/SHIGA TOXIN [MREF] Stat 02/10/21 17:09 EKG Documentation Completion [RC] STAT - Assessment/Plan Last 24 Hours: My Active Orders 02/10/21 14:31 EKG Documentation Completion [RC] STAT 02/10/21 14:37 Sodium Chloride 0.9% [Normal Saline] 1,000 ml IV STAT 02/10/21 16:50 OVA & PARASITES BY IMMUNOASSAY [MREF] Stat STOOL CULTURE/SHIGA TOXIN [MREF] Stat 02/10/21 17:09 EKG Documentation Completion [RC] STAT
--- NOTE | 2021-02-10 18:32 | PCM.PRNOTE ---
- Free Text/Narrative Note: Anes NOte I was called to ER to provide IV access for this patient with difficult veins. A 22TN was placed in the left forarm. Excellent blood return. Flushes with ease. Time with patient [id number] Michael Silverman CRNA
[2021-02-10] MEDS ORDERED: Acetaminophen 325 MG Tab PO PRN (19:06)
[2021-02-10] MEDS ORDERED: Albuterol/Ipratropium 3.0-0.5 MG/3 ML Neb Soln NEB PRN (19:06)
[2021-02-10] MEDS ORDERED: Ondansetron 4 MG/2 ML SDV IVPUSH PRN (19:06)
[2021-02-10] MEDS ORDERED: Lactated Ringers 1,000 ML IV SCH (19:15)
[2021-02-10] MEDS ORDERED: Levofloxacin/Dextrose 5%-Water 750 MG in Premix Bag 1 BAG IV SCH (19:15)
[2021-02-10] MEDS ORDERED: ALPRAZolam 0.25 MG Tab PO SCH (19:15)
[2021-02-10] MEDS ORDERED: Heparin Sodium 5,000 Units/ML Vial SUBCUT SCH (19:15)
[2021-02-10] MEDS ORDERED: Potassium Chloride 20 MEQ Tab.ER PO ONE (19:16)
--- NOTE | 2021-02-10 21:29 | PCM.HP.2 ---
H&P History of Present Illness - General Date of Service: 02/10/21 Admit Problem/Dx: Admission Diagnosis/Problem Admission Diagnosis/Problem Dehydration - History of Present Illness Initial Comments - Free Text/Narative: Patient is a 75-year-old female with multiple myeloma who is currently on chemotherapy, prior history of palpitations and tachycardia, and hypertension, who presents to the emergency department secondary to a 1 week history of intermittent non bilious/non bloody vomiting (last vomited 4 days ago) and non bloody / watery diarrhea that has been constant. Patient reports that 5 days ago on Saturday she vomited and then had diarrhea which has persisted throughout the week. Patient states that she awoke this morning and had a syncopal episode , states she is unsure if she hit her head but passed out for a few minutes up until her helped her up again patient states that she felt dehydrated and dizzy. Patient denies any pain or injuries due to the fall at this time. Patient reports that she gets monthly chemo infusions and that she has not had an infusion yet this month and was scheduled to do so in a couple of days but does take a pill daily. Patient states that she has been short of breath throughout this last week and has some cough as well. Patient states that her other family members also had some diarrhea after they had a cookout on Father's Day. Patient states that it might be the food that he ate but is not sure. Patient states that she has history of tachycardia but has never been diagnosed with A. fib in the past patient has been started on Cardizem by her primary care doctor for intermittent tachycardia. Patient states that she has been worked up for tachycardia in the past including Holter monitoring and nothing came up. Patient denies fever, chills, chest pain. Denies headache, neck stiff ness, change in vision. Denies abdominal pain, or dysuria. Has not noted any blood in urine or stool. Patient's labs are significant for DURAN, chest x-ray was significant for atelectasis versus pneumonia, UA did not show any significant UTI, EKG showed A. fib with RVR patient received IV 10 mg Cardizem and oral 60 mg of Cardizem as well for rate control. She was to dizzy and not able to ambulate safely. Patient was admitted for further management - Related Data Allergies/Adverse Reactions: Allergies Allergy/AdvReac Type Severity Reaction Status Date / Time cantaloupe Allergy Other Verified 02/10/21 19:44 codeine Allergy Difficulty Verified 02/10/21 19:44 Breathing Home Medications: Home Meds Potassium Chloride [Klor-Con 10] 2 tab PO ACBRK 01/01/14 [History] Aspirin 1 tab PO DAILY 12/17/15 [History] Calcium Carbonate/Vitamin D3 [Calcium 600 + Vit D Softgel] 1 cap PO DAILY 12/17/15 [History] Cholecalciferol (Vitamin D3) [Vitamin D3] 1 tab PO DAILY 12/17/15 [History] Multivitamin [Multivitamins] 1 tab PO DAILY 12/17/15 [History] Losartan [Cozaar] 100 mg PO DAILY 12/14/17 [History] Lenalidomide [Revlimid] 10 mg PO DAILY 03/12/20 [History] ALPRAZolam [Alprazolam] 0.25 mg PO ASDIRECTED 02/10/21 [History] Diltiazem HCl [Diltiazem 24Hr Cd] 120 mg PO DAILY 02/10/21 [History] Past Medical History HEENT History: Reports: Impaired Vision Cardiovascular History: Reports: Hypertension Respiratory History: Reports: None Gastrointestinal History: Reports: Diverticulosis Other Gastrointestinal History: heartburn Genitourinary History: Reports: None 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 Dermatologic History: Reports: Other (See Below) Other Dermatologic History: multiple Myeloma - Infectious Disease History Infectious Disease History: Reports: Chicken Pox - Past Surgical History Head Surgeries/Procedures: Reports: None HEENT Surgical History: Reports: None Cardiovascular Surgical History: Reports: None GI Surgical History: Reports: Cholecystectomy, Small Bowel, Other (See Below) Other GI Surgeries/Procedures: ruptured intestines, dumping syndrome Female Surgical History: Reports: Breast Biopsy, Hysterectomy Endocrine Surgical History: Reports: None Neurological Surgical History: Reports: None Musculoskeletal Surgical History: Reports: None Oncologic Surgical History: Reports: None Dermatological Surgical History: Reports: None Social & Family History - Family History Family Medical History: No Pertinent Family History HEENT: Reports: None Cardiac: Reports: None - Tobacco Use Tobacco Use Status *Q: Never Tobacco User - Caffeine Use Caffeine Use: Reports: None - Recreational Drug Use Recreational Drug Use: No H&P Review of Systems - Review of Systems: Review Of Systems: See Below General: Reports: Malaise, Weakness, Fatigue, Decreased Appetite. Denies: Fever, Chills HEENT: Denies: Contact Lenses, Dysphasia Pulmonary: Denies: Shortness of Breath, Wheezing Cardiovascular: Denies: Chest Pain, Palpitations Gastrointestinal: Reports: Anorexia, Nausea, Vomiting. Denies: Abdominal Pain, Bloody Stool, Difficulty Swallowing, Flatus, Hematemesis, Hematochezia Genitourinary: Denies: Dysuria, Frequency Musculoskeletal: Denies: Neck Pain, Shoulder Pain, Arm Pain Skin: Denies: Cyanosis, Jaundice Psychiatric: Denies: Confusion, Depression, Mood Lability Neurological: Denies: Confusion, Dizziness, Headache Hematologic/Lymphatic: Denies: Anemia, Easy Bleeding, Easy Bruising Exam - Exam Exam: See Below - Vital Signs Vital Signs: Last Vital Signs Temp 36.2 C 02/10/21 19:10 Pulse 88 02/10/21 19:10 Resp 16 02/10/21 19:10 BP 106/66 02/10/21 19:10 Pulse Ox 96 02/10/21 19:10 Weight: 57.606 kg - Exam General: Alert, Oriented, Cooperative Neck: Supple, Trachea Midline Lungs: Clear to Auscultation, Normal Respiratory Effort Cardiovascular: Normal S1, Normal S2, Irregular Rhythm, Tachycardia - Patient Data Lab Results Last 24 hrs: Laboratory Results - last 24 hr 02/10/21 02/10/21 02/10/21 Range/Units 14:30 14:30 14:30 WBC 8.59 (4.0-11.0) K/uL RBC 4.58 (4.30-5.90) M/uL Hgb 15.3 (12.0-16.0) g/dL Hct 43.8 (36.0-46.0) % MCV 95.6 (80.0-98.0) fL MCH 33.4 H (27.0-32.0) pg MCHC 34.9 (31.0-37.0) g/dL RDW Std Deviation 48.1 (28.0-62.0) fl RDW Coeff of Bubba 14 (11.0-15.0) % Plt Count 234 (150-400) K/uL MPV 11.10 (7.40-12.00) fL Neut % (Auto) 81.7 H (48.0-80.0) % Lymph % (Auto) 10.1 L (16.0-40.0) % Walton % (Auto) 7.3 (0.0-15.0) % Eos % (Auto) 0.8 (0.0-7.0) % Baso % (Auto) 0.1 (0.0-1.5) % Neut # (Auto) 7.0 H (1.4-5.7) K/uL Lymph # (Auto) 0.9 (0.6-2.4) K/uL Walton # (Auto) 0.6 (0.0-0.8) K/uL Eos # (Auto) 0.1 (0.0-0.7) K/uL Baso # (Auto) 0.0 (0.0-0.1) K/uL D-Dimer, Quantitative (0.0-0.50) mg/L FEU Sodium 141 (136-145) mmol/L Potassium 3.3 L (3.5-5.1) mmol/L Chloride 108 H (98-107) mmol/L Carbon Dioxide 21.2 (21.0-32.0) mmol/L BUN 26 H (7.0-18.0) mg/dL Creatinine 1.8 H (0.6-1.0) mg/dL Est Cr Clr Drug Dosing 22.49 mL/min Estimated GFR (MDRD) 27.3 ml/min Glucose 172 H (74-106) mg/dL Calcium 8.7 (8.5-10.1) mg/dL Magnesium (1.8-2.4) mg/dL Total Bilirubin 1.0 (0.2-1.0) mg/dL AST 26 (15-37) IU/L ALT 31 (14-63) IU/L Alkaline Phosphatase 71 (46-116) U/L Troponin I < 0.050 (0.000-0.056) ng/mL B-Natriuretic Peptide (<100) PG/ML Total Protein 6.5 (6.4-8.2) g/dL Albumin 3.4 (3.4-5.0) g/dL Globulin 3.1 (2.6-4.0) g/dL Albumin/Globulin Ratio 1.1 (0.9-1.6) Lipase 125 (73-393) U/L Urine Color Urine Appearance Urine pH (5.0-8.0) Ur Specific [place] (1.001-1.035) Urine Protein (NEGATIVE) mg/dL Urine Glucose (UA) (NEGATIVE) mg/dL Urine Ketones (NEGATIVE) mg/dL Urine Occult Blood (NEGATIVE) Urine Nitrite (NEGATIVE) Urine Bilirubin (NEGATIVE) Urine Urobilinogen (<2.0) EU/dL Ur Leukocyte Esterase (NEGATIVE) U Hyaline Cast (Auto) (0-2/LPF) Urine RBC (0-2/HPF) Urine WBC (0-5/HPF) Ur Epithelial Cells (NONE-FEW) Urine Bacteria (NEGATIVE) Urine Mucus (NONE-MOD) 02/10/21 02/10/21 02/10/21 Range/Units 14:30 14:30 14:30 WBC (4.0-11.0) K/uL RBC (4.30-5.90) M/uL Hgb (12.0-16.0) g/dL Hct (36.0-46.0) % MCV (80.0-98.0) fL MCH (27.0-32.0) pg MCHC (31.0-37.0) g/dL RDW Std Deviation (28.0-62.0) fl RDW Coeff of Bubba (11.0-15.0) % Plt Count (150-400) K/uL MPV (7.40-12.00) fL Neut % (Auto) (48.0-80.0) % Lymph % (Auto) (16.0-40.0) % Walton % (Auto) (0.0-15.0) % Eos % (Auto) (0.0-7.0) % Baso % (Auto) (0.0-1.5) % Neut # (Auto) (1.4-5.7) K/uL Lymph # (Auto) (0.6-2.4) K/uL Walton # (Auto) (0.0-0.8) K/uL Eos # (Auto) (0.0-0.7) K/uL Baso # (Auto) (0.0-0.1) K/uL D-Dimer, Quantitative 0.54 H (0.0-0.50) mg/L FEU Sodium (136-145) mmol/L Potassium (3.5-5.1) mmol/L Chloride (98-107) mmol/L Carbon Dioxide (21.0-32.0) mmol/L BUN (7.0-18.0) mg/dL Creatinine (0.6-1.0) mg/dL Est Cr Clr Drug Dosing mL/min Estimated GFR (MDRD) ml/min Glucose (74-106) mg/dL Calcium (8.5-10.1) mg/dL Magnesium 2.1 (1.8-2.4) mg/dL Total Bilirubin (0.2-1.0) mg/dL AST (15-37) IU/L ALT (14-63) IU/L Alkaline Phosphatase (46-116) U/L Troponin I (0.000-0.056) ng/mL B-Natriuretic Peptide 295 H (<100) PG/ML Total Protein (6.4-8.2) g/dL Albumin (3.4-5.0) g/dL Globulin (2.6-4.0) g/dL Albumin/Globulin Ratio (0.9-1.6) Lipase (73-393) U/L Urine Color Urine Appearance Urine pH (5.0-8.0) Ur Specific [place] (1.001-1.035) Urine Protein (NEGATIVE) mg/dL Urine Glucose (UA) (NEGATIVE) mg/dL Urine Ketones (NEGATIVE) mg/dL Urine Occult Blood (NEGATIVE) Urine Nitrite (NEGATIVE) Urine Bilirubin (NEGATIVE) Urine Urobilinogen (<2.0) EU/dL Ur Leukocyte Esterase (NEGATIVE) U Hyaline Cast (Auto) (0-2/LPF) Urine RBC (0-2/HPF) Urine WBC (0-5/HPF) Ur Epithelial Cells (NONE-FEW) Urine Bacteria (NEGATIVE) Urine Mucus (NONE-MOD) 02/10/ Range/Units 16:50 WBC (4.0-11.0) K/uL RBC (4.30-5.90) M/uL Hgb (12.0-16.0) g/dL Hct (36.0-46.0) % MCV (80.0-98.0) fL MCH (27.0-32.0) pg MCHC (31.0-37.0) g/dL RDW Std Deviation (28.0-62.0) fl RDW Coeff of Bubba (11.0-15.0) % Plt Count (150-400) K/uL MPV (7.40-12.00) fL Neut % (Auto) (48.0-80.0) % Lymph % (Auto) (16.0-40.0) % Walton % (Auto) (0.0-15.0) % Eos % (Auto) (0.0-7.0) % Baso % (Auto) (0.0-1.5) % Neut # (Auto) (1.4-5.7) K/uL Lymph # (Auto) (0.6-2.4) K/uL Walton # (Auto) (0.0-0.8) K/uL Eos # (Auto) (0.0-0.7) K/uL Baso # (Auto) (0.0-0.1) K/uL D-Dimer, Quantitative (0.0-0.50) mg/L FEU Sodium (136-145) mmol/L Potassium (3.5-5.1) mmol/L Chloride (98-107) mmol/L Carbon Dioxide (21.0-32.0) mmol/L BUN (7.0-18.0) mg/dL Creatinine (0.6-1.0) mg/dL Est Cr Clr Drug Dosing mL/min Estimated GFR (MDRD) ml/min Glucose (74-106) mg/dL Calcium (8.5-10.1) mg/dL Magnesium (1.8-2.4) mg/dL Total Bilirubin (0.2-1.0) mg/dL AST (15-37) IU/L ALT (14-63) IU/L Alkaline Phosphatase (46-116) U/L Troponin I (0.000-0.056) ng/mL B-Natriuretic Peptide (<100) PG/ML Total Protein (6.4-8.2) g/dL Albumin (3.4-5.0) g/dL Globulin (2.6-4.0) g/dL Albumin/Globulin Ratio (0.9-1.6) Lipase (73-393) U/L Urine Color YELLOW Urine Appearance HAZY Urine pH 6.0 (5.0-8.0) Ur Specific [place] 1.025 (1.001-1.035) Urine Protein TRACE H (NEGATIVE) mg/dL Urine Glucose (UA) NEGATIVE (NEGATIVE) mg/dL Urine Ketones NEGATIVE (NEGATIVE) mg/dL Urine Occult Blood TRACE-LYSED H (NEGATIVE) Urine Nitrite NEGATIVE (NEGATIVE) Urine Bilirubin NEGATIVE (NEGATIVE) Urine Urobilinogen 0.2 (<2.0) EU/dL Ur Leukocyte Esterase NEGATIVE (NEGATIVE) U Hyaline Cast (Auto) 3-6 (0-2/LPF) Urine RBC 0-3 (0-2/HPF) Urine WBC 0-2 (0-5/HPF) Ur Epithelial Cells OCCASIONAL (NONE-FEW) Urine Bacteria FEW (NEGATIVE) Urine Mucus LIGHT (NONE-MOD) Result Diagrams: 02/11/21 05:15 02/11/21 05:15 Sree Results Last 24 hrs: Microbiology 02/10/21 16:50 C. difficile Antigen & Toxins A,B - Final Stool / Feces Sepsis Event Note - Evaluation Sepsis Screening Result: No Definite Risk - Focused Exam Vital Signs: Vital Signs Temp Pulse Resp BP Pulse Ox 02/10/21 19:10 36.2 C 88 16 106/66 96 02/10/21 18:00 98 17 121/82 94 L 02/10/21 17:28 103 H 17 103/69 94 L 02/10/21 17:08 116 H 17 115/67 97 02/10/21 16:28 104 H 16 102/71 97 02/10/21 15:22 100 17 97/65 99 02/10/21 15:10 90 97 02/10/21 15:05 84 98 02/10/21 14:59 109 H 17 98/51 L 98 02/10/21 14:30 148 H 18 82/60 L 96 02/10/21 14:25 96 17 94/69 92 L 02/10/21 14:17 36.4 C 95 20 74/51 L 96 Problem List Initiated/Reviewed/Updated: Yes Orders Last 24hrs: Active Orders 24 hr Category Date Time Status Admission Status [Patient Status] [ADT] Stat ADT 02/10/21 18:05 Active Ambulate [RC] ASDIRECTED Care 02/10/21 19:06 Active Antiembolic Devices [RC] PER UNIT ROUTINE Care 02/10/21 19:09 Active EKG Documentation Completion [RC] STAT Care 02/10/21 14:31 Active EKG Documentation Completion [RC] STAT Care 02/10/21 17:09 Active Oxygen Therapy [RC] PRN Care 02/10/21 19:09 Active Pulse Oximetry [RC] PRN Care 02/10/21 19:09 Active RT Aerosol Therapy [RC] ASDIRECTED Care 02/10/21 19:11 Active Telemetry Monitoring [Cardiac Monitoring] [RC] Q8H Care 02/10/21 19:13 Active VTE/DVT Education [RC] PER UNIT ROUTINE Care 02/10/21 19:09 Active Vital Signs [RC] Q4H Care 02/10/21 19:09 Active Heart Healthy Diet [DIET] Diet 02/10/21 Dinner Active BMP [BASIC METABOLIC PANEL,BMP] [CHEM] AM Lab 02/11/21 05:11 Ordered CBC WITH AUTO DIFF [HEME] AM Lab 02/11/21 05:11 Ordered MAGNESIUM [CHEM] AM Lab 02/11/21 05:11 Ordered OVA & PARASITES BY IMMUNOASSAY [MREF] Stat Lab 02/10/21 16:50 Received PHOSPHORUS [CHEM] AM Lab 02/11/21 05:11 Ordered STOOL CULTURE/SHIGA TOXIN [MREF] Stat Lab 02/10/21 16:50 Received ALPRAZolam [Xanax] Med 02/10/21 19:15 Active 0.25 mg PO ASDIRECTED Acetaminophen [TylenoL] Med 02/10/21 19:06 Active 650 mg PO Q4H PRN Albuterol/Ipratropium [DuoNeb 3.0-0.5 MG/3 ML] Med 02/10/21 19:06 Active 3 ml NEB Q4HRRT PRN Aspirin Med 02/11/21 09:00 Active 81 mg PO DAILY Calcium Carbonate/Vitamin D3 [Calcium 600-Vit D3 500 Med 02/11/21 09:00 Active Softgel] 1 cap PO DAILY Cholecalciferol (Vitamin D3) [Vitamin D3] Med 02/11/21 09:00 Active 25 mcg PO DAILY Diltiazem [Cardizem CD] Med 02/11/21 09:00 Active 120 mg PO DAILY Heparin Sodium Med 02/10/21 19:15 Active 5,000 units SUBCUT Q8H Lactated Ringers [Ringers, Lactated] 1,000 ml Med 02/10/21 19:15 Active IV ASDIRECTED Levofloxacin/Dextrose 5%-Water [Levaquin in D5W 750 MG/ Med 02/10/21 19:15 Active 150 ML] 750 mg Premix Bag 1 bag IV Q24H Multivitamin [Multivitamins] Med 02/11/21 09:00 Active 1 tab PO DAILY Ondansetron [Zofran] Med 02/10/21 19:06 Active 4 mg IVPUSH Q4H PRN Pantoprazole [ProTONIX IV] 40 mg Med 02/11/21 09:00 Active Sodium Chloride 0.9% [Normal Saline] 10 ml IV DAILY Sodium Chloride 0.9% [Normal Saline] 1,000 ml Med 02/10/21 14:37 Active IV STAT Sequential Compression Device [OM.PC] Per Unit Routine Oth 02/10/21 19:09 Ordered Medication Orders Acetaminophen (Acetaminophen 325 Mg Tab) 650 mg PO Q4H PRN PRN Reason: Pain (Mild 1-3)/fever Albuterol/Ipratropium (Albuterol/Ipratropium 3.0-0.5 Mg/3 Ml Neb Soln) 3 ml NEB Q4HRRT PRN PRN Reason: Shortness Of Breath/wheezing Alprazolam (Alprazolam 0.25 Mg Tab) 0.25 mg PO ASDIRECTED MARISA Aspirin (Aspirin 81 Mg Tab.Chew) 81 mg PO DAILY [facility] Cholecalciferol (Cholecalciferol (Vitamin D3) 25 Mcg Tab) 25 mcg PO DAILY [facility] Diltiazem HCl (Diltiazem 180 Mg Cap.Cd) 120 mg PO DAILY [facility] Heparin Sodium (Porcine) (Heparin Sodium 5,000 Units/Ml Vial) 5,000 units SUBCUT Q8H [facility] Last Admin: 02/10/21 19:58 Dose: 5,000 units Documented by: SEMICHR Sodium Chloride (Normal Saline) 1,000 mls @ 90 mls/hr IV STAT ONE Stop: 02/11/21 01:43 Last Infusion: 02/10/21 18:58 Dose: 90 mls/hr Documented by: Infusion: 02/10/21 17:00 Dose: 0 mls/hr Documented by: Admin: 02/10/21 14:51 Dose: 90 mls/hr Documented by: MARY Lactated Ringer's (Ringers, Lactated) 1,000 mls @ 125 mls/hr IV ASDIRECTED MARISA Pantoprazole Sodium 40 mg/ (Sodium Chloride) 10 mls @ 300 mls/hr IV DAILY MARISA Levofloxacin/Dextrose 750 mg/ (Premix) 150 mls @ 100 mls/hr IV Q24H MARISA Last Admin: 02/10/21 19:59 Dose: 100 mls/hr Documented by: MACARIO Non-Formulary Medication (Calcium Carbonate/Vitamin D3 [Calcium 600-Vit D3 500 Softgel]) 1 cap PO DAILY MARISA Non-Formulary Medication (Multivitamin [Multivitamins]) 1 tab PO DAILY MARISA Ondansetron HCl (Ondansetron 4 Mg/2 Ml Sdv) 4 mg IVPUSH Q4H PRN PRN Reason: Nausea/Vomiting Assessment/Plan Comment:: 75-year-old female admitted for nausea, vomiting, intractable diarrhea with dehydration as well as A. fib RVR which reportedly is new as onset Chest x-ray significant for possible pneumonia Start aggressive IV hydration with LR Resume patient's Cardizem home dose, may have to increase the dose depending upon patient's rate control and blood pressure Patient will benefit from 2D echo although it is not available in our facility over the weekend, may need to arrange outpatient echo if patient is discharged over the weekend IV Cardizem as needed for A. fib RVR, Patient will be started on oral anticoagulation in view of high Kamran vas score We will start patient on IV Levaquin and IV Flagyl for pneumonia as well as possible gastroenteritis We will send stool studies including C. difficile giardiasis cryptosporidiosis, Campylobacter, Salmonella and Shigella Continue IV hydration for DURAN Continue to monitor electrolytes daily Anticipate 1-2 midnight stay Patient is DNR/DNI
[2021-02-10] MEDS ORDERED: Lactated Ringers 1,000 ML IV ONE (22:00)
[2021-02-10] MEDS ORDERED: LORazepam 2 MG/ML SDV IVPUSH PRN (23:02)
[2021-02-10] MEDS ORDERED: Diltiazem IR 60 MG Tab PO PRN (23:04)
[2021-02-10] MEDS: Apixaban 2.5 MG Tab PO SCH (23:32)
[2021-02-11 05:43] LABS: CARBON DIOXIDE,CO2 22.4 mmol/L (21.0-32.0); POTASSIUM,K 4.2 mmol/L (3.5-5.1)
[2021-02-11] MEDS: Lactated Ringers 1,000 ML IV SCH ×2 (08:13→17:45)
[2021-02-11] MEDS: Pantoprazole 40 MG in Sodium Chloride 0.9% 10 ML IV SCH (08:13)
[2021-02-11] MEDS ORDERED: Phosphorus #1 250 MG Tab PO ONE (08:46)
[2021-02-11] MEDS ORDERED: Magnesium Sulfate/Water 2 GM in Premix Bag 1 BAG IV ONE (08:46)
[2021-02-11] MEDS ORDERED: Diltiazem 120 MG Cap.CD PO SCH (09:00)
[2021-02-11] MEDS ORDERED: Diltiazem 180 MG Cap.CD PO SCH (09:00)
[2021-02-11] MEDS: Apixaban 2.5 MG Tab PO SCH ×2 (09:07→20:24)
[2021-02-11] MEDS: Aspirin 81 MG Tab.Chew PO SCH (09:07)
[2021-02-11] MEDS: Calcium Carbonate/Vitamin D3 1500 MG-400 Units Tab PO SCH (09:07)
[2021-02-11] MEDS: Cholecalciferol (Vitamin D3) 25 MCG Tab PO SCH (09:07)
[2021-02-11] MEDS: Multivitamin Tab PO SCH (09:07)
--- NOTE | 2021-02-11 12:07 | PCM.PN ---
- General Info Date of Service: 02/11/21 Admission Dx/Problem (Free Text): Admission Diagnosis/Problem Admission Diagnosis/Problem Dehydration Subjective Update: Patient seen at bedside, resting comfortably, states she had a good night sleep and feels much better today although the diarrhea continues to be bothersome , dizziness is significantly improved, she tolerated her breakfast well Functional Status: Reports: Pain Controlled, Tolerating Diet, Ambulating - Review of Systems General: Reports: Weakness. Denies: Fever, Fatigue, Malaise Pulmonary: Denies: Shortness of Breath, Pleuritic Chest Pain, Cough Cardiovascular: Reports: Dyspnea on Exertion. Denies: Chest Pain, Palpitations Genitourinary: Denies: Dysuria, Frequency, Burning Musculoskeletal: Denies: Neck Pain, Shoulder Pain Skin: Denies: Cyanosis, Jaundice, Mottled Neurological: Reports: Dizziness. Denies: Confusion, Headache, Numbness - Patient Data Vitals - Most Recent: Last Vital Signs Temp 37.4 C 02/11/21 09:00 Pulse 103 H 02/11/21 09:00 Resp 18 02/11/21 09:00 BP 104/64 02/11/21 09:00 Pulse Ox 97 02/11/21 09:00 Weight - Most Recent: 57.606 kg I&O - Last 24 Hours: Intake & Output 02/10/21 02/11/21 02/11/21 22:59 06:59 14:59 Intake Total 2490 Output Total 750 Balance 1740 Lab Results Last 24 Hours: Laboratory Results - last 24 hr 02/10/21 02/10/21 02/10/21 Range/Units 14:30 14:30 14:30 WBC 8.59 (4.0-11.0) K/uL RBC 4.58 (4.30-5.90) M/uL Hgb 15.3 (12.0-16.0) g/dL Hct 43.8 (36.0-46.0) % MCV 95.6 (80.0-98.0) fL MCH 33.4 H (27.0-32.0) pg MCHC 34.9 (31.0-37.0) g/dL RDW Std Deviation 48.1 (28.0-62.0) fl RDW Coeff of Bubba 14 (11.0-15.0) % Plt Count 234 (150-400) K/uL MPV 11.10 (7.40-12.00) fL Neut % (Auto) 81.7 H (48.0-80.0) % Lymph % (Auto) 10.1 L (16.0-40.0) % [place] % (Auto) 7.3 (0.0-15.0) % Eos % (Auto) 0.8 (0.0-7.0) % Baso % (Auto) 0.1 (0.0-1.5) % Neut # (Auto) 7.0 H (1.4-5.7) K/uL Lymph # (Auto) 0.9 (0.6-2.4) K/uL [place] # (Auto) 0.6 (0.0-0.8) K/uL Eos # (Auto) 0.1 (0.0-0.7) K/uL Baso # (Auto) 0.0 (0.0-0.1) K/uL D-Dimer, Quantitative (0.0-0.50) mg/L FEU Sodium 141 (136-145) mmol/L Potassium 3.3 L (3.5-5.1) mmol/L Chloride 108 H (98-107) mmol/L Carbon Dioxide 21.2 (21.0-32.0) mmol/L BUN 26 H (7.0-18.0) mg/dL Creatinine 1.8 H (0.6-1.0) mg/dL Est Cr Clr Drug Dosing 22.49 mL/min Estimated GFR (MDRD) 27.3 ml/min Glucose 172 H (74-106) mg/dL Calcium 8.7 (8.5-10.1) mg/dL Phosphorus (2.6-4.7) mg/dL Magnesium (1.8-2.4) mg/dL Total Bilirubin 1.0 (0.2-1.0) mg/dL AST 26 (15-37) IU/L ALT 31 (14-63) IU/L Alkaline Phosphatase 71 (46-116) U/L Troponin I < 0.050 (0.000-0.056) ng/mL B-Natriuretic Peptide (<100) PG/ML Total Protein 6.5 (6.4-8.2) g/dL Albumin 3.4 (3.4-5.0) g/dL Globulin 3.1 (2.6-4.0) g/dL Albumin/Globulin Ratio 1.1 (0.9-1.6) Lipase 125 (73-393) U/L Urine Color Urine Appearance Urine pH (5.0-8.0) Ur Specific [place] (1.001-1.035) Urine Protein (NEGATIVE) mg/dL Urine Glucose (UA) (NEGATIVE) mg/dL Urine Ketones (NEGATIVE) mg/dL Urine Occult Blood (NEGATIVE) Urine Nitrite (NEGATIVE) Urine Bilirubin (NEGATIVE) Urine Urobilinogen (<2.0) EU/dL Ur Leukocyte Esterase (NEGATIVE) U Hyaline Cast (Auto) (0-2/LPF) Urine RBC (0-2/HPF) Urine WBC (0-5/HPF) Ur Epithelial Cells (NONE-FEW) Urine Bacteria (NEGATIVE) Urine Mucus (NONE-MOD) 02/10/21 02/10/21 02/10/21 Range/Units 14:30 14:30 14:30 WBC (4.0-11.0) K/uL RBC (4.30-5.90) M/uL Hgb (12.0-16.0) g/dL Hct (36.0-46.0) % MCV (80.0-98.0) fL MCH (27.0-32.0) pg MCHC (31.0-37.0) g/dL RDW Std Deviation (28.0-62.0) fl RDW Coeff of Bubba (11.0-15.0) % Plt Count (150-400) K/uL MPV (7.40-12.00) fL Neut % (Auto) (48.0-80.0) % Lymph % (Auto) (16.0-40.0) % [place] % (Auto) (0.0-15.0) % Eos % (Auto) (0.0-7.0) % Baso % (Auto) (0.0-1.5) % Neut # (Auto) (1.4-5.7) K/uL Lymph # (Auto) (0.6-2.4) K/uL [place] # (Auto) (0.0-0.8) K/uL Eos # (Auto) (0.0-0.7) K/uL Baso # (Auto) (0.0-0.1) K/uL D-Dimer, Quantitative 0.54 H (0.0-0.50) mg/L FEU Sodium (136-145) mmol/L Potassium (3.5-5.1) mmol/L Chloride (98-107) mmol/L Carbon Dioxide (21.0-32.0) mmol/L BUN (7.0-18.0) mg/dL Creatinine (0.6-1.0) mg/dL Est Cr Clr Drug Dosing mL/min Estimated GFR (MDRD) ml/min Glucose (74-106) mg/dL Calcium (8.5-10.1) mg/dL Phosphorus (2.6-4.7) mg/dL Magnesium 2.1 (1.8-2.4) mg/dL Total Bilirubin (0.2-1.0) mg/dL AST (15-37) IU/L ALT (14-63) IU/L Alkaline Phosphatase (46-116) U/L Troponin I (0.000-0.056) ng/mL B-Natriuretic Peptide 295 H (<100) PG/ML Total Protein (6.4-8.2) g/dL Albumin (3.4-5.0) g/dL Globulin (2.6-4.0) g/dL Albumin/Globulin Ratio (0.9-1.6) Lipase (73-393) U/L Urine Color Urine Appearance Urine pH (5.0-8.0) Ur Specific [place] (1.001-1.035) Urine Protein (NEGATIVE) mg/dL Urine Glucose (UA) (NEGATIVE) mg/dL Urine Ketones (NEGATIVE) mg/dL Urine Occult Blood (NEGATIVE) Urine Nitrite (NEGATIVE) Urine Bilirubin (NEGATIVE) Urine Urobilinogen (<2.0) EU/dL Ur Leukocyte Esterase (NEGATIVE) U Hyaline Cast (Auto) (0-2/LPF) Urine RBC (0-2/HPF) Urine WBC (0-5/HPF) Ur Epithelial Cells (NONE-FEW) Urine Bacteria (NEGATIVE) Urine Mucus (NONE-MOD) 02/10/21 02/11/21 02/11/21 Range/Units 16:50 05:15 05:15 WBC 4.85 (4.0-11.0) K/uL RBC 3.60 L (4.30-5.90) M/uL Hgb 12.1 (12.0-16.0) g/dL Hct 34.5 L (36.0-46.0) % MCV 95.8 (80.0-98.0) fL MCH 33.6 H (27.0-32.0) pg MCHC 35.1 (31.0-37.0) g/dL RDW Std Deviation 47.1 (28.0-62.0) fl RDW Coeff of Bubba 14 (11.0-15.0) % Plt Count 153 (150-400) K/uL MPV 10.90 (7.40-12.00) fL Neut % (Auto) 71.3 (48.0-80.0) % Lymph % (Auto) 17.1 (16.0-40.0) % [place] % (Auto) 9.3 (0.0-15.0) % Eos % (Auto) 2.1 (0.0-7.0) % Baso % (Auto) 0.2 (0.0-1.5) % Neut # (Auto) 3.5 (1.4-5.7) K/uL Lymph # (Auto) 0.8 (0.6-2.4) K/uL [place] # (Auto) 0.5 (0.0-0.8) K/uL Eos # (Auto) 0.1 (0.0-0.7) K/uL Baso # (Auto) 0.0 (0.0-0.1) K/uL D-Dimer, Quantitative (0.0-0.50) mg/L FEU Sodium 142 (136-145) mmol/L Potassium 4.2 (3.5-5.1) mmol/L Chloride 111 H (98-107) mmol/L Carbon Dioxide 22.4 (21.0-32.0) mmol/L BUN 18 (7.0-18.0) mg/dL Creatinine 1.2 H (0.6-1.0) mg/dL Est Cr Clr Drug Dosing 35.33 mL/min Estimated GFR (MDRD) 43.6 ml/min Glucose 82 (74-106) mg/dL Calcium 7.8 L (8.5-10.1) mg/dL Phosphorus 2.4 L (2.6-4.7) mg/dL Magnesium 1.6 L (1.8-2.4) mg/dL Total Bilirubin (0.2-1.0) mg/dL AST (15-37) IU/L ALT (14-63) IU/L Alkaline Phosphatase (46-116) U/L Troponin I (0.000-0.056) ng/mL B-Natriuretic Peptide (<100) PG/ML Total Protein (6.4-8.2) g/dL Albumin (3.4-5.0) g/dL Globulin (2.6-4.0) g/dL Albumin/Globulin Ratio (0.9-1.6) Lipase (73-393) U/L Urine Color YELLOW Urine Appearance HAZY Urine pH 6.0 (5.0-8.0) Ur Specific [place] 1.025 (1.001-1.035) Urine Protein TRACE H (NEGATIVE) mg/dL Urine Glucose (UA) NEGATIVE (NEGATIVE) mg/dL Urine Ketones NEGATIVE (NEGATIVE) mg/dL Urine Occult Blood TRACE-LYSED H (NEGATIVE) Urine Nitrite NEGATIVE (NEGATIVE) Urine Bilirubin NEGATIVE (NEGATIVE) Urine Urobilinogen 0.2 (<2.0) EU/dL Ur Leukocyte Esterase NEGATIVE (NEGATIVE) U Hyaline Cast (Auto) 3-6 (0-2/LPF) Urine RBC 0-3 (0-2/HPF) Urine WBC 0-2 (0-5/HPF) Ur Epithelial Cells OCCASIONAL (NONE-FEW) Urine Bacteria FEW (NEGATIVE) Urine Mucus LIGHT (NONE-MOD) 02/11/21 Range/Units 05:15 WBC (4.0-11.0) K/uL RBC (4.30-5.90) M/uL Hgb (12.0-16.0) g/dL Hct (36.0-46.0) % MCV (80.0-98.0) fL MCH (27.0-32.0) pg MCHC (31.0-37.0) g/dL RDW Std Deviation (28.0-62.0) fl RDW Coeff of Bubba (11.0-15.0) % Plt Count (150-400) K/uL MPV (7.40-12.00) fL Neut % (Auto) (48.0-80.0) % Lymph % (Auto) (16.0-40.0) % [place] % (Auto) (0.0-15.0) % Eos % (Auto) (0.0-7.0) % Baso % (Auto) (0.0-1.5) % Neut # (Auto) (1.4-5.7) K/uL Lymph # (Auto) (0.6-2.4) K/uL [place] # (Auto) (0.0-0.8) K/uL Eos # (Auto) (0.0-0.7) K/uL Baso # (Auto) (0.0-0.1) K/uL D-Dimer, Quantitative (0.0-0.50) mg/L FEU Sodium (136-145) mmol/L Potassium (3.5-5.1) mmol/L Chloride (98-107) mmol/L Carbon Dioxide (21.0-32.0) mmol/L BUN (7.0-18.0) mg/dL Creatinine (0.6-1.0) mg/dL Est Cr Clr Drug Dosing mL/min Estimated GFR (MDRD) ml/min Glucose (74-106) mg/dL Calcium (8.5-10.1) mg/dL Phosphorus (2.6-4.7) mg/dL Magnesium (1.8-2.4) mg/dL Total Bilirubin (0.2-1.0) mg/dL AST (15-37) IU/L ALT (14-63) IU/L Alkaline Phosphatase (46-116) U/L Troponin I < 0.050 (0.000-0.056) ng/mL B-Natriuretic Peptide (<100) PG/ML Total Protein (6.4-8.2) g/dL Albumin (3.4-5.0) g/dL Globulin (2.6-4.0) g/dL Albumin/Globulin Ratio (0.9-1.6) Lipase (73-393) U/L Urine Color Urine Appearance Urine pH (5.0-8.0) Ur Specific [place] (1.001-1.035) Urine Protein (NEGATIVE) mg/dL Urine Glucose (UA) (NEGATIVE) mg/dL Urine Ketones (NEGATIVE) mg/dL Urine Occult Blood (NEGATIVE) Urine Nitrite (NEGATIVE) Urine Bilirubin (NEGATIVE) Urine Urobilinogen (<2.0) EU/dL Ur Leukocyte Esterase (NEGATIVE) U Hyaline Cast (Auto) (0-2/LPF) Urine RBC (0-2/HPF) Urine WBC (0-5/HPF) Ur Epithelial Cells (NONE-FEW) Urine Bacteria (NEGATIVE) Urine Mucus (NONE-MOD) Sree Results Last 24 Hours: Microbiology 02/10/21 16:50 C. difficile Antigen & Toxins A,B - Final Stool / Feces Med Orders - Current: Current Medications Acetaminophen (Acetaminophen 325 Mg Tab) 650 mg PO Q4H PRN PRN Reason: Pain (Mild 1-3)/fever Albuterol/Ipratropium (Albuterol/Ipratropium 3.0-0.5 Mg/3 Ml Neb Soln) 3 ml NEB Q4HRRT PRN PRN Reason: Shortness Of Breath/wheezing Alprazolam (Alprazolam 0.25 Mg Tab) 0.25 mg PO BEDTIME PRN PRN Reason: Insomnia Apixaban (Apixaban 2.5 Mg Tab) 2.5 mg PO BID [facility] Last Admin: 02/11/21 09:07 Dose: 2.5 mg Documented by: Aspirin (Aspirin 81 Mg Tab.Chew) 81 mg PO DAILY [facility] Last Admin: 02/11/21 09:07 Dose: 81 mg Documented by: Calcium Carbonate (Calcium Carbonate/Vitamin D3 1500 Mg-400 Units Tab) 1 tab PO DAILY [facility] Last Admin: 02/11/21 09:07 Dose: 1 tab Documented by: Cholecalciferol (Cholecalciferol (Vitamin D3) 25 Mcg Tab) 25 mcg PO DAILY [facility] Last Admin: 02/11/21 09:07 Dose: 25 mcg Documented by: Diltiazem HCl (Diltiazem 25 Mg/5 Ml Sdv) 20 mg IVPUSH Q6H PRN PRN Reason: Tachycardia Diltiazem HCl (Diltiazem 120 Mg Cap.Cd) 120 mg PO DAILY [facility] Last Admin: 02/11/21 08:18 Dose: 120 mg Documented by: Diltiazem HCl (Diltiazem Ir 60 Mg Tab) 60 mg PO ONETIME PRN PRN Reason: Tachycardia Last Admin: 02/11/21 00:48 Dose: 60 mg Documented by: Pantoprazole Sodium 40 mg/ (Sodium Chloride) 10 mls @ 300 mls/hr IV DAILY [facility] Last Admin: 02/11/21 08:13 Dose: 300 mls/hr Documented by: Levofloxacin/Dextrose 750 mg/ (Premix) 150 mls @ 100 mls/hr IV Q48H [facility] Lactated Ringer's (Ringers, Lactated) 1,000 mls @ 125 mls/hr IV ASDIRECTED [facility] Last Admin: 02/11/21 08:13 Dose: 125 mls/hr Documented by: Magnesium Sulfate 2 gm/ Premix 50 mls @ 12.5 mls/hr IV ONETIME ONE Stop: 02/11/21 12:45 Last Admin: 02/11/21 09:21 Dose: 12.5 mls/hr Documented by: Metronidazole 500 mg/ Premix 100 mls @ 100 mls/hr IV QID [facility] Lorazepam (Lorazepam 2 Mg/Ml Sdv) 0.5 mg IVPUSH ONETIME PRN PRN Reason: If Pt can't still sleep Multivitamins/Minerals/Vitamin C (Multivitamin Tab) 1 tab PO DAILY [facility] Last Admin: 02/11/21 09:07 Dose: 1 tab Documented by: Ondansetron HCl (Ondansetron 4 Mg/2 Ml Sdv) 4 mg IVPUSH Q4H PRN PRN Reason: Nausea/Vomiting Discontinued Medications Alprazolam (Alprazolam 0.25 Mg Tab) 0.25 mg PO ASDIRECTED [facility] Last Admin: 02/10/21 22:13 Dose: 0.25 mg Documented by: Diltiazem HCl (Diltiazem 25 Mg/5 Ml Sdv) 10 mg IVPUSH ONETIME ONE Stop: 02/10/21 14:44 Last Admin: 02/10/21 14:51 Dose: 10 mg Documented by: Diltiazem HCl (Diltiazem 120 Mg Cap.Cd) 120 mg PO ONETIME ONE Stop: 02/10/21 14:48 Diltiazem HCl (Diltiazem 120 Mg Cap.Cd) 60 mg PO ONETIME ONE Stop: 02/10/21 15:22 Last Admin: 02/10/21 17:06 Dose: Not Given Documented by: Diltiazem HCl (Diltiazem Ir 60 Mg Tab) Confirm Administered Dose 60 mg .ROUTE .S TK-MED ONE Stop: 02/10/21 16:58 Last Admin: 02/10/21 17:06 Dose: Not Given Documented by: Diltiazem HCl (Diltiazem Ir 60 Mg Tab) 60 mg PO ONETIME ONE Stop: 02/10/21 17:03 Last Admin: 02/10/21 17:06 Dose: 60 mg Documented by: Diltiazem HCl (Diltiazem 180 Mg Cap.Cd) 120 mg PO DAILY [facility] Heparin Sodium (Porcine) (Heparin Sodium 5,000 Units/Ml Vial) 5,000 units SUBCUT Q8H [facility] Last Admin: 02/10/21 19:58 Dose: 5,000 units Documented by: Sodium Chloride (Normal Saline) 1,000 mls @ 999 mls/hr IV BOLUS ONE Stop: 02/10/21 15:17 Last Admin: 02/10/21 14:27 Dose: 999 mls/hr Documented by: Sodium Chloride (Normal Saline) 1,000 mls @ 90 mls/hr IV STAT ONE Stop: 02/11/21 01:43 Last Infusion: 02/10/21 18:58 Dose: 90 mls/hr Documented by: Lactated Ringer's (Ringers, Lactated) 1,000 mls @ 125 mls/hr IV ASDIRECTED [facility] Last Infusion: 02/10/21 23:35 Dose: 125 mls/hr Documented by: Levofloxacin/Dextrose 750 mg/ (Premix) 150 mls @ 100 mls/hr IV Q24H [facility] Last Admin: 02/10/21 19:59 Dose: 100 mls/hr Documented by: Lactated Ringer's (Ringers, Lactated) 1,000 mls @ 999 mls/hr IV BOLUS ONE Stop: 02/10/21 23:00 Last Admin: 02/10/21 22:14 Dose: 999 mls/hr Documented by: Metronidazole 500 mg/ Premix 100 mls @ 100 mls/hr IV QID [facility] Potassium Chloride (Potassium Chloride 20 Meq Tab.Er) 40 meq PO ONETIME ONE Stop: 02/10/21 19:17 Last Admin: 02/10/21 19:58 Dose: 40 meq Documented by: Sodium Phosphate (Phosphorus #1 250 Mg Tab) 250 mg PO ONETIME ONE Stop: 02/11/21 08:47 Last Admin: 02/11/21 09:21 Dose: 250 mg Documented by: - Exam General: Alert, Oriented, Cooperative, No Acute Distress Neck: Supple Lungs: Clear to Auscultation, Normal Respiratory Effort Cardiovascular: Regular Rate, Irregular Rhythm GI/Abdominal Exam: Normal Bowel Sounds, Soft, Non-Tender - Patient Data Lab Results Last 24 hrs: Laboratory Results - last 24 hr 02/10/21 02/10/21 02/10/21 Range/Units 14:30 14:30 14:30 WBC 8.59 (4.0-11.0) K/uL RBC 4.58 (4.30-5.90) M/uL Hgb 15.3 (12.0-16.0) g/dL Hct 43.8 (36.0-46.0) % MCV 95.6 (80.0-98.0) fL MCH 33.4 H (27.0-32.0) pg MCHC 34.9 (31.0-37.0) g/dL RDW Std Deviation 48.1 (28.0-62.0) fl RDW Coeff of Bubba 14 (11.0-15.0) % Plt Count 234 (150-400) K/uL MPV 11.10 (7.40-12.00) fL Neut % (Auto) 81.7 H (48.0-80.0) % Lymph % (Auto) 10.1 L (16.0-40.0) % [place] % (Auto) 7.3 (0.0-15.0) % Eos % (Auto) 0.8 (0.0-7.0) % Baso % (Auto) 0.1 (0.0-1.5) % Neut # (Auto) 7.0 H (1.4-5.7) K/uL Lymph # (Auto) 0.9 (0.6-2.4) K/uL [place] # (Auto) 0.6 (0.0-0.8) K/uL Eos # (Auto) 0.1 (0.0-0.7) K/uL Baso # (Auto) 0.0 (0.0-0.1) K/uL D-Dimer, Quantitative (0.0-0.50) mg/L FEU Sodium 141 (136-145) mmol/L Potassium 3.3 L (3.5-5.1) mmol/L Chloride 108 H (98-107) mmol/L Carbon Dioxide 21.2 (21.0-32.0) mmol/L BUN 26 H (7.0-18.0) mg/dL Creatinine 1.8 H (0.6-1.0) mg/dL Est Cr Clr Drug Dosing 22.49 mL/min Estimated GFR (MDRD) 27.3 ml/min Glucose 172 H (74-106) mg/dL Calcium 8.7 (8.5-10.1) mg/dL Phosphorus (2.6-4.7) mg/dL Magnesium (1.8-2.4) mg/dL Total Bilirubin 1.0 (0.2-1.0) mg/dL AST 26 (15-37) IU/L ALT 31 (14-63) IU/L Alkaline Phosphatase 71 (46-116) U/L Troponin I < 0.050 (0.000-0.056) ng/mL B-Natriuretic Peptide (<100) PG/ML Total Protein 6.5 (6.4-8.2) g/dL Albumin 3.4 (3.4-5.0) g/dL Globulin 3.1 (2.6-4.0) g/dL Albumin/Globulin Ratio 1.1 (0.9-1.6) Lipase 125 (73-393) U/L Urine Color Urine Appearance Urine pH (5.0-8.0) Ur Specific [place] (1.001-1.035) Urine Protein (NEGATIVE) mg/dL Urine Glucose (UA) (NEGATIVE) mg/dL Urine Ketones (NEGATIVE) mg/dL Urine Occult Blood (NEGATIVE) Urine Nitrite (NEGATIVE) Urine Bilirubin (NEGATIVE) Urine Urobilinogen (<2.0) EU/dL Ur Leukocyte Esterase (NEGATIVE) U Hyaline Cast (Auto) (0-2/LPF) Urine RBC (0-2/HPF) Urine WBC (0-5/HPF) Ur Epithelial Cells (NONE-FEW) Urine Bacteria (NEGATIVE) Urine Mucus (NONE-MOD) 02/10/21 02/10/21 02/10/21 Range/Units 14:30 14:30 14:30 WBC (4.0-11.0) K/uL RBC (4.30-5.90) M/uL Hgb (12.0-16.0) g/dL Hct (36.0-46.0) % MCV (80.0-98.0) fL MCH (27.0-32.0) pg MCHC (31.0-37.0) g/dL RDW Std Deviation (28.0-62.0) fl RDW Coeff of Bubba (11.0-15.0) % Plt Count (150-400) K/uL MPV (7.40-12.00) fL Neut % (Auto) (48.0-80.0) % Lymph % (Auto) (16.0-40.0) % [place] % (Auto) (0.0-15.0) % Eos % (Auto) (0.0-7.0) % Baso % (Auto) (0.0-1.5) % Neut # (Auto) (1.4-5.7) K/uL Lymph # (Auto) (0.6-2.4) K/uL [place] # (Auto) (0.0-0.8) K/uL Eos # (Auto) (0.0-0.7) K/uL Baso # (Auto) (0.0-0.1) K/uL D-Dimer, Quantitative 0.54 H (0.0-0.50) mg/L FEU Sodium (136-145) mmol/L Potassium (3.5-5.1) mmol/L Chloride (98-107) mmol/L Carbon Dioxide (21.0-32.0) mmol/L BUN (7.0-18.0) mg/dL Creatinine (0.6-1.0) mg/dL Est Cr Clr Drug Dosing mL/min Estimated GFR (MDRD) ml/min Glucose (74-106) mg/dL Calcium (8.5-10.1) mg/dL Phosphorus (2.6-4.7) mg/dL Magnesium 2.1 (1.8-2.4) mg/dL Total Bilirubin (0.2-1.0) mg/dL AST (15-37) IU/L ALT (14-63) IU/L Alkaline Phosphatase (46-116) U/L Troponin I (0.000-0.056) ng/mL B-Natriuretic Peptide 295 H (<100) PG/ML Total Protein (6.4-8.2) g/dL Albumin (3.4-5.0) g/dL Globulin (2.6-4.0) g/dL Albumin/Globulin Ratio (0.9-1.6) Lipase (73-393) U/L Urine Color Urine Appearance Urine pH (5.0-8.0) Ur Specific [place] (1.001-1.035) Urine Protein (NEGATIVE) mg/dL Urine Glucose (UA) (NEGATIVE) mg/dL Urine Ketones (NEGATIVE) mg/dL Urine Occult Blood (NEGATIVE) Urine Nitrite (NEGATIVE) Urine Bilirubin (NEGATIVE) Urine Urobilinogen (<2.0) EU/dL Ur Leukocyte Esterase (NEGATIVE) U Hyaline Cast (Auto) (0-2/LPF) Urine RBC (0-2/HPF) Urine WBC (0-5/HPF) Ur Epithelial Cells (NONE-FEW) Urine Bacteria (NEGATIVE) Urine Mucus (NONE-MOD) 02/10/21 02/11/21 02/11/21 Range/Units 16:50 05:15 05:15 WBC 4.85 (4.0-11.0) K/uL RBC 3.60 L (4.30-5.90) M/uL Hgb 12.1 (12.0-16.0) g/dL Hct 34.5 L (36.0-46.0) % MCV 95.8 (80.0-98.0) fL MCH 33.6 H (27.0-32.0) pg MCHC 35.1 (31.0-37.0) g/dL RDW Std Deviation 47.1 (28.0-62.0) fl RDW Coeff of Bubba 14 (11.0-15.0) % Plt Count 153 (150-400) K/uL MPV 10.90 (7.40-12.00) fL Neut % (Auto) 71.3 (48.0-80.0) % Lymph % (Auto) 17.1 (16.0-40.0) % [place] % (Auto) 9.3 (0.0-15.0) % Eos % (Auto) 2.1 (0.0-7.0) % Baso % (Auto) 0.2 (0.0-1.5) % Neut # (Auto) 3.5 (1.4-5.7) K/uL Lymph # (Auto) 0.8 (0.6-2.4) K/uL [place] # (Auto) 0.5 (0.0-0.8) K/uL Eos # (Auto) 0.1 (0.0-0.7) K/uL Baso # (Auto) 0.0 (0.0-0.1) K/uL D-Dimer, Quantitative (0.0-0.50) mg/L FEU Sodium 142 (136-145) mmol/L Potassium 4.2 (3.5-5.1) mmol/L Chloride 111 H (98-107) mmol/L Carbon Dioxide 22.4 (21.0-32.0) mmol/L BUN 18 (7.0-18.0) mg/dL Creatinine 1.2 H (0.6-1.0) mg/dL Est Cr Clr Drug Dosing 35.33 mL/min Estimated GFR (MDRD) 43.6 ml/min Glucose 82 (74-106) mg/dL Calcium 7.8 L (8.5-10.1) mg/dL Phosphorus 2.4 L (2.6-4.7) mg/dL Magnesium 1.6 L (1.8-2.4) mg/dL Total Bilirubin (0.2-1.0) mg/dL AST (15-37) IU/L ALT (14-63) IU/L Alkaline Phosphatase (46-116) U/L Troponin I (0.000-0.056) ng/mL B-Natriuretic Peptide (<100) PG/ML Total Protein (6.4-8.2) g/dL Albumin (3.4-5.0) g/dL Globulin (2.6-4.0) g/dL Albumin/Globulin Ratio (0.9-1.6) Lipase (73-393) U/L Urine Color YELLOW Urine Appearance HAZY Urine pH 6.0 (5.0-8.0) Ur Specific [place] 1.025 (1.001-1.035) Urine Protein TRACE H (NEGATIVE) mg/dL Urine Glucose (UA) NEGATIVE (NEGATIVE) mg/dL Urine Ketones NEGATIVE (NEGATIVE) mg/dL Urine Occult Blood TRACE-LYSED H (NEGATIVE) Urine Nitrite NEGATIVE (NEGATIVE) Urine Bilirubin NEGATIVE (NEGATIVE) Urine Urobilinogen 0.2 (<2.0) EU/dL Ur Leukocyte Esterase NEGATIVE (NEGATIVE) U Hyaline Cast (Auto) 3-6 (0-2/LPF) Urine RBC 0-3 (0-2/HPF) Urine WBC 0-2 (0-5/HPF) Ur Epithelial Cells OCCASIONAL (NONE-FEW) Urine Bacteria FEW (NEGATIVE) Urine Mucus LIGHT (NONE-MOD) 02/11/21 Range/Units 05:15 WBC (4.0-11.0) K/uL RBC (4.30-5.90) M/uL Hgb (12.0-16.0) g/dL Hct (36.0-46.0) % MCV (80.0-98.0) fL MCH (27.0-32.0) pg MCHC (31.0-37.0) g/dL RDW Std Deviation (28.0-62.0) fl RDW Coeff of Bubba (11.0-15.0) % Plt Count (150-400) K/uL MPV (7.40-12.00) fL Neut % (Auto) (48.0-80.0) % Lymph % (Auto) (16.0-40.0) % [place] % (Auto) (0.0-15.0) % Eos % (Auto) (0.0-7.0) % Baso % (Auto) (0.0-1.5) % Neut # (Auto) (1.4-5.7) K/uL Lymph # (Auto) (0.6-2.4) K/uL [place] # (Auto) (0.0-0.8) K/uL Eos # (Auto) (0.0-0.7) K/uL Baso # (Auto) (0.0-0.1) K/uL D-Dimer, Quantitative (0.0-0.50) mg/L FEU Sodium (136-145) mmol/L Potassium (3.5-5.1) mmol/L Chloride (98-107) mmol/L Carbon Dioxide (21.0-32.0) mmol/L BUN (7.0-18.0) mg/dL Creatinine (0.6-1.0) mg/dL Est Cr Clr Drug Dosing mL/min Estimated GFR (MDRD) ml/min Glucose (74-106) mg/dL Calcium (8.5-10.1) mg/dL Phosphorus (2.6-4.7) mg/dL Magnesium (1.8-2.4) mg/dL Total Bilirubin (0.2-1.0) mg/dL AST (15-37) IU/L ALT (14-63) IU/L Alkaline Phosphatase (46-116) U/L Troponin I < 0.050 (0.000-0.056) ng/mL B-Natriuretic Peptide (<100) PG/ML Total Protein (6.4-8.2) g/dL Albumin (3.4-5.0) g/dL Globulin (2.6-4.0) g/dL Albumin/Globulin Ratio (0.9-1.6) Lipase (73-393) U/L Urine Color Urine Appearance Urine pH (5.0-8.0) Ur Specific [place] (1.001-1.035) Urine Protein (NEGATIVE) mg/dL Urine Glucose (UA) (NEGATIVE) mg/dL Urine Ketones (NEGATIVE) mg/dL Urine Occult Blood (NEGATIVE) Urine Nitrite (NEGATIVE) Urine Bilirubin (NEGATIVE) Urine Urobilinogen (<2.0) EU/dL Ur Leukocyte Esterase (NEGATIVE) U Hyaline Cast (Auto) (0-2/LPF) Urine RBC (0-2/HPF) Urine WBC (0-5/HPF) Ur Epithelial Cells (NONE-FEW) Urine Bacteria (NEGATIVE) Urine Mucus (NONE-MOD) Result Diagrams: 02/11/21 05:15 02/11/21 05:15 Sree Results Last 24 hrs: Microbiology 02/10/21 16:50 C. difficile Antigen & Toxins A,B - Final Stool / Feces Sepsis Event Note - Evaluation Sepsis Screening Result: No Definite Risk - Focused Exam Vital Signs: Vital Signs Temp Pulse Pulse Resp BP BP Pulse Ox 02/11/21 09:00 37.4 C 103 H 18 104/64 97 02/11/21 08:18 103 H 104/68 02/11/21 05:00 36.4 C 95 17 102/69 96 02/11/21 00:34 117 H 108/60 - Problem List Review Problem List Initiated/Reviewed/Updated: Yes - My Orders Last 24 Hours: My Active Orders 02/10/21 Dinner Heart Healthy Diet [DIET] 02/10/21 16:50 CAMPYLOBACTER AG BY IMMUNO [MREF] Routine GIARDIA ANTIGEN BY IMMUNOASSAY [MREF] Routine 02/10/21 19:06 Ambulate [RC] ASDIRECTED Acetaminophen [TylenoL] 650 mg PO Q4H PRN Albuterol/Ipratropium [DuoNeb 3.0-0.5 MG/3 ML] 3 ml NEB Q4HRRT PRN Ondansetron [Zofran] 4 mg IVPUSH Q4H PRN 02/10/21 19:09 Antiembolic Devices [RC] PER UNIT ROUTINE Oxygen Therapy [RC] PRN Pulse Oximetry [RC] PRN VTE/DVT Education [RC] PER UNIT ROUTINE Vital Signs [RC] Q4H Sequential Compression Device [OM.PC] Per Unit Routine 02/10/21 19:11 RT Aerosol Therapy [RC] ASDIRECTED 02/10/21 19:13 Telemetry Monitoring [Cardiac Monitoring] [RC] Q8H 02/10/21 21:58 Diltiazem 20 mg IVPUSH Q6H PRN 02/10/21 23:02 LORazepam [Ativan] 0.5 mg IVPUSH ONETIME PRN 02/10/21 23:04 Diltiazem IR [Cardizem] 60 mg PO ONETIME PRN 02/10/21 23:15 Lactated Ringers [Ringers, Lactated] 1,000 ml IV ASDIRECTED 02/11/21 00:00 Apixaban [Eliquis] 2.5 mg PO BID 02/11/21 08:46 Magnesium Sulfate/Water [Magnesium Sulfate in Water 2 GM/50 ML] 2 gm Premix Bag 1 bag IV ONETIME 02/11/21 09:00 Aspirin 81 mg PO DAILY Calcium Carbonate/Vitamin D3 [Caltrate 600+D 1500 MG-400 Units] 1 tab PO DAILY Cholecalciferol (Vitamin D3) [Vitamin D3] 25 mcg PO DAILY Diltiazem [Cardizem CD] 120 mg PO DAILY Multivitamins [Tab-A-Jasmina] 1 tab PO DAILY Pantoprazole [ProTONIX IV] 40 mg Sodium Chloride 0.9% [Normal Saline] 10 ml IV DAILY 02/11/21 11:47 Code Status [Resuscitation Status] Routine 02/11/21 12:03 CRYPTOSPORIDIUM BY IMMUNOASSAY [MREF] Routine 02/11/21 12:06 metroNIDAZOLE/Normal Saline [Flagyl in NS 500 MG/100 ML] 500 mg Premix Bag 1 bag IV QID 02/11/21 21:00 ALPRAZolam [Xanax] 0.25 mg PO BEDTIME PRN 02/12/21 18:00 Levofloxacin/Dextrose 5%-Water [Levaquin in D5W 750 MG/150 ML] 750 mg Premix Bag 1 bag IV Q48H - Plan Plan:: 75-year-old female admitted for nausea vomiting diarrhea, pneumonia and A. fib RVR Continue IV hydration Continue IV antibiotics for pneumonia and gastroenteritis Continue to monitor and replete electrolytes Patient intermittently has elevated heart rate when ambulating or exerting so might have to increase the dose of Cardizem We will consider starting patient on amiodarone for rhythm control Continue anticoagulation, watch for bleeding DuoNebs as needed Oxygen as needed
[2021-02-11] MEDS: metroNIDAZOLE/Normal Saline 500 MG in Premix Bag 1 BAG IV SCH ×2 (12:48→17:39)
[2021-02-11] MEDS: Diltiazem 25 MG/5 ML SDV IVPUSH PRN (13:14)
[2021-02-11] MEDS ORDERED: Lactated Ringers 1,000 ML IV ONE (13:55)
[2021-02-11] MEDS ORDERED: Diltiazem IR 60 MG Tab PO ONE (14:19)
[2021-02-11] MEDS ORDERED: metroNIDAZOLE/Normal Saline 500 MG in Premix Bag 1 BAG IV SCH (18:00)
[2021-02-11] MEDS ORDERED: ALPRAZolam 0.25 MG Tab PO PRN (21:00)
[2021-02-12] MEDS: metroNIDAZOLE/Normal Saline 500 MG in Premix Bag 1 BAG IV SCH ×4 (01:21→18:08)
[2021-02-12] MEDS: Lactated Ringers 1,000 ML IV SCH (02:25)
[2021-02-12 05:52] LABS: CARBON DIOXIDE,CO2 26.1 mmol/L (21.0-32.0); POTASSIUM,K 3.4 mmol/L (3.5-5.1)
[2021-02-12] MEDS: Aspirin 81 MG Tab.Chew PO SCH (08:32)
[2021-02-12] MEDS: Cholecalciferol (Vitamin D3) 25 MCG Tab PO SCH (08:32)
[2021-02-12] MEDS: Pantoprazole 40 MG in Sodium Chloride 0.9% 10 ML IV SCH (08:33)
[2021-02-12] MEDS: Calcium Carbonate/Vitamin D3 1500 MG-400 Units Tab PO SCH (08:33)
[2021-02-12] MEDS: Multivitamin Tab PO SCH (08:33)
[2021-02-12] MEDS: Apixaban 2.5 MG Tab PO SCH ×2 (08:33→20:40)
[2021-02-12] MEDS ORDERED: Diltiazem 180 MG Cap.CD PO SCH (09:00)
[2021-02-12] MEDS: Diltiazem 25 MG/5 ML SDV IVPUSH PRN (09:14)
--- NOTE | 2021-02-12 09:25 | PCM.PN ---
<Nidia Armstrong - Last Filed: 02/12/21 11:02> - General Info Date of Service: 02/12/21 Admission Dx/Problem (Free Text): Admission Diagnosis/Problem Admission Diagnosis/Problem Dehydration Subjective Update: Patient seen at bedside, resting comfortably, states she had a good night sleep and feels much better today diarrhea has subsided, however continues to be dizzy while ambulating, she tolerated her breakfast well. Was found to have heart rate 150s to 160s sustained therefore given Cardizem. Denies any palpitations, shortness of breath or chest pain. Functional Status: Reports: Tolerating Diet, Ambulating, Urinating - Review of Systems General: Reports: No Symptoms HEENT: Reports: No Symptoms Pulmonary: Reports: No Symptoms Cardiovascular: Reports: No Symptoms Gastrointestinal: Reports: No Symptoms Genitourinary: Reports: No Symptoms Musculoskeletal: Reports: No Symptoms Skin: Reports: No Symptoms Neurological: Reports: No Symptoms Psychiatric: Reports: No Symptoms - Patient Data Vitals - Most Recent: Last Vital Signs Temp 98 F 02/12/21 04:00 Pulse 95 02/12/21 04:00 Resp 20 02/12/21 04:00 BP 126/75 02/12/21 04:00 Pulse Ox 96 02/12/21 04:00 Weight - Most Recent: 57.606 kg I&O - Last 24 Hours: Intake & Output 02/11/21 02/12/21 02/12/21 22:59 06:59 14:59 Intake Total 2690 2087 Output Total 1150 1150 Balance 1540 937 Lab Results Last 24 Hours: Laboratory Results - last 24 hr 02/11/21 02/12/21 02/12/21 Range/Units 05:15 05:15 05:15 WBC 3.49 L (4.0-11.0) K/uL RBC 3.56 L (4.30-5.90) M/uL Hgb 12.0 (12.0-16.0) g/dL Hct 34.0 L (36.0-46.0) % MCV 95.5 (80.0-98.0) fL MCH 33.7 H (27.0-32.0) pg MCHC 35.3 (31.0-37.0) g/dL RDW Std Deviation 46.1 (28.0-62.0) fl RDW Coeff of Bubba 14 (11.0-15.0) % Plt Count 121 L (150-400) K/uL MPV 11.00 (7.40-12.00) fL Neut % (Auto) 60.8 (48.0-80.0) % Lymph % (Auto) 20.3 (16.0-40.0) % Bailey % (Auto) 16.0 H (0.0-15.0) % Eos % (Auto) 2.6 (0.0-7.0) % Baso % (Auto) 0.3 (0.0-1.5) % Neut # (Auto) 2.1 (1.4-5.7) K/uL Lymph # (Auto) 0.7 (0.6-2.4) K/uL Bailey # (Auto) 0.6 (0.0-0.8) K/uL Eos # (Auto) 0.1 (0.0-0.7) K/uL Baso # (Auto) 0.0 (0.0-0.1) K/uL Sodium 144 (136-145) mmol/L Potassium 3.4 L (3.5-5.1) mmol/L Chloride 112 H (98-107) mmol/L Carbon Dioxide 26.1 (21.0-32.0) mmol/L BUN 11 (7.0-18.0) mg/dL Creatinine 1.1 H (0.6-1.0) mg/dL Est Cr Clr Drug Dosing 38.54 mL/min Estimated GFR (MDRD) 48.2 ml/min Glucose 85 (74-106) mg/dL Calcium 7.0 L (8.5-10.1) mg/dL Phosphorus 2.8 (2.6-4.7) mg/dL Magnesium 1.7 L (1.8-2.4) mg/dL Troponin I < 0.050 (0.000-0.056) ng/mL Sree Results Last 24 Hours: Microbiology 02/10/21 16:50 Campylobacter Antigen Assay - Final Stool / Feces 02/10/21 16:50 Shiga Toxin I & II - Final Stool / Feces Med Orders - Current: Current Medications Acetaminophen (Acetaminophen 325 Mg Tab) 650 mg PO Q4H PRN PRN Reason: Pain (Mild 1-3)/fever Albuterol/Ipratropium (Albuterol/Ipratropium 3.0-0.5 Mg/3 Ml Neb Soln) 3 ml NEB Q4HRRT PRN PRN Reason: Shortness Of Breath/wheezing Alprazolam (Alprazolam 0.25 Mg Tab) 0.25 mg PO BEDTIME PRN PRN Reason: Insomnia Last Admin: 02/11/21 21:59 Dose: 0.25 mg Documented by: Apixaban (Apixaban 2.5 Mg Tab) 2.5 mg PO BID [facility] Last Admin: 02/12/21 08:33 Dose: 2.5 mg Documented by: Aspirin (Aspirin 81 Mg Tab.Chew) 81 mg PO DAILY [facility] Last Admin: 02/12/21 08:32 Dose: 81 mg Documented by: Calcium Carbonate (Calcium Carbonate/Vitamin D3 1500 Mg-400 Units Tab) 1 tab PO DAILY [facility] Last Admin: 02/12/21 08:33 Dose: 1 tab Documented by: Cholecalciferol (Cholecalciferol (Vitamin D3) 25 Mcg Tab) 25 mcg PO DAILY [facility] Last Admin: 02/12/21 08:32 Dose: 25 mcg Documented by: Diltiazem HCl (Diltiazem 25 Mg/5 Ml Sdv) 20 mg IVPUSH Q6H PRN PRN Reason: Tachycardia Last Admin: 02/12/21 09:14 Dose: 20 mg Documented by: Diltiazem HCl (Diltiazem Ir 60 Mg Tab) 60 mg PO ONETIME PRN PRN Reason: Tachycardia Last Admin: 02/11/21 00:48 Dose: 60 mg Documented by: Diltiazem HCl (Diltiazem 180 Mg Cap.Cd) 180 mg PO DAILY [facility] Last Admin: 02/12/21 08:32 Dose: 180 mg Documented by: Pantoprazole Sodium 40 mg/ (Sodium Chloride) 10 mls @ 300 mls/hr IV DAILY [facility] Last Admin: 02/12/21 08:33 Dose: 300 mls/hr Documented by: Levofloxacin/Dextrose 750 mg/ (Premix) 150 mls @ 100 mls/hr IV Q48H [facility] Lactated Ringer's (Ringers, Lactated) 1,000 mls @ 125 mls/hr IV ASDIRECTED [facility] Last Admin: 02/12/21 02:25 Dose: 125 mls/hr Documented by: Metronidazole 500 mg/ Premix 100 mls @ 100 mls/hr IV QID [facility] Last Admin: 02/12/21 06:22 Dose: 100 mls/hr Documented by: Lorazepam (Lorazepam 2 Mg/Ml Sdv) 0.5 mg IVPUSH ONETIME PRN PRN Reason: If Pt can't still sleep Multivitamins/Minerals/Vitamin C (Multivitamin Tab) 1 tab PO DAILY [facility] Last Admin: 02/12/21 08:33 Dose: 1 tab Documented by: Ondansetron HCl (Ondansetron 4 Mg/2 Ml Sdv) 4 mg IVPUSH Q4H PRN PRN Reason: Nausea/Vomiting Discontinued Medications Alprazolam (Alprazolam 0.25 Mg Tab) 0.25 mg PO ASDIRECTED [facility] Last Admin: 02/10/21 22:13 Dose: 0.25 mg Documented by: Diltiazem HCl (Diltiazem 25 Mg/5 Ml Sdv) 10 mg IVPUSH ONETIME ONE Stop: 02/10/21 14:44 Last Admin: 02/10/21 14:51 Dose: 10 mg Documented by: Diltiazem HCl (Diltiazem 120 Mg Cap.Cd) 120 mg PO ONETIME ONE Stop: 02/10/21 14:48 Diltiazem HCl (Diltiazem 120 Mg Cap.Cd) 60 mg PO ONETIME ONE Stop: 02/10/21 15:22 Last Admin: 02/10/21 17:06 Dose: Not Given Documented by: Diltiazem HCl (Diltiazem Ir 60 Mg Tab) Confirm Administered Dose 60 mg .ROUTE .STK-MED ONE Stop: 02/10/21 16:58 Last Admin: 02/10/21 17:06 Dose: Not Given Documented by: Diltiazem HCl (Diltiazem Ir 60 Mg Tab) 60 mg PO ONETIME ONE Stop: 02/10/21 17:03 Last Admin: 02/10/21 17:06 Dose: 60 mg Documented by: Diltiazem HCl (Diltiazem 180 Mg Cap.Cd) 120 mg PO DAILY [facility] Diltiazem HCl (Diltiazem 120 Mg Cap.Cd) 120 mg PO DAILY [facility] Last Admin: 02/11/21 08:18 Dose: 120 mg Documented by: Diltiazem HCl (Diltiazem Ir 60 Mg Tab) 60 mg PO ONETIME ONE Stop: 02/11/21 14:20 Last Admin: 02/11/21 14:33 Dose: 60 mg Documented by: Heparin Sodium (Porcine) (Heparin Sodium 5,000 Units/Ml Vial) 5,000 units SUBCUT Q8H [facility] Last Admin: 02/10/21 19:58 Dose: 5,000 units Documented by: Sodium Chloride (Normal Saline) 1,000 mls @ 999 mls/hr IV BOLUS ONE Stop: 02/10/21 15:17 Last Admin: 02/10/21 14:27 Dose: 999 mls/hr Documented by: Sodium Chloride (Normal Saline) 1,000 mls @ 90 mls/hr IV STAT ONE Stop: 02/11/21 01:43 Last Infusion: 02/10/21 18:58 Dose: 90 mls/hr Documented by: Lactated Ringer's (Ringers, Lactated) 1,000 mls @ 125 mls/hr IV ASDIRECTED [facility] Last Infusion: 02/10/21 23:35 Dose: 125 mls/hr Documented by: Levofloxacin/Dextrose 750 mg/ (Premix) 150 mls @ 100 mls/hr IV Q24H [facility] Last Admin: 02/10/21 19:59 Dose: 100 mls/hr Documented by: Lactated Ringer's (Ringers, Lactated) 1,000 mls @ 999 mls/hr IV BOLUS ONE Stop: 02/10/21 23:00 Last Admin: 02/10/21 22:14 Dose: 999 mls/hr Documented by: Magnesium Sulfate 2 gm/ Premix 50 mls @ 12.5 mls/hr IV ONETIME ONE Stop: 02/11/21 12:45 Last Admin: 02/11/21 09:21 Dose: 12.5 mls/hr Documented by: Metronidazole 500 mg/ Premix 100 mls @ 100 mls/hr IV QID [facility] Lactated Ringer's (Ringers, Lactated) 1,000 mls @ 999 mls/hr IV .BOLUS ONE Stop: 02/11/21 14:55 Last Admin: 02/11/21 14:33 Dose: 999 mls/hr Documented by: Potassium Chloride (Potassium Chloride 20 Meq Tab.Er) 40 meq PO ONETIME ONE Stop: 02/10/21 19:17 Last Admin: 02/10/21 19:58 Dose: 40 meq Documented by: Sodium Phosphate (Phosphorus #1 250 Mg Tab) 250 mg PO ONETIME ONE Stop: 02/11/21 08:47 Last Admin: 02/11/21 09:21 Dose: 250 mg Documented by: - Exam General: Alert, Oriented, Cooperative, No Acute Distress HEENT: Pupils Equal, Pupils Reactive, EOMI, Mucous Membr. Moist/Goss Neck: Supple Lungs: Clear to Auscultation, Normal Respiratory Effort Cardiovascular: Regular Rate, Regular Rhythm GI/Abdominal Exam: Normal Bowel Sounds, Soft, Non-Tender, No Organomegaly, No Distention Extremities: Normal Inspection, Normal Range of Motion, Non-Tender, No Pedal Edema, Normal Capillary Refill Peripheral Pulses: 2+: Carotid (L), Carotid (R), Dorsalis Pedis (L), Dorsalis Pedis (R) Skin: Warm, Dry, Intact Neurological: No New Focal Deficit Psy/Mental Status: Alert, Normal Affect, Normal Mood - Patient Data Lab Results Last 24 hrs: Laboratory Results - last 24 hr 02/11/21 02/12/21 02/12/21 Range/Units 05:15 05:15 05:15 WBC 3.49 L (4.0-11.0) K/uL RBC 3.56 L (4.30-5.90) M/uL Hgb 12.0 (12.0-16.0) g/dL Hct 34.0 L (36.0-46.0) % MCV 95.5 (80.0-98.0) fL MCH 33.7 H (27.0-32.0) pg MCHC 35.3 (31.0-37.0) g/dL RDW Std Deviation 46.1 (28.0-62.0) fl RDW Coeff of Bubba 14 (11.0-15.0) % Plt Count 121 L (150-400) K/uL MPV 11.00 (7.40-12.00) fL Neut % (Auto) 60.8 (48.0-80.0) % Lymph % (Auto) 20.3 (16.0-40.0) % Bailey % (Auto) 16.0 H (0.0-15.0) % Eos % (Auto) 2.6 (0.0-7.0) % Baso % (Auto) 0.3 (0.0-1.5) % Neut # (Auto) 2.1 (1.4-5.7) K/uL Lymph # (Auto) 0.7 (0.6-2.4) K/uL Bailey # (Auto) 0.6 (0.0-0.8) K/uL Eos # (Auto) 0.1 (0.0-0.7) K/uL Baso # (Auto) 0.0 (0.0-0.1) K/uL Sodium 144 (136-145) mmol/L Potassium 3.4 L (3.5-5.1) mmol/L Chloride 112 H (98-107) mmol/L Carbon Dioxide 26.1 (21.0-32.0) mmol/L BUN 11 (7.0-18.0) mg/dL Creatinine 1.1 H (0.6-1.0) mg/dL Est Cr Clr Drug Dosing 38.54 mL/min Estimated GFR (MDRD) 48.2 ml/min Glucose 85 (74-106) mg/dL Calcium 7.0 L (8.5-10.1) mg/dL Phosphorus 2.8 (2.6-4.7) mg/dL Magnesium 1.7 L (1.8-2.4) mg/dL Troponin I < 0.050 (0.000-0.056) ng/mL Result Diagrams: 02/12/21 05:15 02/12/21 05:15 Sree Results Last 24 hrs: Microbiology 02/10/21 16:50 Campylobacter Antigen Assay - Final Stool / Feces 02/10/21 16:50 Shiga Toxin I & II - Final Stool / Feces Sepsis Event Note - Evaluation Sepsis Screening Result: No Definite Risk - Focused Exam Vital Signs: Vital Signs Temp Pulse Resp BP Pulse Ox 02/12/21 04:00 98 F 95 20 126/75 96 02/12/21 01:23 98.1 F 92 19 131/73 95 - Problem List Review Problem List Initiated/Reviewed/Updated: Yes - Plan Plan:: Patient is a 75-year-old female admitted for nausea vomiting diarrhea, pneumonia and A. fib RVR 1. Dehydration secondary to possible gastroenteritis: Afebrile, WBC's within normal limits, C. difficile, Shiga toxin, Campylobacter were all negative. Continue IV hydration LR 125 Continue IV antibiotics for gastroenteritis; Levaquin and metronidazole Continue to monitor and replete electrolytes, will replete potassium 60 mEq and mag 2 g to try maintain potassium and mag 4 and 2 respectively. 2. A. fib RVR: Sustained 150s, given Cardizem, may consider starting amiodarone oral. Continue to monitor via telemetry Continue anticoagulation, watch for bleeding 3. DURAN: Improved: 1.1 from 1.8, continue to hydrate, check daily CMP. GI prophylaxisProtonix 40 DVT prophylaxis patient on home dose of Eliquis secondary to A. fib continue DuoNebs as needed Oxygen as needed <Rosey Pisano - Last Filed: 02/14/21 14:40> - Patient Data Vitals - Most Recent: Last Vital Signs Temp 36.6 C 02/13/21 12:00 Pulse 89 02/13/21 12:00 Resp 18 02/13/21 12:00 BP 139/74 02/13/21 12:00 Pulse Ox 93 L 02/13/21 12:00 Sree Results Last 24 Hours: Microbiology 02/10/21 16:50 Stool Culture - Final Stool / Feces Shiga Toxin I & II - Final 02/11/21 20:30 Cryptosporidium Antigen - Final Stool / Feces 02/10/21 16:50 Cryptosporidium/Giardia - Final Stool / Feces Med Orders - Current: Current Medications Discontinued Medications Acetaminophen (Acetaminophen 325 Mg Tab) 650 mg PO Q4H PRN PRN Reason: Pain (Mild 1-3)/fever Last Admin: 02/13/21 01:43 Dose: 650 mg Documented by: Albuterol/Ipratropium (Albuterol/Ipratropium 3.0-0.5 Mg/3 Ml Neb Soln) 3 ml NEB Q4HRRT PRN PRN Reason: Shortness Of Breath/wheezing Alprazolam (Alprazolam 0.25 Mg Tab) 0.25 mg PO ASDIRECTED [facility] Last Admin: 02/10/21 22:13 Dose: 0.25 mg Documented by: Alprazolam (Alprazolam 0.25 Mg Tab) 0.25 mg PO BEDTIME PRN PRN Reason: Insomnia Last Admin: 02/11/21 21:59 Dose: 0.25 mg Documented by: Apixaban (Apixaban 2.5 Mg Tab) 2.5 mg PO BID [facility] Last Admin: 02/13/21 08:58 Dose: 2.5 mg Documented by: Aspirin (Aspirin 81 Mg Tab.Chew) 81 mg PO DAILY [facility] Last Admin: 02/13/21 08:58 Dose: 81 mg Documented by: Calcium Carbonate (Calcium Carbonate/Vitamin D3 1500 Mg-400 Units Tab) 1 tab PO DAILY [facility] Last Admin: 02/13/21 08:58 Dose: 1 tab Documented by: Cholecalciferol (Cholecalciferol (Vitamin D3) 25 Mcg Tab) 25 mcg PO DAILY [facility] Last Admin: 02/13/21 08:57 Dose: 25 mcg Documented by: Diltiazem HCl (Diltiazem 25 Mg/5 Ml Sdv) 10 mg IVPUSH ONETIME ONE Stop: 02/10/21 14:44 Last Admin: 02/10/21 14:51 Dose: 10 mg Documented by: Diltiazem HCl (Diltiazem 120 Mg Cap.Cd) 120 mg PO ONETIME ONE Stop: 02/10/21 14:48 Diltiazem HCl (Diltiazem 120 Mg Cap.Cd) 60 mg PO ONETIME ONE Stop: 02/10/21 15:22 Last Admin: 02/10/21 17:06 Dose: Not Given Documented by: Diltiazem HCl (Diltiazem Ir 60 Mg Tab) Confirm Administered Dose 60 mg .ROUTE . STK-MED ONE Stop: 02/10/21 16:58 Last Admin: 02/10/21 17:06 Dose: Not Given Documented by: Diltiazem HCl (Diltiazem Ir 60 Mg Tab) 60 mg PO ONETIME ONE Stop: 02/10/21 17:03 Last Admin: 02/10/21 17:06 Dose: 60 mg Documented by: Diltiazem HCl (Diltiazem 180 Mg Cap.Cd) 120 mg PO DAILY [facility] Diltiazem HCl (Diltiazem 25 Mg/5 Ml Sdv) 20 mg IVPUSH Q6H PRN PRN Reason: Tachycardia Last Admin: 02/12/21 09:14 Dose: 20 mg Documented by: Diltiazem HCl (Diltiazem 120 Mg Cap.Cd) 120 mg PO DAILY [facility] Last Admin: 02/11/21 08:18 Dose: 120 mg Documented by: Diltiazem HCl (Diltiazem Ir 60 Mg Tab) 60 mg PO ONETIME PRN PRN Reason: Tachycardia Last Admin: 02/11/21 00:48 Dose: 60 mg Documented by: Diltiazem HCl (Diltiazem Ir 60 Mg Tab) 60 mg PO ONETIME ONE Stop: 02/11/21 14:20 Last Admin: 02/11/21 14:33 Dose: 60 mg Documented by: Diltiazem HCl (Diltiazem 180 Mg Cap.Cd) 180 mg PO DAILY [facility] Last Admin: 02/12/21 08:32 Dose: 180 mg Documented by: Diltiazem HCl (Diltiazem Ir 60 Mg Tab) 60 mg PO Q6H [facility] Last Admin: 02/12/21 14:21 Dose: Not Given Documented by: Diltiazem HCl (Diltiazem Ir 60 Mg Tab) 60 mg PO Q6HR [facility] Last Admin: 02/12/21 15:00 Dose: 60 mg Documented by: Diltiazem HCl (Diltiazem Ir 60 Mg Tab) 60 mg PO Q6H [facility] Last Admin: 02/13/21 08:57 Dose: 60 mg Documented by: Diltiazem HCl (Diltiazem 120 Mg Cap.Cd) 240 mg PO ONETIME ONE Stop: 02/13/21 12:01 Last Admin: 02/13/21 11:32 Dose: 240 mg Documented by: Heparin Sodium (Porcine) (Heparin Sodium 5,000 Units/Ml Vial) 5,000 units SUBCUT Q8H [facility] Last Admin: 02/10/21 19:58 Dose: 5,000 units Documented by: Sodium Chloride (Normal Saline) 1,000 mls @ 999 mls/hr IV BOLUS ONE Stop: 02/10/21 15:17 Last Admin: 02/10/21 14:27 Dose: 999 mls/hr Documented by: Sodium Chloride (Normal Saline) 1,000 mls @ 90 mls/hr IV STAT ONE Stop: 02/11/21 01:43 Last Infusion: 02/10/21 18:58 Dose: 90 mls/hr Documented by: Lactated Ringer's (Ringers, Lactated) 1,000 mls @ 125 mls/hr IV ASDIRECTED [facility] Last Infusion: 02/10/21 23:35 Dose: 125 mls/hr Documented by: Pantoprazole Sodium 40 mg/ (Sodium Chloride) 10 mls @ 300 mls/hr IV DAILY [facility] Last Admin: 02/13/21 10:12 Dose: Not Given Documented by: Levofloxacin/Dextrose 750 mg/ (Premix) 150 mls @ 100 mls/hr IV Q24H [facility] Last Admin: 02/10/21 19:59 Dose: 100 mls/hr Documented by: Lactated Ringer's (Ringers, Lactated) 1,000 mls @ 999 mls/hr IV BOLUS ONE Stop: 02/10/21 23:00 Last Admin: 02/10/21 22:14 Dose: 999 mls/hr Documented by: Levofloxacin/Dextrose 750 mg/ (Premix) 150 mls @ 100 mls/hr IV Q48H [facility] Last Admin: 02/12/21 19:16 Dose: 100 mls/hr Documented by: Lactated Ringer's (Ringers, Lactated) 1,000 mls @ 125 mls/hr IV ASDIRECTED [facility] Last Infusion: 02/12/21 11:00 Dose: Infused Documented by: Magnesium Sulfate 2 gm/ Premix 50 mls @ 12.5 mls/hr IV ONETIME ONE Stop: 02/11/21 12:45 Last Admin: 02/11/21 09:21 Dose: 12.5 mls/hr Documented by: Metronidazole 500 mg/ Premix 100 mls @ 100 mls/hr IV QID [facility] Metronidazole 500 mg/ Premix 100 mls @ 100 mls/hr IV QID [facility] Last Admin: 02/13/21 13:16 Dose: Not Given Documented by: Lactated Ringer's (Ringers, Lactated) 1,000 mls @ 999 mls/hr IV .BOLUS ONE Stop: 02/11/21 14:55 Last Admin: 02/11/21 14:33 Dose: 999 mls/hr Documented by: Magnesium Sulfate (Magnesium Sulfate In Water 2 Gm/50 Ml) 2 gm in 50 mls @ 12.5 mls/hr IV ONETIME ONE Stop: 02/12/21 14:59 Potassium Chloride 40 meq/ (Premix) 100 mls @ 25 mls/hr IV ONETIME ONE Stop: 02/12/21 14:57 Magnesium Sulfate (Magnesium Sulfate In Water 2 Gm/50 Ml) 2 gm in 50 mls @ 12.5 mls/hr IV ONETIME ONE Stop: 02/12/21 15:14 Last Infusion: 02/12/21 15:00 Dose: 12.5 mls/hr Documented by: Magnesium Sulfate 2 gm/ Premix 50 mls @ 12.5 mls/hr IV ONETIME ONE Stop: 02/13/21 11:59 Last Admin: 02/13/21 09:20 Dose: 12.5 mls/hr Documented by: Pantoprazole Sodium 40 mg/ (Sodium Chloride) 10 mls @ 300 mls/hr IV DAILY [facility] Last Admin: 02/13/21 09:11 Dose: 300 mls/hr Documented by: Lorazepam (Lorazepam 2 Mg/Ml Sdv) 0.5 mg IVPUSH ONETIME PRN PRN Reason: If Pt can't still sleep Multivitamins/Minerals/Vitamin C (Multivitamin Tab) 1 tab PO DAILY [facility] Last Admin: 02/13/21 08:58 Dose: 1 tab Documented by: Ondansetron HCl (Ondansetron 4 Mg/2 Ml Sdv) 4 mg IVPUSH Q4H PRN PRN Reason: Nausea/Vomiting Potassium Chloride (Potassium Chloride 20 Meq Tab.Er) 40 meq PO ONETIME ONE Stop: 02/10/21 19:17 Last Admin: 02/10/21 19:58 Dose: 40 meq Documented by: Potassium Chloride (Potassium Chloride 20 Meq Tab.Er) 60 meq PO ONETIME ONE Stop: 02/12/21 10:31 Last Admin: 02/12/21 11:17 Dose: 60 meq Documented by: Potassium Chloride (Potassium Chloride 20 Meq Tab.Er) 40 meq PO ONETIME ONE Stop: 02/13/21 08:01 Last Admin: 02/13/21 08:57 Dose: 40 meq Documented by: Sodium Phosphate (Phosphorus #1 250 Mg Tab) 250 mg PO ONETIME ONE Stop: 02/11/21 08:47 Last Admin: 02/11/21 09:21 Dose: 250 mg Documented by: - Patient Data Result Diagrams: 02/13/21 12:48 02/13/21 12:48 Sree Results Last 24 hrs: Microbiology 02/10/21 16:50 Stool Culture - Final Stool / Feces Shiga Toxin I & II - Final 02/11/21 20:30 Cryptosporidium Antigen - Final Stool / Feces 02/10/21 16:50 Cryptosporidium/Giardia - Final Stool / Feces - My Orders Last 24 Hours: My Active Orders 02/13/21 14:20 Echo Comp wo Cont [US] Routine - Plan Plan:: I have seen and evaluated the patient and agree with the residents note unless specified in my note .
[2021-02-12] MEDS ORDERED: Magnesium Sulfate (4.06 MEQ/ML) 5 GM/10 ML SDV IV ONE ×2 (10:30→11:00)
[2021-02-12] MEDS ORDERED: Potassium Chloride 20 MEQ Tab.ER PO ONE (10:30)
[2021-02-12] MEDS ORDERED: Potassium Chloride Riders 40 MEQ in Premix Bag 1 BAG IV ONE (10:58)
[2021-02-12] MEDS ORDERED: Magnesium Sulfate/Water 2 GM/50 ML BAG IV ONE ×2 (11:00→11:15)
[2021-02-12] MEDS ORDERED: Diltiazem IR 60 MG Tab PO SCH ×2 (13:45→14:00)
[2021-02-12] MEDS ORDERED: Levofloxacin/Dextrose 5%-Water 750 MG in Premix Bag 1 BAG IV SCH (18:00)
[2021-02-12] MEDS: Diltiazem IR 60 MG Tab PO SCH (20:40)
[2021-02-13] MEDS: metroNIDAZOLE/Normal Saline 500 MG in Premix Bag 1 BAG IV SCH ×3 (00:18→13:16)
[2021-02-13] MEDS: Diltiazem IR 60 MG Tab PO SCH ×2 (01:43→08:57)
[2021-02-13] MEDS ORDERED: Magnesium Sulfate/Water 2 GM in Premix Bag 1 BAG IV ONE (08:00)
[2021-02-13] MEDS ORDERED: Potassium Chloride 20 MEQ Tab.ER PO ONE (08:00)
[2021-02-13] MEDS: Cholecalciferol (Vitamin D3) 25 MCG Tab PO SCH (08:57)
[2021-02-13] MEDS: Multivitamin Tab PO SCH (08:58)
[2021-02-13] MEDS: Calcium Carbonate/Vitamin D3 1500 MG-400 Units Tab PO SCH (08:58)
[2021-02-13] MEDS: Apixaban 2.5 MG Tab PO SCH (08:58)
[2021-02-13] MEDS: Aspirin 81 MG Tab.Chew PO SCH (08:58)
[2021-02-13] MEDS ORDERED: Pantoprazole 40 MG in Sodium Chloride 0.9% 10 ML IV SCH (09:10)
[2021-02-13] MEDS: Pantoprazole 40 MG in Sodium Chloride 0.9% 10 ML IV SCH (10:12)
[2021-02-13] MEDS ORDERED: Diltiazem 120 MG Cap.CD PO ONE (12:00)
--- NOTE | 2021-02-13 12:16 | PCM.DCSUM1 ---
Discharge Summary - Hospital Course Diagnosis: Stroke: No - Discharge Data Discharge Disposition: Home, Self-Care 01 Condition: Stable - Referral to Home Health Primary Care Physician: PCP None - Patient Summary/Data Consults: Consultations 02/13/21 08:01 PT Evaluation and Treatment [CONS] Routine - Discharge Plan *PRESCRIPTION DRUG MONITORING PROGRAM REVIEWED*: No *COPY OF PRESCRIPTION DRUG MONITORING REPORT IN PATIENT JOHN: No Prescriptions/Med Rec: Diltiazem [Cardizem CD] 240 mg PO DAILY #30 cap.er Apixaban [Eliquis] 2.5 mg PO BID #60 tablet metroNIDAZOLE [Flagyl] 500 mg PO Q8H #15 tablet levoFLOXacin [Levaquin] 750 mg PO Q48H #7 tab Home Medications: Home Meds Potassium Chloride [Klor-Con 10] 2 tab PO ACBRK 01/01/14 [History] Aspirin 1 tab PO DAILY 12/17/15 [History] Calcium Carbonate/Vitamin D3 [Calcium 600-Vit D3 500 Softgel] 1 cap PO DAILY 12/17/15 [History] Cholecalciferol (Vitamin D3) [Vitamin D3] 1 tab PO DAILY 12/17/15 [History] Multivitamin [Multivitamins] 1 tab PO DAILY 12/17/15 [History] Losartan [Cozaar] 100 mg PO DAILY 12/14/17 [History] Lenalidomide [Revlimid] 10 mg PO DAILY 03/12/20 [History] ALPRAZolam [Alprazolam] 0.25 mg PO ASDIRECTED 02/10/21 [History] Diltiazem HCl [Diltiazem 24Hr Cd] 120 mg PO DAILY 02/10/21 [History] Apixaban [Eliquis] 2.5 mg PO BID #60 tablet 02/13/21 [Rx] Diltiazem [Cardizem CD] 240 mg PO DAILY #30 cap.er 02/13/21 [Rx] levoFLOXacin [Levaquin] 750 mg PO Q48H #7 tab 02/13/21 [Rx] metroNIDAZOLE [Flagyl] 500 mg PO Q8H #15 tablet 02/13/21 [Rx] Patient Handouts: Atrial Fibrillation, [id number] Referrals: Yumiko Aviles MD [Physician] - 03/21/21 2:30 pm Jonnathan Kirkland MD [Physician] - 02/27/21 10:00 am - Patient Data Vitals - Most Recent: Last Vital Signs Temp 36.4 C 02/13/21 08:00 Pulse 82 02/13/21 11:32 Resp 18 02/13/21 08:00 BP 132/90 02/13/21 11:32 Pulse Ox 93 L 02/13/21 08:00 Weight - Most Recent: 57.606 kg I&O - Last 24 hours: Intake & Output 02/12/21 02/13/21 02/13/21 22:59 06:59 14:59 Intake Total 2359 1200 Output Total 1500 1350 Balance 859 -150 RAGHAV Results - Last 24 hrs: Microbiology 02/11/21 20:30 Cryptosporidium Antigen - Final Stool / Feces 02/10/21 16:50 Cryptosporidium/Giardia - Final Stool / Feces 02/10/21 16:50 Stool Culture - Preliminary Stool / Feces Shiga Toxin I & II - Final 02/10/21 16:50 Campylobacter Antigen Assay - Final Stool / Feces Med Orders - Current: Current Medications Acetaminophen (Acetaminophen 325 Mg Tab) 650 mg PO Q4H PRN PRN Reason: Pain (Mild 1-3)/fever Last Admin: 02/13/21 01:43 Dose: 650 mg Documented by: Albuterol/Ipratropium (Albuterol/Ipratropium 3.0-0.5 Mg/3 Ml Neb Soln) 3 ml NEB Q4HRRT PRN PRN Reason: Shortness Of Breath/wheezing Alprazolam (Alprazolam 0.25 Mg Tab) 0.25 mg PO BEDTIME PRN PRN Reason: Insomnia Last Admin: 02/11/21 21:59 Dose: 0.25 mg Documented by: Apixaban (Apixaban 2.5 Mg Tab) 2.5 mg PO BID [facility] Last Admin: 02/13/21 08:58 Dose: 2.5 mg Documented by: Aspirin (Aspirin 81 Mg Tab.Chew) 81 mg PO DAILY [facility] Last Admin: 02/13/21 08:58 Dose: 81 mg Documented by: Calcium Carbonate (Calcium Carbonate/Vitamin D3 1500 Mg-400 Units Tab) 1 tab PO DAILY [facility] Last Admin: 02/13/21 08:58 Dose: 1 tab Documented by: Cholecalciferol (Cholecalciferol (Vitamin D3) 25 Mcg Tab) 25 mcg PO DAILY [facility] Last Admin: 02/13/21 08:57 Dose: 25 mcg Documented by: Diltiazem HCl (Diltiazem 25 Mg/5 Ml Sdv) 20 mg IVPUSH Q6H PRN PRN Reason: Tachycardia Last Admin: 02/12/21 09:14 Dose: 20 mg Documented by: Levofloxacin/Dextrose 750 mg/ (Premix) 150 mls @ 100 mls/hr IV Q48H [facility] Last Admin: 02/12/21 19:16 Dose: 100 mls/hr Documented by: Metronidazole 500 mg/ Premix 100 mls @ 100 mls/hr IV QID [facility] Last Admin: 02/13/21 05:50 Dose: 100 mls/hr Documented by: Pantoprazole Sodium 40 mg/ (Sodium Chloride) 10 mls @ 300 mls/hr IV DAILY [facility] Last Admin: 02/13/21 09:11 Dose: 300 mls/hr Documented by: Lorazepam (Lorazepam 2 Mg/Ml Sdv) 0.5 mg IVPUSH ONETIME PRN PRN Reason: If Pt can't still sleep Multivitamins/Minerals/Vitamin C (Multivitamin Tab) 1 tab PO DAILY [facility] Last Admin: 02/13/21 08:58 Dose: 1 tab Documented by: Ondansetron HCl (Ondansetron 4 Mg/2 Ml Sdv) 4 mg IVPUSH Q4H PRN PRN Reason: Nausea/Vomiting Discontinued Medications Alprazolam (Alprazolam 0.25 Mg Tab) 0.25 mg PO ASDIRECTED [facility] Last Admin: 02/10/21 22:13 Dose: 0.25 mg Documented by: Diltiazem HCl (Diltiazem 25 Mg/5 Ml Sdv) 10 mg IVPUSH ONETIME ONE Stop: 02/10/21 14:44 Last Admin: 02/10/21 14:51 Dose: 10 mg Documented by: Diltiazem HCl (Diltiazem 120 Mg Cap.Cd) 120 mg PO ONETIME ONE Stop: 02/10/21 14:48 Diltiazem HCl (Diltiazem 120 Mg Cap.Cd) 60 mg PO ONETIME ONE Stop: 02/10/21 15:22 Last Admin: 02/10/21 17:06 Dose: Not Given Documented by: Diltiazem HCl (Diltiazem Ir 60 Mg Tab) Confirm Administered Dose 60 mg .ROUTE .STK-MED ONE Stop: 02/10/21 16:58 Last Admin: 02/10/21 17:06 Dose: Not Given Documented by: Diltiazem HCl (Diltiazem Ir 60 Mg Tab) 60 mg PO ONETIME ONE Stop: 02/10/21 17:03 Last Admin: 02/10/21 17:06 Dose: 60 mg Documented by: Diltiazem HCl (Diltiazem 180 Mg Cap.Cd) 120 mg PO DAILY [facility] Diltiazem HCl (Diltiazem 120 Mg Cap.Cd) 120 mg PO DAILY [facility] Last Admin: 02/11/21 08:18 Dose: 120 mg Documented by: Diltiazem HCl (Diltiazem Ir 60 Mg Tab) 60 mg PO ONETIME PRN PRN Reason: Tachycardia Last Admin: 02/11/21 00:48 Dose: 60 mg Documented by: Diltiazem HCl (Diltiazem Ir 60 Mg Tab) 60 mg PO ONETIME ONE Stop: 02/11/21 14:20 Last Admin: 02/11/21 14:33 Dose: 60 mg Documented by: Diltiazem HCl (Diltiazem 180 Mg Cap.Cd) 180 mg PO DAILY [facility] Last Admin: 02/12/21 08:32 Dose: 180 mg Documented by: Diltiazem HCl (Diltiazem Ir 60 Mg Tab) 60 mg PO Q6H [facility] Last Admin: 02/12/21 14:21 Dose: Not Given Documented by: Diltiazem HCl (Diltiazem Ir 60 Mg Tab) 60 mg PO Q6HR [facility] Last Admin: 02/12/21 15:00 Dose: 60 mg Documented by: Diltiazem HCl (Diltiazem Ir 60 Mg Tab) 60 mg PO Q6H [facility] Last Admin: 02/13/21 08:57 Dose: 60 mg Documented by: Diltiazem HCl (Diltiazem 120 Mg Cap.Cd) 240 mg PO ONETIME ONE Stop: 02/13/21 12:01 Last Admin: 02/13/21 11:32 Dose: 240 mg Documented by: Heparin Sodium (Porcine) (Heparin Sodium 5,000 Units/Ml Vial) 5,000 units SUBCUT Q8H [facility] Last Admin: 02/10/21 19:58 Dose: 5,000 units Documented by: Sodium Chloride (Normal Saline) 1,000 mls @ 999 mls/hr IV BOLUS ONE Stop: 02/10/21 15:17 Last Admin: 02/10/21 14:27 Dose: 999 mls/hr Documented by: Sodium Chloride (Normal Saline) 1,000 mls @ 90 mls/hr IV STAT ONE Stop: 02/11/21 01:43 Last Infusion: 02/10/21 18:58 Dose: 90 mls/hr Documented by: Lactated Ringer's (Ringers, Lactated) 1,000 mls @ 125 mls/hr IV ASDIRECTED [facility] Last Infusion: 02/10/21 23:35 Dose: 125 mls/hr Documented by: Pantoprazole Sodium 40 mg/ (Sodium Chloride) 10 mls @ 300 mls/hr IV DAILY [facility] Last Admin: 02/13/21 10:12 Dose: Not Given Documented by: Levofloxacin/Dextrose 750 mg/ (Premix) 150 mls @ 100 mls/hr IV Q24H [facility] Last Admin: 02/10/21 19:59 Dose: 100 mls/hr Documented by: Lactated Ringer's (Ringers, Lactated) 1,000 mls @ 999 mls/hr IV BOLUS ONE Stop: 02/10/21 23:00 Last Admin: 02/10/21 22:14 Dose: 999 mls/hr Documented by: Lactated Ringer's (Ringers, Lactated) 1,000 mls @ 125 mls/hr IV ASDIRECTED [facility] Last Infusion: 02/12/21 11:00 Dose: Infused Documented by: Magnesium Sulfate 2 gm/ Premix 50 mls @ 12.5 mls/hr IV ONETIME ONE Stop: 02/11/21 12:45 Last Admin: 02/11/21 09:21 Dose: 12.5 mls/hr Documented by: Metronidazole 500 mg/ Premix 100 mls @ 100 mls/hr IV QID [facility] Lactated Ringer's (Ringers, Lactated) 1,000 mls @ 999 mls/hr IV .BOLUS ONE Stop: 02/11/21 14:55 Last Admin: 02/11/21 14:33 Dose: 999 mls/hr Documented by: Magnesium Sulfate (Magnesium Sulfate In Water 2 Gm/50 Ml) 2 gm in 50 mls @ 12.5 mls/hr IV ONETIME ONE Stop: 02/12/21 14:59 Potassium Chloride 40 meq/ (Premix) 100 mls @ 25 mls/hr IV ONETIME ONE Stop: 02/12/21 14:57 Magnesium Sulfate (Magnesium Sulfate In Water 2 Gm/50 Ml) 2 gm in 50 mls @ 12.5 mls/hr IV ONETIME ONE Stop: 02/12/21 15:14 Last Infusion: 02/12/21 15:00 Dose: 12.5 mls/hr Documented by: Magnesium Sulfate 2 gm/ Premix 50 mls @ 12.5 mls/hr IV ONETIME ONE Stop: 02/13/21 11:59 Last Admin: 02/13/21 09:20 Dose: 12.5 mls/hr Documented by: Potassium Chloride (Potassium Chloride 20 Meq Tab.Er) 40 meq PO ONETIME ONE Stop: 02/10/21 19:17 Last Admin: 02/10/21 19:58 Dose: 40 meq Documented by: Potassium Chloride (Potassium Chloride 20 Meq Tab.Er) 60 meq PO ONETIME ONE Stop: 02/12/21 10:31 Last Admin: 02/12/21 11:17 Dose: 60 meq Documented by: Potassium Chloride (Potassium Chloride 20 Meq Tab.Er) 40 meq PO ONETIME ONE Stop: 02/13/21 08:01 Last Admin: 02/13/21 08:57 Dose: 40 meq Documented by: Sodium Phosphate (Phosphorus #1 250 Mg Tab) 250 mg PO ONETIME ONE Stop: 02/11/21 08:47 Last Admin: 02/11/21 09:21 Dose: 250 mg Documented by:
[2021-02-13 13:16] VITALS: BP 139/74; PULSE 89
[2021-02-13 13:29] LABS: CARBON DIOXIDE,CO2 22.6 mmol/L (21.0-32.0); POTASSIUM,K 3.5 mmol/L (3.5-5.1)
--- NOTE | 2021-02-16 14:45 | ECHO ---
EXAM DATE: 02/10/21 PATIENT'S AGE: 75 The ECHO report has been scanned into [employer] and can be seen in this patient's EMR (Electronic Medical Record) under the REPORTS section. The report has also been scanned into PACS. JESSIKA
== END 2021-02-13 14:45 | disposition home or self-care (01) ==
LOC: MW.ED 13:48 → MW.MS 18:05
PROVIDERS: ADMIT Student in an Organized Health Care Education/Training Program; ATTEND Student in an Organized Health Care Education/Training Program
DX: E86.0 Dehydration (principal); R11.10 Vomiting, unspecified; C90.00 Multiple myeloma not having achieved remission; I10 Essential (primary) hypertension; R19.7 Diarrhea, unspecified; I48.91 Unspecified atrial fibrillation; N17.9 Acute kidney failure, unspecified; Z88.5 Allergy status to narcotic agent; Z88.8 Allergy status to other drugs, medicaments and biological substances; Z79.82 Long term (current) use of aspirin; Z79.899 Other long term (current) drug therapy
CPT/HCPCS: 36415; 70450; 71045; 71250; 80048; 80053; 81001; 83690; 83735; 83880; 84100; 84484; 85025; 85379; 87045; 87046; 87324; 87328; 87329; 87449; 87899; 93005; 93306; 96365; 96366; 96367; 96372; 96375; 96376; 97161; 99285; A9270; C9113; G0378; J1644; J1956; J3475; J3490; J7030; J7120; 36410; 96374; 99284

== ENCOUNTER 2021-02-21 15:59 | Emergency (ER) | payer MEDICARE, BC ==
--- NOTE | 2021-02-21 17:50 | EDM.PDOC ---
<ObiSanjeev Murray - Last Filed: 02/21/21 18:11> ED HPI GENERAL MEDICAL PROBLEM - General Chief Complaint: General Stated Complaint: FATIGUE Time Seen by Provider: 02/21/21 17:26 Source of Information: Reports: Patient, Old Records History Limitations: Reports: No Limitations - History of Present Illness INITIAL COMMENTS - FREE TEXT/NARRATIVE: Patient is a 75-year-old female presents today for fatigue and increasing shortness of breath. Patient states she was admitted here back on 13 February where she was diagnosed with pneumonia. She was discharged with Flagyl and levofloxacin that she is taken for 48 hours. She still has 2 more days left of the levofloxacin. Pat states that when she is at home whenever she moves around she gets really fatigue and some shortness of breath. She denies any leg swelling chest pain nausea vomiting or fevers or increased coughing. - Related Data Allergies Allergy/AdvReac Type Severity Reaction Status Date / Time cantaloupe Allergy Other Verified 02/21/21 16:12 codeine Allergy Difficulty Verified 02/21/21 16:12 Breathing Home Meds: Home Meds Potassium Chloride [Klor-Con 10] 2 tab PO ACBRK 01/01/14 [History] Aspirin 1 tab PO DAILY 12/17/15 [History] Calcium Carbonate/Vitamin D3 [Calcium 600-Vit D3 500 Softgel] 1 cap PO DAILY 12/17/15 [History] Cholecalciferol (Vitamin D3) [Vitamin D3] 1 tab PO DAILY 12/17/15 [History] Multivitamin [Multivitamins] 1 tab PO DAILY 12/17/15 [History] Losartan [Cozaar] 100 mg PO DAILY 12/14/17 [History] Lenalidomide [Revlimid] 10 mg PO DAILY 03/12/20 [History] ALPRAZolam [Alprazolam] 0.25 mg PO ASDIRECTED 02/10/21 [History] Apixaban [Eliquis] 2.5 mg PO BID #60 tablet 02/13/21 [Rx] Diltiazem [Cardizem CD] 240 mg PO DAILY #30 cap.er 02/13/21 [Rx] levoFLOXacin [Levaquin] 750 mg PO Q48H #7 tab 02/13/21 [Rx] metroNIDAZOLE [Flagyl] 500 mg PO Q8H #15 tablet 06/28/21 [Rx] Past Medical History HEENT History: Reports: Impaired Vision Cardiovascular History: Reports: Hypertension Respiratory History: Reports: None Gastrointestinal History: Reports: Diverticulosis Other Gastrointestinal History: heartburn Genitourinary History: Reports: None [employer] History: Reports: Musculoskeletal History: Reports: Arthritis Neurological History: Reports: Migraines Psychiatric History: Reports: None Endocrine/Metabolic History: Reports: None Hematologic History: Reports: None Immunologic History: Reports: None Oncologic (Cancer) History: Reports: Other (See Below) 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 Dermatologic History: Reports: Other (See Below) Other Dermatologic History: multiple Myeloma - Infectious Disease History Infectious Disease History: Reports: Chicken Pox, Measles - Past Surgical History Head Surgeries/Procedures: Reports: None HEENT Surgical History: Reports: None Cardiovascular Surgical History: Reports: None GI Surgical History: Reports: Cholecystectomy, Small Bowel, Other (See Below) Other GI Surgeries/Procedures: ruptured intestines, dumping syndrome Female Surgical History: Reports: Breast Biopsy, Hysterectomy Endocrine Surgical History: Reports: None Neurological Surgical History: Reports: None Musculoskeletal Surgical History: Reports: None Oncologic Surgical History: Reports: None Dermatological Surgical History: Reports: None Social & Family History - Family History Family Medical History: No Pertinent Family History HEENT: Reports: None Cardiac: Reports: None - Caffeine Use Caffeine Use: Reports: Coffee ED ROS GENERAL - Review of Systems Review Of Systems: See Below Constitutional: Reports: No Symptoms HEENT: Reports: No Symptoms Respiratory: Reports: Shortness of Breath Cardiovascular: Reports: No Symptoms Endocrine: Reports: No Symptoms GI/Abdominal: Reports: No Symptoms : Reports: No Symptoms Musculoskeletal: Reports: No Symptoms Skin: Reports: No Symptoms Neurological: Reports: No Symptoms Psychiatric: Reports: No Symptoms Hematologic/Lymphatic: Reports: No Symptoms Immunologic: Reports: No Symptoms ED EXAM, GENERAL - Physical Exam Exam: See Below Exam Limited By: No Limitations General Appearance: Alert, WD/WN, No Apparent Distress Eye Exam: Bilateral Eye: EOMI, PERRL Head: Atraumatic Respiratory/Chest: No Respiratory Distress, Lungs Clear Cardiovascular: Normal Peripheral Pulses, Regular Rate, Rhythm GI/Abdominal: Normal Bowel Sounds, Soft, Non-Tender Extremities: Normal Inspection Neurological: Alert, Oriented, CN II-XII Intact, Normal Cognition, Normal Gait Departure - Departure Disposition: Home, Self-Care 01 Clinical Impression: Pleural effusion, Multiple myeloma, History of recent pneumonia - Discharge Information Referrals: Jonnathan Kirkland MD [Primary Care Provider] - Forms: ED Department Discharge Additional Instructions: You should call Dr. Powers's office and your ooncologist tomorrow and let them both arrange quick follow-up because the fluid around yopur left lung has increased since the 10 of February. This could warrant an echocardiogram and possibly an interventional radiologist to do a diagnostic/therapeutic pleural tap to remove the fluid and test it. [facility] - cardiology [address] [place] [id number] The following information is given to patients seen in the emergency department who are being discharged to home. This information is to outline your options for follow-up care. We provide all patients seen in our emergency department with a follow-up referral. The need for follow-up, as well as the timing and circumstances, are variable depending upon the specifics of your emergency department visit. If you don't have a primary care physician on staff, we will provide you with a referral. We always advise you to contact your personal physician following an emergency department visit to inform them of the circumstance of the visit and for follow-up with them and/or the need for any referrals to a consulting specialist. The emergency department will also refer you to a specialist when appropriate. This referral assures that you have the opportunity for follow-up care with a specialist. All of these measure are taken in an effort to provide you with optimal care, which includes your follow-up. Sepsis Event Note (ED) - Evaluation Sepsis Screening Result: Possible Sepsis Risk - Assessment/Plan Plan: Patient is a 75-year-old female presents today for increasing fatigue and shortness of breath at the [facility]. Patient still currently take antibiotics and is may be residual symptoms from her previous pneumonia diagnosis. Will obtain basic labs x-ray and reassess. <Davin Almaraz - Last Filed: 02/21/21 19:56> Course - Vital Signs Text/Narrative:: 19:51 I accepted this patient at the end of my partner's shift. She is off oxygen and has a saturation of 95% and is in no distress. The X Ray shows increased size of a left pleural effusion. She has never had a thoracentesis and never had an echocardiogram, according to her. Her next appointment for cardiology is in March. I recommend discharge, call cancer doctor and cardiology clinic tomorrow and arrange more expeditious evaluation re: newly increasing effusion. Last Recorded V/S: Last Vital Signs Temp 36.6 C 02/21/21 17:45 Pulse 84 02/21/21 17:45 Resp 18 02/21/21 17:45 BP 118/72 02/21/21 17:45 Pulse Ox 98 02/21/21 17:45 - Orders/Labs/Meds Labs: Laboratory Tests 02/21/21 02/21/21 02/21/21 Range/Units 18:00 18:00 18:00 WBC 3.12 L (4.0-11.0) K/uL RBC 3.73 L (4.30-5.90) M/uL Hgb 12.4 (12.0-16.0) g/dL Hct 35.5 L (36.0-46.0) % MCV 95.2 (80.0-98.0) fL MCH 33.2 H (27.0-32.0) pg MCHC 34.9 (31.0-37.0) g/dL RDW Std Deviation 53.6 (28.0-62.0) fl RDW Coeff of Bubba 15 (11.0-15.0) % Plt Count 168 (150-400) K/uL MPV 11.70 (7.40-12.00) fL Neut % (Auto) 61.3 (48.0-80.0) % Lymph % (Auto) 19.2 (16.0-40.0) % [place] % (Auto) 17.0 H (0.0-15.0) % Eos % (Auto) 2.2 (0.0-7.0) % Baso % (Auto) 0.3 (0.0-1.5) % Neut # (Auto) 1.9 (1.4-5.7) K/uL Lymph # (Auto) 0.6 (0.6-2.4) K/uL [place] # (Auto) 0.5 (0.0-0.8) K/uL Eos # (Auto) 0.1 (0.0-0.7) K/uL Baso # (Auto) 0.0 (0.0-0.1) K/uL Nucleated RBC % 0.0 /100WBC Nucleated RBCs # 0 K/uL Sodium 143 (136-145) mmol/L Potassium 3.8 (3.5-5.1) mmol/L Chloride 111 H (98-107) mmol/L Carbon Dioxide 23.1 (21.0-32.0) mmol/L BUN 16 (7.0-18.0) mg/dL Creatinine 1.1 H (0.6-1.0) mg/dL Est Cr Clr Drug Dosing 38.54 mL/min Estimated GFR (MDRD) 48.2 ml/min Glucose 100 (74-106) mg/dL Lactic Acid 1.7 (0.4-2.0) mmol/L Calcium 8.2 L (8.5-10.1) mg/dL Phosphorus 3.1 (2.6-4.7) mg/dL Magnesium 1.7 L (1.8-2.4) mg/dL Total Bilirubin 0.4 (0.2-1.0) mg/dL AST 17 (15-37) IU/L ALT 32 (14-63) IU/L Alkaline Phosphatase 63 (46-116) U/L Troponin I < 0.050 (0.000-0.056) ng/mL Total Protein 5.2 L (6.4-8.2) g/dL Albumin 2.6 L (3.4-5.0) g/dL Globulin 2.6 (2.6-4.0) g/dL Albumin/Globulin Ratio 1.0 (0.9-1.6) Lipase 159 (73-393) U/L Urine Color Urine Appearance Urine pH (5.0-8.0) Ur Specific [place] (1.001-1.035) Urine Protein (NEGATIVE) mg/dL Urine Glucose (UA) (NEGATIVE) mg/dL Urine Ketones (NEGATIVE) mg/dL Urine Occult Blood (NEGATIVE) Urine Nitrite (NEGATIVE) Urine Bilirubin (NEGATIVE) Urine Ictotest Urine Urobilinogen (<2.0) EU/dL Ur Leukocyte Esterase (NEGATIVE) Urine RBC (0-2/HPF) Urine WBC (0-5/HPF) Ur Epithelial Cells (NONE-FEW) Calcium Oxalate Crystal (NEGATIVE) Urine Bacteria (NEGATIVE) Urine Mucus (NONE-MOD) 07/06/21 Range/Units 18:58 WBC (4.0-11.0) K/uL RBC (4.30-5.90) M/uL Hgb (12.0-16.0) g/dL Hct (36.0-46.0) % MCV (80.0-98.0) fL MCH (27.0-32.0) pg MCHC (31.0-37.0) g/dL RDW Std Deviation (28.0-62.0) fl RDW Coeff of Bubba (11.0-15.0) % Plt Count (150-400) K/uL MPV (7.40-12.00) fL Neut % (Auto) (48.0-80.0) % Lymph % (Auto) (16.0-40.0) % [place] % (Auto) (0.0-15.0) % Eos % (Auto) (0.0-7.0) % Baso % (Auto) (0.0-1.5) % Neut # (Auto) (1.4-5.7) K/uL Lymph # (Auto) (0.6-2.4) K/uL [place] # (Auto) (0.0-0.8) K/uL Eos # (Auto) (0.0-0.7) K/uL Baso # (Auto) (0.0-0.1) K/uL Nucleated RBC % /100WBC Nucleated RBCs # K/uL Sodium (136-145) mmol/L Potassium (3.5-5.1) mmol/L Chloride (98-107) mmol/L Carbon Dioxide (21.0-32.0) mmol/L BUN (7.0-18.0) mg/dL Creatinine (0.6-1.0) mg/dL Est Cr Clr Drug Dosing mL/min Estimated GFR (MDRD) ml/min Glucose (74-106) mg/dL Lactic Acid (0.4-2.0) mmol/L Calcium (8.5-10.1) mg/dL Phosphorus (2.6-4.7) mg/dL Magnesium (1.8-2.4) mg/dL Total Bilirubin (0.2-1.0) mg/dL AST (15-37) IU/L ALT (14-63) IU/L Alkaline Phosphatase (46-116) U/L Troponin I (0.000-0.056) ng/mL Total Protein (6.4-8.2) g/dL Albumin (3.4-5.0) g/dL Globulin (2.6-4.0) g/dL Albumin/Globulin Ratio (0.9-1.6) Lipase (73-393) U/L Urine Color YELLOW Urine Appearance SLT CLOUDY Urine pH 5.5 (5.0-8.0) Ur Specific [place] >= 1.030 (1.001-1.035) Urine Protein 30 H (NEGATIVE) mg/dL Urine Glucose (UA) NEGATIVE (NEGATIVE) mg/dL Urine Ketones TRACE H (NEGATIVE) mg/dL Urine Occult Blood SMALL H (NEGATIVE) Urine Nitrite NEGATIVE (NEGATIVE) Urine Bilirubin SMALL H (NEGATIVE) Urine Ictotest NEGATIVE Urine Urobilinogen 0.2 (<2.0) EU/dL Ur Leukocyte Esterase NEGATIVE (NEGATIVE) Urine RBC 0-4 (0-2/HPF) Urine WBC 0-1 (0-5/HPF) Ur Epithelial Cells OCCASIONAL (NONE-FEW) Calcium Oxalate Crystal FEW (NEGATIVE) Urine Bacteria FEW (NEGATIVE) Urine Mucus LIGHT (NONE-MOD) Departure - Departure Time of Disposition: 19:53 Condition: Good Sepsis Event Note (ED) - Focused Exam Vital Signs: Vital Signs Temp Pulse Resp BP Pulse Ox 02/21/21 17:45 36.6 C 84 18 118/72 98 02/21/21 16:12 35.7 C L 97 22 H 118/58 L 98
[2021-02-21 18:39] LABS: BLOOD UREA NITROGEN,BUN 16 mg/dL (7.0-18.0); CARBON DIOXIDE,CO2 23.1 mmol/L (21.0-32.0); CHLORIDE,CL 111 mmol/L (98-107); GLUCOSE RANDOM 100 mg/dL (74-106); LIPASE 159 U/L (73-393); POTASSIUM,K 3.8 mmol/L (3.5-5.1); SODIUM,NA 143 mmol/L (136-145)
--- NOTE | 2021-02-21 19:30 | CR ---
INDICATION: Previous pneumonia. Increasing shortness of breath. TECHNIQUE: Chest radiograph 2 views COMPARISON: 02/10/2021 FINDINGS: Cardiovascular and mediastinum: Heart and mediastinal contours are stable. Left cardiac silhouette obscured due to left pleural effusion. Lungs and pleural spaces: Increased size of left pleural effusion from 02/10/2021. Right costophrenic sulcus remains clear. Bones and soft tissues: No significant findings. Cholecystectomy surgical clips in the upper right abdomen. IMPRESSION: 1. Moderate left pleural effusion, increased in size from 02/10/2021. Dictated by Sean Quesada MD @ 02/21/2021 7:28:[address] Sean Quesada @ Feb 21 2021 7:28PM
[2021-02-21 20:15] VITALS: BP 121/59; PULSE 72
== END 2021-02-21 20:15 | disposition home or self-care (01) ==
LOC: MW.ED 15:59
DX: C90.00 Multiple myeloma not having achieved remission (principal); J90 Pleural effusion, not elsewhere classified; I10 Essential (primary) hypertension; M19.90 Unspecified osteoarthritis, unspecified site; G43.909 Migraine, unspecified, not intractable, without status migrainosus; Z88.5 Allergy status to narcotic agent; Z91.018 Allergy to other foods; Z79.82 Long term (current) use of aspirin; Z79.01 Long term (current) use of anticoagulants; Z79.899 Other long term (current) drug therapy
CPT/HCPCS: 36415; 71046; 71046-26; 80053; 81001; 83605; 83690; 83735; 84100; 84484; 85025; 99285-25

== ENCOUNTER 2021-03-02 22:22 | Emergency (ER) | payer MEDICARE, BC ==
[2021-03-02 23:38] LABS: CARBON DIOXIDE,CO2 26.9 mmol/L (21.0-32.0); POTASSIUM,K 3.9 mmol/L (3.5-5.1)
--- NOTE | 2021-03-03 01:24 | CT ---
INDICATION: Recurrent rectal bleeding TECHNIQUE: CT abdomen and pelvis without contrast. COMPARISON: March 12, 2012 FINDINGS: Lower chest: Moderate-size left pleural effusion. Liver: Unremarkable. Spleen: Unremarkable. Pancreas: Unremarkable. Gallbladder and bile ducts: S/p cholecystectomy. Adrenal glands: Unremarkable. Kidneys: 2 millimeter nonobstructive right nephrolithiasis. GI tract: Colonic diverticulosis. Appendix is normal. Vascular structures: Unremarkable. Lymph nodes: Unremarkable. Miscellaneous: Unremarkable. No free air or significant free fluid. Pelvic Organs: S/p hysterectomy. Bones: Unremarkable for age. IMPRESSION: No acute process identified. 2 mm nonobstructive right nephrolithiasis. Colonic diverticulosis. Moderate size left pleural effusion. Status post hysterectomy. Please note that all CT scans at this facility use dose modulation, iterative reconstruction, and/or weight-based dosing when appropriate to reduce radiation dose to as low as reasonably achievable. Dictated by Vee Johnson MD @ 03/03/2021 1:23:[address] Vee Johnson @ Mar 03 2021 1:23AM
[2021-03-03 01:41] VITALS: BP 135/78
--- NOTE | 2021-03-03 02:14 | EDM.PDOC ---
ED HPI GENERAL MEDICAL PROBLEM - General Chief Complaint: Gastrointestinal Problem Stated Complaint: BLEEDING OUT RECTUM Time Seen by Provider: 03/02/21 22:49 - History of Present Illness INITIAL COMMENTS - FREE TEXT/NARRATIVE: CHIEF COMPLAINT(S): "I am losing blood when I go to the restroom." HISTORY OF PRESENT ILLNESS: This is a 75-year-old man with a recent diagnosis of atrial fibrillation who is on Eliquis and a prior history of diverticulitis and external hemorrhoids who comes to the emergency department with a chief complaint of "I am losing blood when I go to the restroom. She states that prior to arrival approximately 3 hours she had a bowel movement which was bright red blood. She states that she soaked through 4-5 pads. She states that given this and given that she is on a blood thinner she came into the emergency department. She denies any dizziness, chest pain, shortness of breath, abdominal pain. She denies any hematuria, dysuria, vaginal bleeding or vaginal discharge. She states that she does have a history of hemorrhoids but she denies any pain. She states she has had a history of diverticulitis but has not had bright red blood like this before. She denies any symptoms at all whatsoever except for bleeding when she goes to the restroom. This is bright red blood REVIEW OF SYSTEMS: Constitutional: Denies fever, chills. Eyes: Denies eye pain Ears, Nose, Mouth, & Throat: Denies earache Cardiovascular: Denies chest pain Respiratory: Denies shortness of breath Gastrointestinal: Positive for hematochezia. Denies melena, abdominal pain, nausea, vomiting, hematemesis, bilious emesis Genitourinary: Denies hematuria, dysuria, vaginal bleeding, vaginal discharge skin:Denies a rash MSK: Denies joint pain Neurological: Denies blurred vision Psychiatric: Denies depression PAST MEDICAL HISTORY: As per history of present illness and as reviewed below otherwise noncontributory. SURGICAL HISTORY: As per history of present illness and as reviewed below otherwise noncontributory. SOCIAL HISTORY: As per history of present illness and as reviewed below otherwise noncontributory. FAMILY HISTORY: As per history of present illness and as reviewed below otherwise noncontributory. EXAMINATION OF ORGAN SYSTEMS/BODY AREAS: Constitutional: Blood pressure is 138/63, heart rate 69, respiratory rate 16 with an oxygen saturation 97% on room air. Temperature 36.6 General: Overall well-appearing elderly woman who is in no acute distress Psychiatric: Appropriate mood and affect. Eyes: No scleral icterus or conjunctival erythema no pale conjunctiva. ENMT: Moist mucous membranes. No pharyngeal erythema mucous membranes are pink. Cardiovascular: Regular, rate, and rhythm. No gallops, murmurs, or rubs. Bilateral upper extremity pulses symmetric and intact. Capillary refill is less than 2 seconds Respiratory: Lungs clear to auscultation bilaterally. No wheezes, rales, or rhonchi. Gastrointestinal: Soft, non-tender, non-distended. Normoactive bowel sounds no rebound or guarding. Rectal examination was performed with RN cement finishing supervisor in presence. There is evidence of external hemorrhoids without any active bleeding. There is no evidence of any thrombosed hemorrhoids. Stool was brown. Guaiac is inaccurate secondary to blood drying around the rectum. Genitourinary: No suprapubic tenderness Musculoskeletal: Normal range of motion. Skin: No lesions or abrasions. Neurological: Alert, GCS 15 MEDICAL DECISION MAKING AND COURSE IN THE ED WITH INTERPRETATION/REVIEW OF DIAGNOSTIC STUDIES: This is a 75-year-old with 1 with a past medical history of recent diagnosis of atrial fibrillation on Eliquis, prior shave diverticulitis, and history of hemorrhoids who comes to the emergency department with acute onset bright red blood per rectum who has normal vital signs. At this time on examination there is no obvious area of bleeding in her stool was not red or black. There was no active bleeding seen anywhere on examination. However given that she is on Eliquis we will obtain some labs including CBC, coags, BMP. Will obtain a CT abdomen pelvis without contrast to evaluate for diverticulitis versus other etiology. No contrast can be used given the patient's kidney function. Laboratory: CBC reveals a normocytic anemia with a hemoglobin 11.5 and hematocrit of 33.6. This is decreased from prior at 12.4. INR is normal. BMP reveals hyperchloremia at 109 and elevated creatinine 1.2 otherwise unremarkable. The radiological images were viewed by myself along with reading the report from the radiologist. CT abdomen pelvis without contrast reveals 2 mm nonobstructive right nephrolithiasis. Colonic diverticulosis. There is a moderate right-sided pleural effusion status post hysterectomy. No other abnormalities While the patient is observed in the emergency department for approximately 4 hours the patient's vital signs remained normal and the patient did have multiple bowel movements without any bright red blood. She had no further bleeding. At this time I did discuss with the patient observation admission versus discharge. At this time they elected for discharge. I gave them strict return precautions. They were amenable to discharge and had no further questions DISPOSITION: The patient was discharged home in stable condition. The patient will follow up with primary care physician in 1 to 3 days CONDITION: Fair PROCEDURES: None FINAL IMPRESSION(S)/DIAGNOSES: 1. Acute bright red blood per rectum, likely secondary to bleeding hemorrhoids, resolved Moi Goyal M.D. - Related Data Allergies Allergy/AdvReac Type Severity Reaction Status Date / Time cantaloupe Allergy Other Verified 03/03/21 15:36 codeine Allergy Difficulty Verified 03/03/21 15:36 Breathing Home Meds: Home Meds Potassium Chloride [Klor-Con 10] 2 tab PO ACBRK 01/01/14 [History] Aspirin 1 tab PO DAILY 12/17/15 [History] Calcium Carbonate/Vitamin D3 [Calcium 600-Vit D3 500 Softgel] 1 cap PO DAILY 12/17/15 [History] Cholecalciferol (Vitamin D3) [Vitamin D3] 1 tab PO DAILY 12/17/15 [History] Multivitamin [Multivitamins] 1 tab PO DAILY 12/17/15 [History] Losartan [Cozaar] 100 mg PO DAILY 12/14/17 [History] Lenalidomide [Revlimid] 10 mg PO DAILY 03/12/20 [History] ALPRAZolam [Alprazolam] 0.25 mg PO ASDIRECTED PRN 02/10/21 [History] Apixaban [Eliquis] 2.5 mg PO BID #60 tablet 02/13/21 [Rx] Diltiazem [Cardizem CD] 240 mg PO DAILY #30 cap.er 02/13/21 [Rx] Hydrocortisone [Anusol-Hc] 30 gm TP TID #1 tube 03/03/21 [Rx] Past Medical History HEENT History: Reports: Impaired Vision Cardiovascular History: Reports: Afib, Hypertension Respiratory History: Reports: None Gastrointestinal History: Reports: Diverticulosis Other Gastrointestinal History: heartburn Genitourinary History: Reports: None [employer] History: Reports: Musculoskeletal History: Reports: Arthritis Neurological History: Reports: Migraines Psychiatric History: Reports: None Endocrine/Metabolic History: Reports: None Hematologic History: Reports: None Immunologic History: Reports: None Oncologic (Cancer) History: Reports: Other (See Below) 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 Dermatologic History: Reports: Other (See Below) Other Dermatologic History: multiple Myeloma - Infectious Disease History Infectious Disease History: Reports: Chicken Pox, Measles - Past Surgical History Head Surgeries/Procedures: Reports: None HEENT Surgical History: Reports: None Cardiovascular Surgical History: Reports: None GI Surgical History: Reports: Cholecystectomy, Small Bowel, Other (See Below) Other GI Surgeries/Procedures: ruptured intestines, dumping syndrome Female Surgical History: Reports: Breast Biopsy, Hysterectomy Endocrine Surgical History: Reports: None Neurological Surgical History: Reports: None Musculoskeletal Surgical History: Reports: None Oncologic Surgical History: Reports: None Dermatological Surgical History: Reports: None Social & Family History - Family History Family Medical History: No Pertinent Family History HEENT: Reports: None Cardiac: Reports: None - Tobacco Use Tobacco Use Status *Q: Never Tobacco User - Caffeine Use Caffeine Use: Reports: Coffee - Recreational Drug Use Recreational Drug Use: No ED ROS GENERAL - Review of Systems Review Of Systems: See Below ED EXAM, GENERAL - Physical Exam Exam: See Below Course - Vital Signs Last Recorded V/S: Last Vital Signs Temp 36.6 C 03/02/21 22:32 Pulse 76 03/03/21 02:27 Resp 16 03/03/21 02:27 BP 135/78 03/03/21 02:27 Pulse Ox 97 03/03/21 02:27 - Orders/Labs/Meds Labs: Laboratory Tests 03/02/21 03/02/21 03/02/21 Range/Units 23:07 23:07 23:07 WBC 3.72 L (4.0-11.0) K/uL RBC 3.45 L (4.30-5.90) M/uL Hgb 11.5 L (12.0-16.0) g/dL Hct 33.6 L (36.0-46.0) % MCV 97.4 (80.0-98.0) fL MCH 33.3 H (27.0-32.0) pg MCHC 34.2 (31.0-37.0) g/dL RDW Std Deviation 55.4 (28.0-62.0) fl RDW Coeff of Bubba 16 H (11.0-15.0) % Plt Count 229 (150-400) K/uL MPV 9.80 (7.40-12.00) fL Add Manual Diff YES Neutrophils % (Manual) 50 (48.0-80.0) % Lymphocytes % (Manual) 29 (16.0-40.0) % Monocytes % (Manual) 18 H (0.0-15.0) % Eosinophils % (Manual) 3 (0.0-7.0) % Nucleated RBC % 0.0 /100WBC Absolute Seg Neuts 1.9 (1.4-5.7) Lymphocytes # (Manual) 1.1 (0.6-2.4) Monocytes # (Manual) 0.7 (0.0-0.8) Eosinophils # (Manual) 0.1 (0.0-0.7) Nucleated RBCs # 0 K/uL INR 0.98 APTT 21.6 (18.6-31.3) SEC Sodium 142 (136-145) mmol/L Potassium 3.9 (3.5-5.1) mmol/L Chloride 109 H (98-107) mmol/L Carbon Dioxide 26.9 (21.0-32.0) mmol/L BUN 16 (7.0-18.0) mg/dL Creatinine 1.2 H (0.6-1.0) mg/dL Est Cr Clr Drug Dosing 35.33 mL/min Estimated GFR (MDRD) 43.6 ml/min Glucose 84 (74-106) mg/dL Calcium 8.6 (8.5-10.1) mg/dL Departure - Departure Time of Disposition: 02:13 Disposition: Home, Self-Care 01 Condition: Fair Clinical Impression: Bleeding - Discharge Information *PRESCRIPTION DRUG MONITORING PROGRAM REVIEWED*: No *COPY OF PRESCRIPTION DRUG MONITORING REPORT IN PATIENT JOHN: No Instructions: Rectal Bleeding, Bleeding Precautions When on Anticoagulant Therapy, Pediatric Referrals: Jonnathan Kirkland MD [Primary Care Provider] - Forms: ED Department Discharge Additional Instructions: Ms. Sarabia today were evaluated on an emergent basis. At this time we did do a rectal exam which did not reveal any red stool. In addition you had multiple bowel movements in the emergency department all of which did not have any blood in the stool. You do have evidence of some hemorrhoids near your rectum. There was no active bleeding noted at this time. Your CT did show diverticulosis without any diverticulitis and your vitals remained normal throughout your stay. Your hemoglobin which is a sign of anemia did drop from 12.4-11.5 otherwise everything was at your normal baseline. As discussed if you have any red blood in your stools, bleeding like you had prior to arrival, black stools, pain, or fever I would like you to return to the emergency department immediately. It is important that you follow-up with your primary care physician in 1 to 3 days. [facility] [address] [place] [id number] [facility] [address] [place] [id number] The patient is informed of any results of their evaluation and diagnostic workup and all questions are answered. They are given discharge instructions and return precautions. The patient is stable for discharge. The patient states they understand and agree with the plan and that they will return if their symptoms get worse or if they have any new concerns. The following information is given to patients seen in the emergency department who are being discharged to home. This information is to outline your options for follow-up care. We provide all patients seen in our emergency department with a follow-up referral. The need for follow-up, as well as the timing and circumstances, are variable depending upon the specifics of your emergency department visit. If you don't have a primary care physician on staff, we will provide you with a referral. We always advise you to contact your personal physician following an emergency department visit to inform them of the circumstance of the visit and for follow-up with them and/or the need for any referrals to a consulting specialist. The emergency department will also refer you to a specialist when appropriate. This referral assures that you have the opportunity for follow-up care with a specialist. All of these measure are taken in an effort to provide you with optimal care, which includes your follow-up. Under all circumstances we always encourage you to contact your private physician who remains a resource for coordinating your care. When calling for follow-up care, please make the office aware that this follow-up is from your recent emergency room visit. If for any reason you are refused follow-up, please contact the [facility] Emergency Department at and asked to speak to the emergency department charge nurse. Sepsis Event Note (ED) - Evaluation Sepsis Screening Result: No Definite Risk
[2021-03-03 02:27] VITALS: PULSE 76
== END 2021-03-03 02:27 | disposition home or self-care (01) ==
LOC: MW.ED 22:22
DX: K92.1 Melena (principal); K64.4 Residual hemorrhoidal skin tags; I48.91 Unspecified atrial fibrillation; I10 Essential (primary) hypertension; Z91.018 Allergy to other foods; Z88.5 Allergy status to narcotic agent; Z79.899 Other long term (current) drug therapy; Z79.01 Long term (current) use of anticoagulants
CPT/HCPCS: 36415; 74176; 74176-26; 80048; 85025; 85610; 85730; 99283; 99284-25

== ENCOUNTER 2021-03-03 15:02 | Emergency (ER) | payer MEDICARE, BC ==
[2021-03-03] MEDS ORDERED: Sodium Chloride 0.9% 2.5 ML Syringe FLUSH PRN (15:49)
[2021-03-03] MEDS ORDERED: Sodium Chloride 0.9% 10 ML Syringe FLUSH PRN (15:49)
--- NOTE | 2021-03-03 15:52 | EDM.PDOC ---
ED HPI GENERAL MEDICAL PROBLEM - General Chief Complaint: Gastrointestinal Problem Stated Complaint: BLEEDING FROM RECTUM Time Seen by Provider: 03/03/21 15:13 - History of Present Illness INITIAL COMMENTS - FREE TEXT/NARRATIVE: History of present illness: [] The patient had 2 bowel movements that were all red blood at 4 AM and then after she got up this morning. She left. 2 AM after being evaluated for GI bleed. She had hemorrhoidal tissue but the CT was negative. She has a history of diverticulitis. She still not weak and dizzy. She is not diaphoretic. She is not vomiting. She does not have abdominal pain. The patient does have a history of an arrhythmia that she was told is atrial fibrillation but she is wearing a Zio patch and the door worker told her he is pretty sure she does not have atrial fibrillation. She is on Eliquis. Review of systems: As per history of present illness and below otherwise all systems reviewed and negative. Past medical history: As per history of present illness and as reviewed below otherwise noncontributory. Surgical history: As per history of present illness and as reviewed below otherwise noncontributory. Social history: No reported history of drug or alcohol abuse. Family history: As per history of present illness and as reviewed below otherwise noncontributory. Physical exam: Constitutional - well developed, well-nourished and in no acute distress HEENT - normocephalic, no evidence of trauma - external nose and mouth normal - no mass in neck and no JVD - mucosae moist EYES - full EOM, PERRL, no icterus - no evidence of inflammation, injection, or drainage Respiratory - no respiratory distress, equal bilateral expansion, lungs clear to auscultation and no abnormal lung sounds Cardiovascular - Regular Rhythm with S1 and S2 appreciated and no murmur, gallop or rub. GI - abdomen soft without distension or organomegaly - normal bowel sounds - no guard or rebound Musculoskeletal no gross deformity of long bones or joints - no tenderness, sw elling or edema Neurologic - Alert and oriented times four - CN II-XII grossly intact - motor sensory and coordination symmetrically normal Psychiatric - appropriate mood and affect with normal thought content Hematologic - No petechiae or purpura - mucosa appropriate color and sclera not pale - normal nail bed color and refill Integument - no rash or evidence of trauma - normal turgor Diagnostics: [] Therapeutics: [] Impression: [] Plan: [] Definitive disposition and diagnosis as appropriate pending reevaluation and review of above. - Related Data Allergies Allergy/AdvReac Type Severity Reaction Status Date / Time cantaloupe Allergy Other Verified 03/03/21 15:36 codeine Allergy Difficulty Verified 03/03/21 15:36 Breathing Home Meds: Home Meds Potassium Chloride [Klor-Con 10] 2 tab PO ACBRK 01/01/14 [History] Aspirin 1 tab PO DAILY 12/17/15 [History] Calcium Carbonate/Vitamin D3 [Calcium 600-Vit D3 500 Softgel] 1 cap PO DAILY 12/17/15 [History] Cholecalciferol (Vitamin D3) [Vitamin D3] 1 tab PO DAILY 12/17/15 [History] Multivitamin [Multivitamins] 1 tab PO DAILY 12/17/15 [History] Losartan [Cozaar] 100 mg PO DAILY 12/14/17 [History] Lenalidomide [Revlimid] 10 mg PO DAILY 03/12/20 [History] ALPRAZolam [Alprazolam] 0.25 mg PO ASDIRECTED PRN 02/10/21 [History] Apixaban [Eliquis] 2.5 mg PO BID #60 tablet 02/13/21 [Rx] Diltiazem [Cardizem CD] 240 mg PO DAILY #30 cap.er 02/13/21 [Rx] Hydrocortisone [Anusol-Hc] 30 gm TP TID #1 tube 03/03/21 [Rx] Past Medical History HEENT History: Reports: Impaired Vision Cardiovascular History: Reports: Afib, Hypertension Respiratory History: Reports: None Gastrointestinal History: Reports: Diverticulosis Other Gastrointestinal History: heartburn Genitourinary History: Reports: None 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 Dermatologic History: Reports: Other (See Below) Other Dermatologic History: multiple Myeloma - Infectious Disease History Infectious Disease History: Reports: Chicken Pox, Measles - Past Surgical History Head Surgeries/Procedures: Reports: None HEENT Surgical History: Reports: None Cardiovascular Surgical History: Reports: None GI Surgical History: Reports: Cholecystectomy, Small Bowel, Other (See Below) Other GI Surgeries/Procedures: ruptured intestines, dumping syndrome Female Surgical History: Reports: Breast Biopsy, Hysterectomy Endocrine Surgical History: Reports: None Neurological Surgical History: Reports: None Musculoskeletal Surgical History: Reports: None Oncologic Surgical History: Reports: None Dermatological Surgical History: Reports: None Social & Family History - Family History Family Medical History: No Pertinent Family History HEENT: Reports: None Cardiac: Reports: None - Tobacco Use Tobacco Use Status *Q: Never Tobacco User - Caffeine Use Caffeine Use: Reports: None - Recreational Drug Use Recreational Drug Use: No ED ROS GENERAL - Review of Systems Review Of Systems: Comprehensive ROS is negative, except as noted in HPI. ED EXAM, GENERAL - Physical Exam Exam: See Below Free Text/Narrative:: My physical exam is in the HPI #1 Interpretation EKG Interpretation Comments: EKG at 1601 sinus rhythm heart rate 83 NV 178 QT duration 440 axis -[address] and T impression normal Course - Vital Signs Text/Narrative:: The patient had a hemoglobin that was higher today. She is stable. Dr. Powers is thinking about taking her off Eliquis. Discussed with Dr. Pederson he and she said to have a colonoscopy arrange and use hemorrhoid steroid cream in the meantime to cool that off. Last Recorded V/S: Last Vital Signs Temp 36.6 C 03/03/21 15:36 Pulse 66 03/03/21 15:36 Resp 16 03/03/21 15:36 BP 128/79 03/03/21 15:36 Pulse Ox 96 03/03/21 15:36 - Orders/Labs/Meds Orders: Active Orders 24 hr Category Date Time Status Sodium Chloride 0.9% [Saline Flush] Med 03/03/21 15:49 Active 10 ml FLUSH ASDIRECTED PRN Sodium Chloride 0.9% [Saline Flush] Med 03/03/21 15:49 Active 2.5 ml FLUSH ASDIRECTED PRN Saline Lock Insert [OM.PC] Stat Oth 03/03/21 15:49 Ordered Medication Orders Sodium Chloride (Sodium Chloride 0.9% 10 Ml Syringe) 10 ml FLUSH ASDIRECTED PRN PRN Reason: Keep Vein Open Last Admin: 03/03/21 15:53 Dose: 10 ml Documented by: [email or web address] Sodium Chloride (Sodium Chloride 0.9% 2.5 Ml Syringe) 2.5 ml FLUSH ASDIRECTED PRN PRN Reason: Keep Vein Open Last Admin: 03/03/21 15:52 Dose: 2.5 ml Documented by: [id number] Labs: Laboratory Tests 03/03/21 03/03/21 Range/Units 16:00 16:00 WBC 3.21 L (4.0-11.0) K/uL RBC 3.48 L (4.30-5.90) M/uL Hgb 11.6 L (12.0-16.0) g/dL Hct 33.7 L (36.0-46.0) % MCV 96.8 (80.0-98.0) fL MCH 33.3 H (27.0-32.0) pg MCHC 34.4 (31.0-37.0) g/dL RDW Std Deviation 54.2 (28.0-62.0) fl RDW Coeff of Bubba 15 (11.0-15.0) % Plt Count 224 (150-400) K/uL MPV 9.80 (7.40-12.00) fL Add Manual Diff YES Neutrophils % (Manual) 40 L (48.0-80.0) % Band Neutrophils % 10 % Lymphocytes % (Manual) 33 (16.0-40.0) % Monocytes % (Manual) 17 H (0.0-15.0) % Nucleated RBC % 0.0 /100WBC Absolute Seg Neuts 1.3 L (1.4-5.7) Band Neutrophils # 0.3 Lymphocytes # (Manual) 1.1 (0.6-2.4) Monocytes # (Manual) 0.5 (0.0-0.8) Nucleated RBCs # 0 K/uL Sodium 144 (136-145) mmol/L Potassium 4.4 (3.5-5.1) mmol/L Chloride 112 H (98-107) mmol/L Carbon Dioxide 23.7 (21.0-32.0) mmol/L BUN 13 (7.0-18.0) mg/dL Creatinine 1.0 (0.6-1.0) mg/dL Est Cr Clr Drug Dosing 43.86 mL/min Estimated GFR (MDRD) 53.8 ml/min Glucose 96 (74-106) mg/dL Calcium 8.4 L (8.5-10.1) mg/dL Total Bilirubin 0.4 (0.2-1.0) mg/dL AST 16 (15-37) IU/L ALT 24 (14-63) IU/L Alkaline Phosphatase 72 (46-116) U/L Total Protein 5.4 L (6.4-8.2) g/dL Albumin 2.9 L (3.4-5.0) g/dL Globulin 2.5 L (2.6-4.0) g/dL Albumin/Globulin Ratio 1.2 (0.9-1.6) Meds: Medications Generic Name Dose Route Start Last Admin Trade Name Freq PRN Reason Stop Dose Admin Sodium Chloride 10 ml 03/03/21 15:49 03/03/21 15:53 Sodium Chloride 0.9% 10 Ml Syringe FLUSH 10 ml ASDIRECTED PRN Administration Keep Vein Open Sodium Chloride 2.5 ml 03/03/21 15:49 03/03/21 15:52 Sodium Chloride 0.9% 2.5 Ml Syringe FLUSH 2.5 ml ASDIRECTED PRN Administration Keep Vein Open Departure - Departure Time of Disposition: 17:11 Disposition: Home, Self-Care 01 Condition: Good Clinical Impression: Hemorrhoids, GI bleed, On apixaban therapy, History of atrial fibrillation - Discharge Information Prescriptions: Hydrocortisone [Anusol-Hc] 30 gm TP TID #1 tube Instructions: Lower Gastrointestinal Bleeding, Hemorrhoids, [id number] Referrals: Jonnathan Kirkland MD [Primary Care Provider] - Forms: ED Department Discharge Additional Instructions: Use the steroid cream that was prescribed for your hemorrhoids. Stop Eliquis. Return if you are sweaty weak dizzy or feel like you are going to pass out. Schedule surgery clinic for colonoscopy. [facility] - General Surgery Professional Building [address] [place] [address], [address] [place] [address] The following information is given to patients seen in the emergency department who are being discharged to home. This information is to outline your options for follow-up care. We provide all patients seen in our emergency department with a follow-up referral. The need for follow-up, as well as the timing and circumstances, are variable depending upon the specifics of your emergency department visit. If you don't have a primary care physician on staff, we will provide you with a referral. We always advise you to contact your personal physician following an emergency department visit to inform them of the circumstance of the visit and for follow-up with them and/or the need for any referrals to a consulting specialist. The emergency department will also refer you to a specialist when appropriate. This referral assures that you have the opportunity for follow-up care with a specialist. All of these measure are taken in an effort to provide you with optimal care, which includes your follow-up. Under all circumstances we always encourage you to contact your private fadyy sician who remains a resource for coordinating your care. When calling for follow-up care, please make the office aware that this follow-up is from your recent emergency room visit. If for any reason you are refused follow-up, please contact the [facility] Emergency Department at and asked to speak to the emergency department charge nurse. Sepsis Event Note (ED) - Evaluation Sepsis Screening Result: No Definite Risk - Focused Exam Vital Signs: Vital Signs Temp Pulse Resp BP Pulse Ox 03/03/21 15:36 36.6 C 66 16 128/79 96 - My Orders Last 24 Hours: My Active Orders 03/03/21 15:49 Sodium Chloride 0.9% [Saline Flush] 10 ml FLUSH ASDIRECTED PRN Sodium Chloride 0.9% [Saline Flush] 2.5 ml FLUSH ASDIRECTED PRN Saline Lock Insert [OM.PC] Stat - Assessment/Plan Last 24 Hours: My Active Orders 03/03/21 15:49 Sodium Chloride 0.9% [Saline Flush] 10 ml FLUSH ASDIRECTED PRN Sodium Chloride 0.9% [Saline Flush] 2.5 ml FLUSH ASDIRECTED PRN Saline Lock Insert [OM.PC] Stat
[2021-03-03 16:38] LABS: CARBON DIOXIDE,CO2 23.7 mmol/L (21.0-32.0); POTASSIUM,K 4.4 mmol/L (3.5-5.1)
[2021-03-03 17:23] VITALS: BP 118/82; PULSE 87
== END 2021-03-03 17:24 | disposition home or self-care (01) ==
LOC: MW.ED 15:02
DX: K92.2 Gastrointestinal hemorrhage, unspecified (principal); K64.9 Unspecified hemorrhoids; I48.91 Unspecified atrial fibrillation; I10 Essential (primary) hypertension; M19.90 Unspecified osteoarthritis, unspecified site; Z91.018 Allergy to other foods; Z88.5 Allergy status to narcotic agent; Z79.82 Long term (current) use of aspirin; Z79.01 Long term (current) use of anticoagulants; Z79.899 Other long term (current) drug therapy
CPT/HCPCS: 36415; 80053; 85025; 93005; 99283-25

== ENCOUNTER 2021-05-14 12:47 | Emergency (ER) | payer MEDICARE, BC ==
[2021-05-14] MEDS ORDERED: Sodium Chloride 0.9% 10 ML Syringe FLUSH PRN (13:59)
[2021-05-14] MEDS ORDERED: Sodium Chloride 0.9% 2.5 ML Syringe FLUSH PRN (13:59)
--- NOTE | 2021-05-14 14:03 | EDM.PDOC ---
ED HPI GENERAL MEDICAL PROBLEM - General Chief Complaint: Gastrointestinal Problem Stated Complaint: RECTAL BLEEDING Time Seen by Provider: 05/14/21 13:32 - History of Present Illness INITIAL COMMENTS - FREE TEXT/NARRATIVE: History of present illness: [] This pleasant 75-year-old female has bright red blood per rectum for 2 days. She has light brown stool with bright red blood around it. She does not have any significant abdominal pain. She does not have any other GI complaints. The patient was seen in the middle of last year for a GI bleed and her hemoglobin was stable and she was referred for colonoscopy. She had what looked like colitis on her CT scan. She was placed on antibiotics and improved. The patient did not follow-up for colonoscopy but has had colonoscopy within the last 3 years. It was negative. The patient is on chemotherapy for lung cancer. She quit smoking 50 years ago. She also has a history of multiple myeloma. Review of systems: As per history of present illness and below otherwise all systems reviewed and negative. Past medical history: As per history of present illness and as reviewed below otherwise noncontributory. Surgical history: As per history of present illness and as reviewed below otherwise noncontributory. Social history: No reported history of drug or alcohol abuse. Family history: As per history of present illness and as reviewed below otherwise noncontr ibutory. Physical exam: Constitutional - well developed, well-nourished and in no acute distress HEENT - normocephalic, no evidence of trauma - external nose and mouth normal - no mass in neck and no JVD - mucosae moist EYES - full EOM, PERRL, no icterus - no evidence of inflammation, injection, or drainage Respiratory - no respiratory distress, equal bilateral expansion, lungs clear to auscultation and no abnormal lung sounds Cardiovascular - Regular Rhythm with S1 and S2 appreciated and no murmur, gallop or rub. GI - abdomen soft without distension or organomegaly - normal bowel sounds - no guard or rebound Musculoskeletal no gross deformity of long bones or joints - no tenderness, swelling or edema Neurologic - Alert and oriented times four - CN II-XII grossly intact - motor sensory and coordination symmetrically normal Psychiatric - appropriate mood and affect with normal thought content Hematologic - No petechiae or purpura - mucosa appropriate color and sclera not pale - normal nail bed color and refill Integument - no rash or evidence of trauma - normal turgor Diagnostics: [] Therapeutics: [] Impression: [] Plan: [] Definitive disposition and diagnosis as appropriate pending reevaluation and review of above. - Related Data Allergies Allergy/AdvReac Type Severity Reaction Status Date / Time cantaloupe Allergy Other Verified 03/03/21 15:36 codeine Allergy Difficulty Verified 03/03/21 15:36 Breathing Home Meds: Home Meds Potassium Chloride [Klor-Con 10] 2 tab PO ACBRK 01/01/14 [History] Aspirin 1 tab PO DAILY 12/17/15 [History] Calcium Carbonate/Vitamin D3 [Calcium 600-Vit D3 500 Softgel] 1 cap PO DAILY 12/17/15 [History] Cholecalciferol (Vitamin D3) [Vitamin D3] 1 tab PO DAILY 12/17/15 [History] Multivitamin [Multivitamins] 1 tab PO DAILY 12/17/15 [History] Losartan [Cozaar] 100 mg PO DAILY 12/14/17 [History] ALPRAZolam [Alprazolam] 0.25 mg PO ASDIRECTED PRN 02/10/21 [History] Diltiazem [Cardizem CD] 240 mg PO DAILY #30 cap.er 02/13/21 [Rx] Hydrocortisone [Anusol-Hc] 30 gm TP TID #1 tube 03/03/21 [Rx] Past Medical History HEENT History: Reports: Hard of Hearing, Impaired Vision Cardiovascular History: Reports: Afib, Hypertension Respiratory History: Reports: Other (See Below) Other Respiratory History: Lung CAon Chemo therapy Gastrointestinal History: Reports: Chronic Diarrhea, Diverticulosis, GI Bleed Other Gastrointestinal History: heartburn Genitourinary History: Reports: 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 Dermatologic History: Reports: Other (See Below) Other Dermatologic History: multiple Myeloma - Infectious Disease History Infectious Disease History: Reports: Chicken Pox, Measles - Past Surgical History Head Surgeries/Procedures: Reports: None HEENT Surgical History: Reports: None Cardiovascular Surgical History: Reports: None GI Surgical History: Reports: Cholecystectomy, Colonoscopy, Small Bowel, Other (See Below) Other GI Surgeries/Procedures: ruptured intestines, dumping syndrome Female Surgical History: Reports: Breast Biopsy, Hysterectomy Endocrine Surgical History: Reports: None Neurological Surgical History: Reports: None Musculoskeletal Surgical History: Reports: None Oncologic Surgical History: Reports: None Dermatological Surgical History: Reports: None Social & Family History - Family History Family Medical History: No Pertinent Family History HEENT: Reports: None Cardiac: Reports: None - Tobacco Use Tobacco Use Status *Q: Never Tobacco User Second Hand Smoke Exposure: Yes - Caffeine Use Caffeine Use: Reports: Coffee - Recreational Drug Use Recreational Drug Use: No ED ROS GENERAL - Review of Systems Review Of Systems: Comprehensive ROS is negative, except as noted in HPI. ED EXAM, GENERAL - Physical Exam Exam: See Below Free Text/Narrative:: My physical exam is in the HPI Course - Vital Signs Text/Narrative:: 1425 hrs. the patient is stable in no acute distress. Vital signs are stable. Perianal exam done with nursing assistance and she has hemorrhoidal tags but no obvious clot. Therefore with her permission I did a rectal exam and obtain light brown stool that is heme-negative. Stool is heme-negative Last Recorded V/S: Last Vital Signs Temp 36.4 C 05/14/21 13:22 Pulse 91 05/14/21 13:52 Resp 18 05/14/21 13:22 BP 123/85 05/14/21 13:52 Pulse Ox 97 05/14/21 13:52 - Orders/Labs/Meds Orders: Active Orders 24 hr Category Date Time Status Communication Order [RC] STAT Care 05/14/21 14:00 Active Sodium Chloride 0.9% [Saline Flush] Med 05/14/21 13:59 Active 10 ml FLUSH ASDIRECTED PRN Sodium Chloride 0.9% [Saline Flush] Med 05/14/21 13:59 Active 2.5 ml FLUSH ASDIRECTED PRN Saline Lock Insert [OM.PC] Stat Oth 05/14/21 13:59 Ordered Medication Orders Sodium Chloride (Sodium Chloride 0.9% 10 Ml Syringe) 10 ml FLUSH ASDIRECTED PRN PRN Reason: Keep Vein Open Last Admin: 05/14/21 14:36 Dose: 10 ml Documented by: MELINA Sodium Chloride (Sodium Chloride 0.9% 2.5 Ml Syringe) 2.5 ml FLUSH ASDIRECTED PRN PRN Reason: Keep Vein Open Last Admin: 05/14/21 14:35 Dose: 2.5 ml Documented by: MELINA Labs: Laboratory Tests 05/14/21 05/14/21 05/14/21 Range/Units 14:20 14:20 14:20 WBC 9.00 (4.0-11.0) K/uL RBC 3.35 L (4.30-5.90) M/uL Hgb 11.5 L (12.0-16.0) g/dL Hct 32.6 L (36.0-46.0) % MCV 97.3 (80.0-98.0) fL MCH 34.3 H (27.0-32.0) pg MCHC 35.3 (31.0-37.0) g/dL RDW Std Deviation 52.4 (28.0-62.0) fl RDW Coeff of Bubba 15 (11.0-15.0) % Plt Count 136 L (150-400) K/uL MPV 9.50 (7.40-12.00) fL Neut % (Auto) 82.0 H (48.0-80.0) % Lymph % (Auto) 10.2 L (16.0-40.0) % Frontier % (Auto) 7.7 (0.0-15.0) % Eos % (Auto) 0.0 (0.0-7.0) % Baso % (Auto) 0.1 (0.0-1.5) % Neut # (Auto) 7.4 H (1.4-5.7) K/uL Lymph # (Auto) 0.9 (0.6-2.4) K/uL Frontier # (Auto) 0.7 (0.0-0.8) K/uL Eos # (Auto) 0.0 (0.0-0.7) K/uL Baso # (Auto) 0.0 (0.0-0.1) K/uL Nucleated RBC % 0.0 /100WBC Nucleated RBCs # 0 K/uL INR 0.99 APTT 20.3 (18.6-31.3) SEC Sodium 144 (136-145) mmol/L Potassium 4.0 (3.5-5.1) mmol/L Chloride 107 (98-107) mmol/L Carbon Dioxide 27.4 (21.0-32.0) mmol/L BUN 17 (7.0-18.0) mg/dL Creatinine 1.1 H (0.6-1.0) mg/dL Est Cr Clr Drug Dosing 38.12 mL/min Estimated GFR (MDRD) 48.2 ml/min Glucose 96 (74-106) mg/dL Calcium 8.6 (8.5-10.1) mg/dL Total Bilirubin 0.5 (0.2-1.0) mg/dL AST 17 (15-37) IU/L ALT 24 (14-63) IU/L Alkaline Phosphatase 66 (46-116) U/L Total Protein 5.4 L (6.4-8.2) g/dL Albumin 2.7 L (3.4-5.0) g/dL Globulin 2.7 (2.6-4.0) g/dL Albumin/Globulin Ratio 1.0 (0.9-1.6) Meds: Medications Generic Name Dose Route Start Last Admin Trade Name Freq PRN Reason Stop Dose Admin Sodium Chloride 10 ml 05/14/21 13:59 05/14/21 14:36 Sodium Chloride 0.9% 10 Ml Syringe FLUSH 10 ml ASDIRECTED PRN Administration Keep Vein Open Sodium Chloride 2.5 ml 05/14/21 13:59 05/14/21 14:35 Sodium Chloride 0.9% 2.5 Ml Syringe FLUSH 2.5 ml ASDIRECTED PRN Administration Keep Vein Open Departure - Departure Time of Disposition: 15:00 Disposition: Home, Self-Care 01 Condition: Good Clinical Impression: Hemorrhoids, Rectal bleed - Discharge Information Instructions: Rectal Bleeding, Hemorrhoids, [id number] Referrals: Jonnathan Kirkland MD [Primary Care Provider] - Forms: ED Department Discharge Additional Instructions: In [place] endoscopy is done by the surgeons. You should make an appointment because any GI bleed she did have colonoscopy at least. Your hemorrhoids are probably the cause of the bleeding so do not use any rough toilet paper, make sure you are on a stool softener and plenty of fluids and having loose or soft stools. Make sure that you take care of any probably caused you to strain bear down or have to strain at stool, do not lift anything heavy. [facility] - General Surgery Professional Building [address] [place] [address], [address] [place] [address] The following information is given to patients seen in the emergency department who are being discharged to home. This information is to outline your options for follow-up care. We provide all patients seen in our emergency department with a follow-up referral. The need for follow-up, as well as the timing and circumstances, are variable depending upon the specifics of your emergency department visit. If you don't have a primary care physician on staff, we will provide you with a referral. We always advise you to contact your personal physician following an emergency department visit to inform them of the circumstance of the visit and for follow-up with them and/or the need for any referrals to a consulting specialist. The emergency department will also refer you to a specialist when appropriate. This referral assures that you have the opportunity for follow-up care with a specialist. All of these measure are taken in an effort to provide you with optimal care, which includes your follow-up. Under all circumstances we always encourage you to contact your private physician who remains a resource for coordinating your care. When calling for follow-up care, please make the office aware that this follow-up is from your recent emergency room visit. If for any reason you are refused follow-up, please contact the [facility] Emergency Department at and asked to speak to the emergency department charge nurse. Sepsis Event Note (ED) - Focused Exam Vital Signs: Vital Signs Temp Pulse Resp BP Pulse Ox 05/14/21 13:52 91 123/85 97 05/14/21 13:22 36.4 C 99 18 115/70 96 - My Orders Last 24 Hours: My Active Orders 05/14/21 13:59 Sodium Chloride 0.9% [Saline Flush] 10 ml FLUSH ASDIRECTED PRN Sodium Chloride 0.9% [Saline Flush] 2.5 ml FLUSH ASDIRECTED PRN Saline Lock Insert [OM.PC] Stat 05/14/21 14:00 Communication Order [RC] STAT - Assessment/Plan Last 24 Hours: My Active Orders 05/14/21 13:59 Sodium Chloride 0.9% [Saline Flush] 10 ml FLUSH ASDIRECTED PRN Sodium Chloride 0.9% [Saline Flush] 2.5 ml FLUSH ASDIRECTED PRN Saline Lock Insert [OM.PC] Stat 05/14/21 14:00 Communication Order [RC] STAT
[2021-05-14 14:51] LABS: CARBON DIOXIDE,CO2 27.4 mmol/L (21.0-32.0)
[2021-05-14 15:16] VITALS: BP 135/85; PULSE 82
== END 2021-05-14 15:27 | disposition home or self-care (01) ==
LOC: MW.ED 12:47
DX: K62.5 Hemorrhage of anus and rectum (principal); K64.9 Unspecified hemorrhoids; I48.91 Unspecified atrial fibrillation; I10 Essential (primary) hypertension; M19.90 Unspecified osteoarthritis, unspecified site; Z77.22 Contact with and (suspected) exposure to environmental tobacco smoke (acute) (chronic); Z88.5 Allergy status to narcotic agent; Z91.018 Allergy to other foods; Z79.82 Long term (current) use of aspirin; Z79.899 Other long term (current) drug therapy
CPT/HCPCS: 36415; 80053; 85025; 85610; 85730; 99284; J1642

== ENCOUNTER 2022-01-05 11:24 | Observation (INO) | payer MEDICARE, BC ==
[2022-01-05 14:29] LABS: BLOOD UREA NITROGEN,BUN 25 mg/dL (7.0-18.0); CARBON DIOXIDE,CO2 22.3 mmol/L (21.0-32.0); CHLORIDE,CL 107 mmol/L (98-107); GLUCOSE RANDOM 126 mg/dL (74-106); POTASSIUM,K 3.6 mmol/L (3.5-5.1); SODIUM,NA 142 mmol/L (136-145)
[2022-01-05] MEDS ORDERED: Aspirin 81 MG Tab.Chew PO ONE (14:33)
[2022-01-05] MEDS ORDERED: Magnesium Sulfate/Water 2 GM in Premix Bag 1 BAG IV ONE (14:34)
[2022-01-05] MEDS ORDERED: Iopamidol 755 MG/ML 500 ML Multipack Bottle IVPUSH ONE (15:10)
[2022-01-05] MEDS ORDERED: Lactated Ringers 1,000 ML IV STA (16:10)
[2022-01-05] MEDS ORDERED: Melatonin 3 MG Tab PO PRN (23:11)
[2022-01-05] MEDS: Amiodarone 200 MG Tab PO SCH (23:44)
[2022-01-05] MEDS: Diltiazem 120 MG Cap.CD PO SCH (23:45)
[2022-01-06 07:30] LABS: CARBON DIOXIDE,CO2 23.5 mmol/L (21.0-32.0); POTASSIUM,K 3.6 mmol/L (3.5-5.1)
[2022-01-06] MEDS ORDERED: Amiodarone 200 MG Tab PO SCH (09:00)
[2022-01-06] MEDS ORDERED: Diltiazem 120 MG Cap.CD PO SCH (09:00)
[2022-01-06] MEDS: Aspirin 81 MG Tab.Chew PO SCH (09:23)
[2022-01-06] MEDS: Losartan 50 MG Tab PO SCH (09:23)
[2022-01-06] MEDS ORDERED: ALPRAZolam 0.25 MG Tab PO PRN (12:28)
[2022-01-06 12:51] LABS: HEMOGLOBIN A1C 5.7 %
[2022-01-06] MEDS ORDERED: Magnesium Sulfate/Water 2 GM in Premix Bag 1 BAG IV SCH (17:30)
[2022-01-06] MEDS ORDERED: Magnesium Sulfate/Water 2 GM in Premix Bag 1 BAG IV ONE (17:41)
[2022-01-06] MEDS: cefTRIAXone 1 GM in Sodium Chloride 0.9% 50 ML IV SCH (18:11)
[2022-01-06] MEDS: Azithromycin 500 MG in Sodium Chloride 0.9% 250 ML IV SCH (18:53)
[2022-01-06] MEDS: Amiodarone 200 MG Tab PO SCH (20:35)
[2022-01-06] MEDS: Diltiazem 120 MG Cap.CD PO SCH (20:35)
[2022-01-07 07:21] LABS: CARBON DIOXIDE,CO2 24.9 mmol/L (21.0-32.0); POTASSIUM,K 3.5 mmol/L (3.5-5.1)
[2022-01-07] MEDS ORDERED: Potassium Chloride 20 MEQ Tab.ER PO SCH (07:30)
[2022-01-07] MEDS: Aspirin 81 MG Tab.Chew PO SCH (09:12)
[2022-01-07] MEDS: Losartan 50 MG Tab PO SCH (09:12)
[2022-01-07] MEDS: Azithromycin 500 MG in Sodium Chloride 0.9% 250 ML IV SCH (09:13)
[2022-01-07] MEDS: cefTRIAXone 1 GM in Sodium Chloride 0.9% 50 ML IV SCH (17:42)
[2022-01-07] MEDS: Amiodarone 200 MG Tab PO SCH (20:17)
[2022-01-07] MEDS: Diltiazem 120 MG Cap.CD PO SCH (20:17)
[2022-01-07 20:18] VITALS: BP 135/70; PULSE 74
== END 2022-01-07 21:55 | disposition home or self-care (01) ==
LOC: MW.ED 11:24 → MW.MS 19:39
PROVIDERS: ADMIT Internal Medicine; ATTEND Internal Medicine
DX: J96.21 Acute and chronic respiratory failure with hypoxia (principal); R77.8 Other specified abnormalities of plasma proteins; J90 Pleural effusion, not elsewhere classified; I25.10 Atherosclerotic heart disease of native coronary artery without angina pectoris; I12.9 Hypertensive chronic kidney disease with stage 1 through stage 4 chronic kidney disease, or unspecified chronic kidney disease; I48.91 Unspecified atrial fibrillation; G43.909 Migraine, unspecified, not intractable, without status migrainosus; D64.9 Anemia, unspecified; N18.9 Chronic kidney disease, unspecified; N17.9 Acute kidney failure, unspecified; E83.42 Hypomagnesemia; R73.9 Hyperglycemia, unspecified; Z20.822 Contact with and (suspected) exposure to COVID-19; Z88.5 Allergy status to narcotic agent; Z88.8 Allergy status to other drugs, medicaments and biological substances; Z79.899 Other long term (current) drug therapy; Z79.82 Long term (current) use of aspirin; Z98.890 Other specified postprocedural states; Z90.49 Acquired absence of other specified parts of digestive tract
CPT/HCPCS: 36415; 36430; 71045; 71275; 80048; 80053; 83036; 83735; 83880; 84484; 85014; 85018; 85025; 85027; 85610; 86850; 86900; 86901; 86920; 93005; 96365; 96366; 99291; A9270; J0456; J0696; J3475; J7050; J7120; P9016; Q9967; U0002; 96367; 96375; 96376; G0378

== ENCOUNTER 2022-01-10 08:18 | Emergency (ER) | payer MEDICARE, BC ==
[2022-01-10 08:29] VITALS: BP 129/93; PULSE 71
[2022-01-10] MEDS ORDERED: Aspirin 81 MG Tab.Chew PO ONE (08:34)
[2022-01-10] MEDS ORDERED: Nitroglycerin 0.4 MG Tab.SL SL ONE (08:35)
[2022-01-10 09:13] LABS: CARBON DIOXIDE,CO2 25.5 mmol/L (21.0-32.0); POTASSIUM,K 3.3 mmol/L (3.5-5.1)
[2022-01-10] MEDS ORDERED: Magnesium Sulfate/Water 2 GM in Premix Bag 1 BAG IV ONE (09:20)
[2022-01-10] MEDS ORDERED: Potassium Chloride 20 MEQ Tab.ER PO ONE (09:20)
== END 2022-01-10 11:49 ==
LOC: MW.ED 08:18
DX: R07.9 Chest pain, unspecified (principal); I48.91 Unspecified atrial fibrillation; I10 Essential (primary) hypertension; Z88.5 Allergy status to narcotic agent; Z88.8 Allergy status to other drugs, medicaments and biological substances; Z79.82 Long term (current) use of aspirin; Z79.899 Other long term (current) drug therapy; Z20.822 Contact with and (suspected) exposure to COVID-19
CPT/HCPCS: 36415; 71045; 71045-26; 80053; 81003; 83735; 83880; 84484; 85025; 85610; 85730; 93005; 93010; 96365; 96366; 99285; 99285-25; A9270-GY; J3475; U0002

== ENCOUNTER 2022-02-16 23:43 | Emergency (ER) | payer MEDICARE, BC ==
[2022-02-17] MEDS ORDERED: Ondansetron 4 MG/2 ML SDV ONE (00:16)
[2022-02-17] MEDS ORDERED: Ondansetron 4 MG/2 ML SDV IVPUSH ONE (00:16)
[2022-02-17 01:05] LABS: BLOOD UREA NITROGEN,BUN 23 mg/dL (7.0-18.0); CARBON DIOXIDE,CO2 21.5 mmol/L (21.0-32.0); CHLORIDE,CL 106 mmol/L (98-107); GLUCOSE RANDOM 190 mg/dL (74-106); POTASSIUM,K 3.7 mmol/L (3.5-5.1); SODIUM,NA 141 mmol/L (136-145)
[2022-02-17 01:11] LABS: ESTIMATED GFR 25 mL/min (>60)
[2022-02-17 05:27] VITALS: BP 128/71; PULSE 87
== END 2022-02-17 05:31 | disposition home or self-care (01) ==
LOC: MW.ED 23:43
DX: J90 Pleural effusion, not elsewhere classified (principal); I48.91 Unspecified atrial fibrillation; I10 Essential (primary) hypertension; Z88.5 Allergy status to narcotic agent; Z88.8 Allergy status to other drugs, medicaments and biological substances; Z20.822 Contact with and (suspected) exposure to COVID-19
CPT/HCPCS: 36415; 71045; 80053; 82550; 83735; 84484; 85025; 85610; 93005; 96374; 99285; J2405; U0002; 93010; 99284

== ENCOUNTER 2022-05-29 17:04 | Emergency (ER) | payer MEDICARE, BC ==
[2022-05-29] MEDS ORDERED: Morphine 4 MG/ML Syringe IV ONE (17:45)
[2022-05-29] MEDS ORDERED: Ondansetron 4 MG/2 ML SDV IVPUSH ONE (17:46)
[2022-05-29] MEDS ORDERED: Aspirin 81 MG Tab.Chew PO ONE (17:46)
== END 2022-05-29 20:30 ==
LOC: MW.ED 17:04
DX: R07.89 Other chest pain (principal)
CPT/HCPCS: 71045; 96374; 96375; 99285; A9270; J2270; J2405; 93010; 99284